=== PATIENT | male | born 1980 | race Caucasian/White ===

== ENCOUNTER 2017-03-29 03:43 | Emergency (ER) | payer SELFPAY ==
[~2017-03-29] VITALS: Ht 175.3 cm; Wt 95.3 kg
[2017-03-29 04:28] VITALS: BP 164/111
[2017-03-29] MEDS ORDERED: ceFAZolin IM 1 GM VIAL IM ONE ×2 (05:00→06:00)
[2017-03-29] MEDS ORDERED: LIDOCAINE 1% / SOD BICARB 8.4% 20 ML VIAL. IJ ONE (05:44)
[2017-03-29] MEDS ORDERED: CEPH-264 PO (06:33)
[2017-03-29] MEDS ORDERED: IBUP-1007 PO (06:33)
--- NOTE | 2017-03-29 06:33 | PHYS DOC ---
Past Medical History Past Medical History: Hypertension Past Surgical History: Other Additional Past Surgical Histo: T&M TUBES Alcohol Use: Rarely Drug Use: Marijuana Adult General Chief Complaint Chief Complaint: WOUND CHECK HPI HPI Patient is a 36 year old [f__sex] who presents with [] Review of Systems Review of Systems Constitutional: Denies fever or chills [] Eyes: Denies change in visual acuity, redness, or eye pain [] HENT: Denies nasal congestion or sore throat [] Respiratory: Denies cough or shortness of breath [] Cardiovascular: No additional information not addressed in HPI [] GI: Denies abdominal pain, nausea, vomiting, bloody stools or diarrhea [] : Denies dysuria or hematuria [] Musculoskeletal: Denies back pain or joint pain [] Integument: Denies rash or skin lesions [] Neurologic: Denies headache, focal weakness or sensory changes [] Endocrine: Denies polyuria or polydipsia [] Current Medications Current Medications Current Medications Medications (Trade) Dose Ordered Sig/Terrell Start Time Stop Time Status Last Admin Dose Admin Cefazolin Sodium (Ancef Im) 1 gm 1X ONCE 03/29/17 06:00 03/29/17 06:01 DC 03/29/17 05:50 1 GM Lidocaine/Sodium Bicarbonate (Buffered Lidocaine 1%) 20 ml STK-MED ONCE 03/29/17 05:44 03/29/17 05:45 DC Allergies Allergies Allergies Coded Allergies Type Severity Reaction Last Updated Verified No Known Drug Allergies 12/17/15 No Physical Exam Physical Exam Constitutional: Well developed, well nourished, no acute distress, non-toxic appearance. [] HENT: Normocephalic, atraumatic, bilateral external ears normal, oropharynx moist, no oral exudates, nose normal. [] Eyes: PERRLA, EOMI, conjunctiva normal, no discharge. [] Neck: Normal range of motion, no tenderness, supple, no stridor. [] Cardiovascular:Heart rate regular rhythm, no murmur [] Lungs & Thorax: Bilateral breath sounds clear to auscultation [] Abdomen: Bowel sounds normal, soft, no tenderness, no masses, no pulsatile masses. [] Skin: Warm, dry, no erythema, no rash. [] Back: No tenderness, no CVA tenderness. [] Extremities: No tenderness, no cyanosis, no clubbing, ROM intact, no edema. [] Neurologic: Alert and oriented X 3, normal motor function, normal sensory function, no focal deficits noted. [] Psychologic: Affect normal, judgement normal, mood normal. [] Current Patient Data Vital Signs Vital Signs Date Time Temp Pulse Resp B/P (MAP) Pulse Ox O2 Delivery O2 Flow Rate FiO2 03/29/17 04:28 98.1 98 18 97 Room Air 98.1 EKG EKG [] Radiology/Procedures Radiology/Procedures [] Course & Med Decision Making Course & Med Decision Making Pertinent Labs and Imaging studies reviewed. (See chart for details) [] Dragon Disclaimer Dragon Disclaimer This electronic medical record was generated, in whole or in part, using a voice recognition dictation system. Departure Departure Impression: Primary Impression: Muscle laceration Additional Impression: Wristdrop Disposition: 01 HOME, SELF-CARE Condition: STABLE Referrals: NO PCP (PCP) Patient Instructions: Cast or Splint Care, Laceration Care, Adult Additional Instructions: You have a laceration of the muscle in her forearm that's causing you to have lack of motion of your left wrist. I have spoken to at and they will contact you to arrange for surgery. If he do not hear from 's nurse by tomorrow, please call them at [phone] and let them know that you were seen in the ER and that Dr. Galarza was consulted for your care. Keep your splint on. Take the antibiotics as prescribed Scripts Cephalexin (KEFLEX) 500 Mg Capsule 500 MG PO QID for 10 Days, CAP Prov: REMIGIO LOGAN MD 03/29/17 Ibuprofen (IBUPROFEN) 600 Mg Tablet 600 MG PO PRN Q6HRS Y for PAIN, #20 TAB Prov: REMIGIO LOGAN MD 03/29/17 Splinting Splinting : Location: left arm Hand-Made Type: orthoglass Splint: volar Pre-Proc Neuro Vasc Exam: normal Post-Proc Neuro Vasc Exam: normal Problem Qualifiers Additional Impression: Wristdrop Laterality: left Qualified Codes: M21.332 - Wrist drop, left wrist REMIGIO LOGAN MD Mar 29, 2017 06:33 ESTER SOARES APRN Mar 29, 2017 07:18
--- NOTE | 2017-03-29 07:22 | RAD ---
EXAM: Left forearm 2 views. HISTORY: Laceration. COMPARISON: None. FINDINGS: There is a soft tissue defect along the radial aspect of the distal forearm. There is no radiopaque foreign body. No acute fractures are identified. There appears to be a chronic fracture of the fifth metacarpal. The joint spaces and alignment of the wrist and elbow appear maintained. IMPRESSION: 1. Soft tissue laceration laterally. No fracture or radiopaque foreign body.
== END 2017-03-29 07:20 | disposition home or self-care (01) ==
LOC: ER 03:43
DX: S66.822A Laceration of other specified muscles, fascia and tendons at wrist and hand level, left hand, initial encounter (principal); M21.332 Wrist drop, left wrist; I10 Essential (primary) hypertension; F12.10 Cannabis abuse, uncomplicated; X58.XXXA Exposure to other specified factors, initial encounter; Y93.89 Activity, other specified; Y99.8 Other external cause status; Y92.89 Other specified places as the place of occurrence of the external cause
CPT/HCPCS: 29125; 73090; 96372; 99284; J0690

== ENCOUNTER 2017-07-05 16:42 | Emergency (ER) | payer SELFPAY ==
[~2017-07-05] VITALS: Ht 175.3 cm; Wt 93.0 kg
[~2017-07-05 16:42] MED LIST: CEPH-264 PO; IBUP-1007 PO
--- NOTE | 2017-07-05 18:21 | PHYS DOC ---
Past Medical History Past Medical History: Hypertension Past Surgical History: Other Additional Past Surgical Histo: T&M TUBES, Adnoids removed. Alcohol Use: Rarely Drug Use: Marijuana Adult General Chief Complaint Chief Complaint: LOWER EXTREMITY SWELLING HPI HPI Patient is a 36 year old male who presents with one to 2 week history of progressive lower extremity edema right greater than left now with some discomfort in the legs; no chest pain or shortness of breath onset was gradual, moderate severity. He reports erythema but no fever. Reports hypertension is untreated and denies any history of blood clots to the legs or lungs or congestive heart failure. Review of Systems Review of Systems Constitutional: Denies fever or chills [] Eyes: Denies change in visual acuity, redness, or eye pain [] HENT: Denies nasal congestion or sore throat [] Respiratory: Denies cough or shortness of breath [] Cardiovascular: No additional information not addressed in HPI [] GI: Denies abdominal pain, nausea, vomiting, bloody stools or diarrhea [] : Denies dysuria or hematuria [] Musculoskeletal: Denies back pain or joint pain [] Integument: Denies rash or skin lesions [] Neurologic: Denies headache, focal weakness or sensory changes [] Endocrine: Denies polyuria or polydipsia [] Allergies Allergies Allergies Coded Allergies Type Severity Reaction Last Updated Verified No Known Drug Allergies 12/17/15 No Physical Exam Physical Exam Constitutional: Well developed, well nourished, no acute distress, non-toxic appearance. [] HENT: Normocephalic, atraumatic, bilateral external ears normal, oropharynx moist, no oral exudates, nose normal. [] Eyes: PERRLA, EOMI, conjunctiva normal, no discharge. [] Neck: Normal range of motion, no tenderness, supple, no stridor. [] Cardiovascular:Heart rate regular rhythm, no murmur [] Lungs & Thorax: Bilateral breath sounds clear to auscultation [] Abdomen: Bowel sounds normal, soft, no tenderness, no masses, no pulsatile masses. [] Skin: Warm, dry, no erythema, no rash. [] Back: No tenderness, no CVA tenderness. [] Extremities:, no cyanosis, no clubbing, ROM intact, edema right greater than left with erythema right greater than left and tenderness to palpation below the knee Neurologic: Alert and oriented X 3, normal motor function, normal sensory function, no focal deficits noted. [] Psychologic: Affect normal, judgement normal, mood normal. [] Current Patient Data Vital Signs Vital Signs Date Time Temp Pulse Resp B/P (MAP) Pulse Ox O2 Delivery O2 Flow Rate FiO2 07/05/17 19:30 100 172/108 (129) 99 07/05/17 17:05 98.2 17 Room Air 98.2 Lab Values Laboratory Tests Test 07/05/17 18:15 07/05/17 18:23 White Blood Count 11.9 x10^3/uL (4.0-11.0) H Red Blood Count 4.69 x10^6/uL (4.30-5.70) Hemoglobin 14.0 g/dL (13.0-17.5) Hematocrit 40.5 % (39.0-53.0) Mean Corpuscular Volume 87 fL (79-100) Mean Corpuscular Hemoglobin 30 pg (25-35) Mean Corpuscular Hemoglobin Concent 35 g/dL (31-37) Red Cell Distribution Width 13.3 % (11.5-14.5) Platelet Count 331 x10^3/uL (140-400) Neutrophils (%) (Auto) 75 % (31-73) H Lymphocytes (%) (Auto) 15 % (24-48) L Monocytes (%) (Auto) 8 % (0-9) Eosinophils (%) (Auto) 2 % (0-3) Basophils (%) (Auto) 1 % (0-3) Neutrophils # (Auto) 8.8 x10^3uL (1.8-7.7) H Lymphocytes # (Auto) 1.7 x10^3/uL (1.0-4.8) Monocytes # (Auto) 0.9 x10^3/uL (0.0-1.1) Eosinophils # (Auto) 0.3 x10^3/uL (0.0-0.7) Basophils # (Auto) 0.1 x10^3/uL (0.0-0.2) Sodium Level 139 mmol/L (136-145) Potassium Level 3.4 mmol/L (3.5-5.1) L Chloride Level 104 mmol/L (98-107) Carbon Dioxide Level 28 mmol/L (21-32) Anion Gap 7 (6-14) Blood Urea Nitrogen 17 mg/dL (8-26) Creatinine 1.1 mg/dL (0.7-1.3) Estimated GFR (Cockcroft-Gault) 75.3 BUN/Creatinine Ratio 15 (6-20) Glucose Level 131 mg/dL (70-99) H Calcium Level 8.5 mg/dL (8.5-10.1) Total Bilirubin 0.5 mg/dL (0.2-1.0) Aspartate Amino Transferase (AST) 22 U/L (15-37) Alanine Aminotransferase (ALT) 38 U/L (16-63) Alkaline Phosphatase 133 U/L (46-116) H MQ-Eoe-I-Type Natriuretic Peptide 56 pg/mL (0-124) Total Protein 6.6 g/dL (6.4-8.2) Albumin 3.1 g/dL (3.4-5.0) L Albumin/Globulin Ratio 0.9 (1.0-1.7) L POC Troponin I 0.00 ng/ml (<0.08) Laboratory Tests 07/05/17 18:15 Laboratory Tests 07/05/17 18:15 EKG EKG EKG sinus rhythm rate of 97 no STEMI QTC 446 signs of strain my interpretation EKG[] Radiology/Procedures Radiology/Procedures Chest x-ray[] normal no evidence of heart failure my interpretation Ultrasound bilateral lower extremities: No DVTs per radiology Course & Med Decision Making Course & Med Decision Making Pertinent Labs and Imaging studies reviewed. (See chart for details) Workup appears to be consistent with that with cellulitis and we will sent home with a prescription for clindamycin, advised to elevate the legs for the swelling, and advised follow-up PCP for eval of blood pressure meds.[] Dragon Disclaimer Dragon Disclaimer This electronic medical record was generated, in whole or in part, using a voice recognition dictation system. Departure Departure Impression: Primary Impression: Cellulitis of both lower extremities Disposition: 01 HOME, SELF-CARE Condition: STABLE Referrals: NO PCP (PCP) Patient Instructions: Cellulitis, [id number], Hypertension During , Meii-je-Ojiz Scripts Clindamycin Hcl (CLINDAMYCIN HCL) 150 Mg Capsule 2 CAP PO QID for 7 Days, #56 CAP Prov: DICK ISABEL MD 07/05/17 DICK ISABEL MD Jul 05, 2017 18:21
[2017-07-05 18:28] LABS: BASO # 0.1 x10^3/uL (0.0-0.2); BASO % 1 % (0-3); EOS % 2 % (0-3); HEMATOCRIT 40.5 % (39.0-53.0); LYMPH # 1.7 x10^3/uL (1.0-4.8); LYMPH % 15 % (24-48); MEAN CORPUSCULAR HEMOGLOBIN 30 pg (25-35); MEAN CORPUSCULAR HGB CONC 35 g/dL (31-37); MEAN CORPUSCULAR VOLUME 87 fL (79-100); MONO % 8 % (0-9); NEUT % 75 % (31-73); PLATELET COUNT 331 x10^3/uL (140-400); RED BLOOD COUNT 4.69 x10^6/uL (4.30-5.70); RED CELL DISTRIBUTION WIDTH 13.3 % (11.5-14.5); WHITE BLOOD COUNT 11.9 x10^3/uL (4.0-11.0)
[2017-07-05 18:42] LABS: CALCIUM 8.5 mg/dL (8.5-10.1); CREATININE 1.1 mg/dL (0.7-1.3); GFR 75.3; POTASSIUM 3.4 mmol/L (3.5-5.1)
[2017-07-05 18:49] LABS: ALBUMIN 3.1 g/dL (3.4-5.0); ALBUMIN/GLOBULIN RATIO 0.9 (1.0-1.7); TOTAL BILIRUBIN 0.5 mg/dL (0.2-1.0); TOTAL PROTEIN 6.6 g/dL (6.4-8.2)
--- NOTE | 2017-07-05 18:54 | RAD ---
Bilateral lower extremity venous doppler ultrasound History: Bilateral lower extremity swelling for 3 days, redness Comparison: None Findings: Multiple grayscale, color, and duplex spectral analysis sonographic images were acquired of the bilateral lower extremity veins to evaluate for the presence of DVT. 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 There is normal phasicity. Normal compression, color-flow, and augmentation is demonstrated from the bilateral common femoral to the popliteal veins. There is normal color flow of the proximal greater saphenous and profunda femoris veins. There is normal color flow of segments of the calf veins. There is edema of the soft tissues. Incidental note is made of lymph nodes of the groin regions. Impression: 1. There is no evidence of deep venous thrombosis from the bilateral common femoral to popliteal veins. Electronically signed by: Louie Nevarez MD (07/05/2017 6:50 PM) [facility]
[2017-07-05 19:30] VITALS: BP 172/108
[2017-07-05] MEDS ORDERED: CLIN150C14 PO (20:09)
--- NOTE | 2017-07-06 06:44 | EKG ---
[facility] [address] [place] [address] Test Date: 2017-07-05 Test Time: 18:55:33 Pat Name: WILLIS CORTEZ Department: Room: Gender: M [employer] Operator: : 1980 Requested By: DICK ISABEL Order Number: [id number] Reading MD: Measurements Intervals [place] Rate: 97 P: 36 CA: 168 QRS: 33 QRSD: 100 T: 15 QT: 348 QTc: 446 Interpretive Statements SINUS RHYTHM NORMAL ECG RI6.01 Unconfirmed report No previous ECG available for comparison
--- NOTE | 2017-07-06 07:54 | RAD ---
Portable chest, 07/05/2017: History: Hypertension, lower extremity swelling and redness The heart size and pulmonary vascularity are normal. No pulmonary infiltrates are seen. There is no evidence of pleural fluid. IMPRESSION: No acute cardiopulmonary abnormality is detected.
== END 2017-07-05 20:13 | disposition home or self-care (01) ==
LOC: ER 16:42
DX: L03.115 Cellulitis of right lower limb (principal); L03.116 Cellulitis of left lower limb; I10 Essential (primary) hypertension
CPT/HCPCS: 36415; 71010; 80053; 83880; 84484; 85025; 93005; 93970; 99285-25

== ENCOUNTER 2019-06-28 12:21 | Emergency (ER) | payer SELFPAY ==
[~2019-06-28] VITALS: Ht 175.3 cm; Wt 100.7 kg
[~2019-06-28 12:21] MED LIST changes: +CLIN150C14 PO
[2019-06-28 13:25] LABS: BILIRUBIN,URINE NEGATIVE (NEG); CLARITY,URINE CLEAR; COLOR,URINE YELLOW; NITRITE,URINE NEGATIVE (NEG); PROTEIN,URINE NEGATIVE (NEG-TRACE)
[2019-06-28] MEDS ORDERED: IV NORMAL SALINE 1000ML BAG 1,000 ML IV SCH (13:27)
[2019-06-28] MEDS ORDERED: KETOROLAC 30 MG/ML VIAL. IV ONE (13:30)
--- NOTE | 2019-06-28 13:36 | PHYS DOC ---
Past Medical History Past Medical History: Hypertension (states takes no medication currently, but is supposed to) Past Surgical History: Other Additional Past Surgical Histo: T&M TUBES, Adnoids removed. Alcohol Use: Rarely Drug Use: Marijuana Adult General Chief Complaint Chief Complaint: TESTICULAR PAIN OR INJURY HPI HPI Pt is a 38 y/o WM who presents to the ED for evaluation. States had the re latively sudden onset of R testicular pain, as well as R flank and RLQ pain, 2 days ago. Pain has been steady. Movement seems to worsen the patient's pain. He denies any dysuria or hematuria. He has not had any nausea, vomiting, or diarrhea. He denies any definite injuries, although he states he did strain his groin slightly about a week prior to the onset of the pain, but did not have any significant discomfort since that time. Review of Systems Review of Systems Constitutional: Denies fever or chills [] Eyes: Denies change in visual acuity, redness, or eye pain [] HENT: Denies nasal congestion or sore throat [] Respiratory: Denies cough or shortness of breath [] Cardiovascular: The patient denies any shortness of breath, chest pain, palpitations, or orthopnea [] GI: Denies nausea, vomiting, bloody stools or diarrhea [] : Denies dysuria or hematuria [] Musculoskeletal: Denies back pain or joint pain [] Integument: Denies rash or skin lesions [] Neurologic: Denies headache, focal weakness or sensory changes [] Endocrine: Denies polyuria or polydipsia [] All other systems were reviewed and found to be within normal limits, except as documented in this note. Current Medications Current Medications Current Medications Medications (Trade) Dose Ordered Sig/Terrell Start Time Stop Time Status Last Admin Dose Admin Ketorolac Tromethamine (Toradol 30mg Vial) 30 mg 1X ONCE 06/28/19 13:30 06/28/19 13:35 DC 06/28/19 14:36 30 MG Sodium Chloride 1,000 ml @ 1,000 mls/hr Q1H 06/28/19 13:27 06/28/19 14:26 DC 06/28/19 14:36 1,000 MLS/HR Allergies Allergies Allergies Coded Allergies Type Severity Reaction Last Updated Verified No Known Drug Allergies 12/17/15 No Physical Exam Physical Exam PHYSICAL EXAM: CONSTITUTIONAL: Well developed, well nourished HEAD: normocephalic, atraumatic EENT: PERRL, EOMI. Conjunctivae normal color, sclerae non-icteric; moist mucous membranes. NECK: Supple, non-tender; no meningismus. LUNGS: Lungs CTA, breathing even and unlabored. Normal air movement. HEART: Regular rate and rhythm, no murmur CHEST: No deformity; non-tender ABDOMEN: The abdomen is soft, there is mild diffuse right-sided abdominal tenderness to palpation, somewhat lateral to McBurney's point, and somewhat towards the right flank, the remainder the abdomen is soft and non-tender, no masses or bruits. EXTREM: Normal ROM; no deformity, no calf tenderness. Normal pulses palpable in all extremities. There is no pedal edema. SKIN: No rash; no diaphoresis NEURO: Alert; normal speech and cognition; CN's grossly intact; strength grossly intact without focal deficit. BACK: There is mild right-sided CVA TTP. GENITOURINARY: There is mild enlargement of the right testicle relative to the left, with tenderness to palpation. There are no palpable inguinal hernias. There is no penile discharge, the remainder the genitalia is unremarkable. The skin of the scrotum is unremarkable. Current Patient Data Vital Signs Vital Signs Date Time Temp Pulse Resp B/P (MAP) Pulse Ox O2 Delivery O2 Flow Rate FiO2 06/28/19 14:36 92 16 224/121 (155) 99 Room Air 06/28/19 13:05 98.8 98.8 Lab Values Laboratory Tests Test 06/28/19 13:05 06/28/19 14:23 Urine Collection Type Unknown Urine Color Yellow Urine Clarity Clear Urine pH 6.0 Urine Specific [place] 1.025 Urine Protein Negative mg/dL (NEG-TRACE) Urine Glucose (UA) Negative mg/dL (NEG) Urine Ketones (Stick) Negative mg/dL (NEG) Urine Blood Negative (NEG) Urine Nitrite Negative (NEG) Urine Bilirubin Negative (NEG) Urine Urobilinogen Dipstick 1.0 mg/dL (0.2 mg/dL) Urine Leukocyte Esterase Negative (NEG) Urine RBC 0 /HPF (0-2) Urine WBC 0 /HPF (0-4) Urine Bacteria 0 /HPF (0-FEW) Urine Mucus Mod /LPF White Blood Count 13.5 x10^3/uL (4.0-11.0) H Red Blood Count 4.78 x10^6/uL (4.30-5.70) Hemoglobin 14.2 g/dL (13.0-17.5) Hematocrit 41.3 % (39.0-53.0) Mean Corpuscular Volume 86 fL (79-100) Mean Corpuscular Hemoglobin 30 pg (25-35) Mean Corpuscular Hemoglobin Concent 34 g/dL (31-37) Red Cell Distribution Width 13.4 % (11.5-14.5) Platelet Count 389 x10^3/uL (140-400) Neutrophils (%) (Auto) 72 % (31-73) Lymphocytes (%) (Auto) 19 % (24-48) L Monocytes (%) (Auto) 7 % (0-9) Eosinophils (%) (Auto) 1 % (0-3) Basophils (%) (Auto) 1 % (0-3) Neutrophils # (Auto) 9.7 x10^3/uL (1.8-7.7) H Lymphocytes # (Auto) 2.5 x10^3/uL (1.0-4.8) Monocytes # (Auto) 0.9 x10^3/uL (0.0-1.1) Eosinophils # (Auto) 0.1 x10^3/uL (0.0-0.7) Basophils # (Auto) 0.1 x10^3/uL (0.0-0.2) Sodium Level 139 mmol/L (136-145) Potassium Level 3.7 mmol/L (3.5-5.1) Chloride Level 103 mmol/L (98-107) Carbon Dioxide Level 28 mmol/L (21-32) Anion Gap 8 (6-14) Blood Urea Nitrogen 15 mg/dL (8-26) Creatinine 0.9 mg/dL (0.7-1.3) Estimated GFR (Cockcroft-Gault) 93.9 BUN/Creatinine Ratio 17 (6-20) Glucose Level 97 mg/dL (70-99) Calcium Level 9.0 mg/dL (8.5-10.1) Total Bilirubin 0.6 mg/dL (0.2-1.0) Aspartate Amino Transferase (AST) 23 U/L (15-37) Alanine Aminotransferase (ALT) 30 U/L (16-63) Alkaline Phosphatase 136 U/L (46-116) H Total Protein 7.0 g/dL (6.4-8.2) Albumin 3.2 g/dL (3.4-5.0) L Albumin/Globulin Ratio 0.8 (1.0-1.7) L Lipase 74 U/L (73-393) Laboratory Tests 06/28/19 14:23 Laboratory Tests 06/28/19 14:23 EKG EKG [] Radiology/Procedures Radiology/Procedures [PROCEDURE: CT ABDOMEN PELVIS WO CONTRAST CT STUDY OF THE ABDOMEN AND PELVIS WITHOUT CONTRAST CLINICAL INDICATIONS: Right groin pain. Right flank pain. Right lower quadrant pain. TECHNIQUE: Noncontrast helical CT scanning of the abdomen and pelvis was performed. Without contrast, the sensitivity to detect organ pathology and GI tract pathology is decreased. PQRS compliance Statement One or more of the following individualized dose reduction techniques were utilized for this study: 1. Automated exposure control 2. Adjustment of the mA and/or kV according to patient size 3. Use of iterative reconstruction technique COMPARISON: None available. FINDINGS: The liver and spleen and pancreas are homogeneous in appearance on this noncontrast study. The gallbladder is normal and no extra hepatic biliary ductal dilatation is seen. No adrenal mass is evident. No hydronephrosis or hydroureter or ureteral stone or renal stone is seen. No renal mass is seen on either side on this noncontrast study. No focal aneurysmal dilatation of the abdominal aorta is seen. No enlarged abdominal lymphadenopathy is evident. Bilateral inguinal lymph nodes are seen. The largest lymph node is seen on the left side. It measures 3.2 cm in vertical dimension. No inguinal hernia or anterior abdominal wall hernia is seen. The urinary bladder is not distended. The appendix and terminal ileum are unremarkable. No obstructive bowel pattern is evident. Mild fecal retention is seen. The stomach is not distended. No free air or free fluid or mesenteric edema is seen. Minimal grade 1 anterolisthesis of L5-S1 is seen. There is spondylolysis of the right side of L5. No spondylolysis is seen on the left side of L5. No compression fracture of the lumbar spine is seen. No lytic process is evident. No lung base consolidation is evident. IMPRESSION: No acute abnormality of the abdomen or pelvis. Grade 1 anterolisthesis of L5-S1. 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 Bilateral inguinal lymph nodes. Clinical follow-up with any palpable lymph nodes is recommended. :] PROCEDURE: TESTICULAR/SCROTUM TESTICULAR/SCROTUM History: Right testicular pain. Comparison: None. Technique: Multiple grayscale, color flow Doppler and Doppler spectral analysis images of the scrotum are obtained. Findings: Right testicle measures 4.2 x 3.0 x 2.0 cm. Right testicle demonstrates normal parenchymal echogenicity. The right epididymis is unremarkable. Left testicle measures 4.0 x 2.6 x 2.3 cm. Left testicle demonstrates normal parenchymal echogenicity. The left epididymis is unremarkable. Small bilateral hydroceles. No varicoceles. Scrotal hyperemia or swelling are not seen. Doppler imaging demonstrates normal flow to both testicles, without evidence of torsion. IMPRESSION: 1. Small bilateral hydroceles, right greater than left. 2. Otherwise, unremarkable testicular ultrasound.. Course & Med Decision Making Course & Med Decision Making Pertinent Labs and Imaging studies reviewed. (See chart for details) [] The patient's condition remained stable. I discussed test results with the patient, the uncertain etiology of his symptoms, need for close urology follow- up, and return precautions in detail. I will cover the patient presumptively for possibility of orchitis. I discussed the use of NSAIDs for pain. The patient states he has a history of hypertension, and has been on medication in the past, but does not have a physician and has not been taking any medication for a long time. He was never taken off of medication. He is noted to be hypertensive in the emergency department, but is asymptomatic from his hypertension. I did discuss importance of establishing care with a PCP for further outpatient blood pressure management and monitoring, and the patient will be started on a course of antihypertensive medication initially. Return precautions were discussed in detail. Dragon Disclaimer Dragon Disclaimer This electronic medical record was generated, in whole or in part, using a voice recognition dictation system. Departure Departure Impression: Primary Impression: Testicular pain Additional Impression: Hypertension Disposition: HOME, SELF-CARE Condition: STABLE Referrals: HARDEEP COSME MD Patient Instructions: Groin Strain, Hypertension, Scrotal Swelling, Testicular Problems and Self-Exam Additional Instructions: Ibuprofen 400-600 mg every 6 hours may help improve your symptoms. Your blood pressure was noted to be significantly elevated today. Untreated an improperly manage blood pressure could result in long-term cardiac stroke risks, and it is critically important that you follow up with a primary care provider for further outpatient evaluation and monitoring. Use the list of primary care provider clinics provided to help establish further outpatient care. Scripts Lisinopril/Hydrochlorothiazide (LISINOPRIL-HCTZ 20-25 MG TAB) 1 Each Tablet 1 TAB PO DAILY, #90 TAB 0 Refills Prov: MEGHA BELTRAN MD 06/28/19 Doxycycline Hyclate (DOXYCYCLINE HYCLATE) 100 Mg Tablet 1 TAB PO BID, #14 TAB Prov: MEGHA BELTRAN MD 06/28/19 Problem Qualifiers MEGHA BELTRAN MD Jun 28, 2019 13:36
[2019-06-28 13:48] LABS: BACTERIA,URINE 0 /HPF (0-FEW); RBC,URINE 0 /HPF (0-2); WBC,URINE 0 /HPF (0-4)
--- NOTE | 2019-06-28 14:18 | RAD ---
TESTICULAR/SCROTUM History: Right testicular pain. Comparison: None. Technique: Multiple grayscale, color flow Doppler and Doppler spectral analysis images of the scrotum are obtained. Findings: Right testicle measures 4.2 x 3.0 x 2.0 cm. Right testicle demonstrates normal parenchymal echogenicity. The right epididymis is unremarkable. Left testicle measures 4.0 x 2.6 x 2.3 cm. Left testicle demonstrates normal parenchymal echogenicity. The left epididymis is unremarkable. Small bilateral hydroceles. No varicoceles. Scrotal hyperemia or swelling are not seen. Doppler imaging demonstrates normal flow to both testicles, without evidence of torsion. IMPRESSION: 1. Small bilateral hydroceles, right greater than left. 2. Otherwise, unremarkable testicular ultrasound.. Electronically signed by: Rc Arreguin DO (06/28/2019 2:15 PM) [facility]
[2019-06-28 14:33] LABS: BASO # 0.1 x10^3/uL (0.0-0.2); BASO % 1 % (0-3); EOS # 0.1 x10^3/uL (0.0-0.7); EOS % 1 % (0-3); HEMATOCRIT 41.3 % (39.0-53.0); HEMOGLOBIN 14.2 g/dL (13.0-17.5); LYMPH # 2.5 x10^3/uL (1.0-4.8); LYMPH % 19 % (24-48); MEAN CORPUSCULAR HEMOGLOBIN 30 pg (25-35); MEAN CORPUSCULAR HGB CONC 34 g/dL (31-37); MEAN CORPUSCULAR VOLUME 86 fL (79-100); MONO # 0.9 x10^3/uL (0.0-1.1); MONO % 7 % (0-9); NEUT # 9.7 x10^3/uL (1.8-7.7); NEUT % 72 % (31-73); PLATELET COUNT 389 x10^3/uL (140-400); RED BLOOD COUNT 4.78 x10^6/uL (4.30-5.70); RED CELL DISTRIBUTION WIDTH 13.4 % (11.5-14.5); WHITE BLOOD COUNT 13.5 x10^3/uL (4.0-11.0)
[2019-06-28 14:49] LABS: CREATININE 0.9 mg/dL (0.7-1.3); GFR 93.9; POTASSIUM 3.7 mmol/L (3.5-5.1)
--- NOTE | 2019-06-28 14:52 | RAD ---
CT STUDY OF THE ABDOMEN AND PELVIS WITHOUT CONTRAST CLINICAL INDICATIONS: Right groin pain. Right flank pain. Right lower quadrant pain. TECHNIQUE: Noncontrast helical CT scanning of the abdomen and pelvis was performed. Without contrast, the sensitivity to detect organ pathology and GI tract pathology is decreased. PQRS compliance Statement One or more of the following individualized dose reduction techniques were utilized for this study: 1. Automated exposure control 2. Adjustment of the mA and/or kV according to patient size 3. Use of iterative reconstruction technique COMPARISON: None available. FINDINGS: The liver and spleen and pancreas are homogeneous in appearance on this noncontrast study. The gallbladder is normal and no extra hepatic biliary ductal dilatation is seen. No adrenal mass is evident. No hydronephrosis or hydroureter or ureteral stone or renal stone is seen. No renal mass is seen on either side on this noncontrast study. No focal aneurysmal dilatation of the abdominal aorta is seen. No enlarged abdominal lymphadenopathy is evident. Bilateral inguinal lymph nodes are seen. The largest lymph node is seen on the left side. It measures 3.2 cm in vertical dimension. No inguinal hernia or anterior abdominal wall hernia is seen. The urinary bladder is not distended. The appendix and terminal ileum are unremarkable. No obstructive bowel pattern is evident. Mild fecal retention is seen. The stomach is not distended. No free air or free fluid or mesenteric edema is seen. Minimal grade 1 anterolisthesis of L5-S1 is seen. There is spondylolysis of the right side of L5. No spondylolysis is seen on the left side of L5. No compression fracture of the lumbar spine is seen. No lytic process is evident. No lung base consolidation is evident. IMPRESSION: No acute abnormality of the abdomen or pelvis. Grade 1 anterolisthesis of L5-S1. 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 Bilateral inguinal lymph nodes. Clinical follow-up with any palpable lymph nodes is recommended. : Electronically signed by: Juan Miguel John MD (06/28/2019 2:49 PM) [place] [id number]
[2019-06-28 14:55] LABS: ALBUMIN 3.2 g/dL (3.4-5.0); ALBUMIN/GLOBULIN RATIO 0.8 (1.0-1.7); TOTAL BILIRUBIN 0.6 mg/dL (0.2-1.0)
[2019-06-28] MEDS ORDERED: DOXY100T PO (15:08)
[2019-06-28] MEDS ORDERED: LISI1TAB20 PO (15:13)
[2019-06-28] MEDS ORDERED: cloNIDine HCL 0.1 MG TABLET PO ONE (15:30)
[2019-06-28 15:42] VITALS: BP 202/135
== END 2019-06-28 15:50 | disposition home or self-care (01) ==
LOC: ER 12:21
DX: N50.811 Right testicular pain (principal); I10 Essential (primary) hypertension; R10.31 Right lower quadrant pain; N43.3 Hydrocele, unspecified; M47.817 Spondylosis without myelopathy or radiculopathy, lumbosacral region
CPT/HCPCS: 36415; 74176; 76870; 80053; 81001; 83690; 85025; 96374; 99285; J1885; J7030

== ENCOUNTER 2019-12-09 22:24 | Inpatient (IN) | payer SELFPAY ==
[~2019-12-09] VITALS: Ht 175.3 cm; Wt 101.2 kg
[~2019-12-09 22:24] MED LIST changes: +AMLO10TA8 PO; +ATOR20TA58 PO; +CARV12.511 PO; +DOXY100T PO; +LISI1TAB20 PO; +LOSA1TAB12 PO
--- NOTE | 2019-12-09 22:44 | PHYS DOC ---
Past Medical History Past Medical History: Hypertension Past Surgical History: Other Additional Past Surgical Histo: T&M TUBES, Adnoids removed. Smoking Status: Current Every Day Smoker Alcohol Use: Rarely Drug Use: Marijuana Adult General Chief Complaint Chief Complaint: SYNCOPE HPI HPI Patient is a 39 year old male with history of hypertension and recent hospitalization with hypertensive urgency who presents via EMS with complaint of syncope. Patient was discharged few offers ago after couple days hospitalization with elevation of blood pressure and states he felt dizzy and lightheadedness while walking and then had a syncope with loss of consciousness without seizure activity. Patient denies chest pain, shortness of breath, focal neuro deficit, nausea and vomiting, history of syncope. Patient complaining of generalized weakness. Patient was systolic blood pressure of 112 at arrival of EMS. Review of Systems Review of Systems Constitutional: Denies fever or chills [] Eyes: Denies change in visual acuity, redness, or eye pain [] HENT: Denies nasal congestion or sore throat [] Respiratory: Denies cough or shortness of breath [] Cardiovascular: No additional information not addressed in HPI [] GI: Denies abdominal pain, nausea, vomiting, bloody stools or diarrhea [] : Denies dysuria or hematuria [] Musculoskeletal: Denies back pain or joint pain [] Integument: Denies rash or skin lesions [] Neurologic: Denies headache, focal weakness or sensory changes, reports dizziness and syncope [] Endocrine: Denies polyuria or polydipsia [] All other systems were reviewed and found to be within normal limits, except as documented in this note. Current Medications Current Medications Current Medications Medications (Trade) Dose Ordered Sig/Terrell Start Time Stop Time Status Last Admin Dose Admin Sodium Chloride 1,000 ml @ 125 mls/hr Q8H 12/10/19 00:30 12/11/19 00:29 Allergies Allergies Allergies Coded Allergies Type Severity Reaction Last Updated Verified No Known Drug Allergies 12/17/15 No Physical Exam Physical Exam Constitutional: Well developed, well nourished, mild distress, non-toxic appearance. [] HENT: Normocephalic, atraumatic. Eyes: PERRLA, EOMI, conjunctiva normal, no discharge. [] Neck: Normal range of motion, no tenderness, supple, no stridor. [] Cardiovascular: Tachycardia, no murmur [] Lungs & Thorax: Bilateral breath sounds clear to auscultation [] Abdomen: Bowel sounds normal, soft, no tenderness, no masses, no pulsatile masses. [] Skin: Warm, dry, no erythema, no rash. [] Back: No tenderness, no CVA tenderness. [] Extremities: No tenderness, no cyanosis, no clubbing, ROM intact, no edema. [] Neurologic: Alert and oriented X 3, no focal deficits noted. [] Psychologic: Affect normal, judgement normal, mood normal. [] Current Patient Data Vital Signs Vital Signs Date Time Temp Pulse Resp B/P (MAP) Pulse Ox O2 Delivery O2 Flow Rate FiO2 12/09/19 22:25 98.2 104 18 148/80 (102) 95 Room Air 98.2 Lab Values Laboratory Tests Test 12/09/19 20:35 White Blood Count 15.9 x10^3/uL (4.0-11.0) H Red Blood Count 6.17 x10^6/uL (4.30-5.70) H Hemoglobin 18.0 g/dL (13.0-17.5) H Hematocrit 51.9 % (39.0-53.0) Mean Corpuscular Volume 84 fL (79-100) Mean Corpuscular Hemoglobin 29 pg (25-35) Mean Corpuscular Hemoglobin Concent 35 g/dL (31-37) Red Cell Distribution Width 13.5 % (11.5-14.5) Platelet Count 428 x10^3/uL (140-400) H Neutrophils (%) (Auto) 74 % (31-73) H Lymphocytes (%) (Auto) 15 % (24-48) L Monocytes (%) (Auto) 10 % (0-9) H Eosinophils (%) (Auto) 0 % (0-3) Basophils (%) (Auto) 1 % (0-3) Neutrophils # (Auto) 11.7 x10^3/uL (1.8-7.7) H Lymphocytes # (Auto) 2.4 x10^3/uL (1.0-4.8) Monocytes # (Auto) 1.7 x10^3/uL (0.0-1.1) H Eosinophils # (Auto) 0.0 x10^3/uL (0.0-0.7) Basophils # (Auto) 0.1 x10^3/uL (0.0-0.2) Sodium Level 134 mmol/L (136-145) L Potassium Level 4.0 mmol/L (3.5-5.1) Chloride Level 95 mmol/L (98-107) L Carbon Dioxide Level 29 mmol/L (21-32) Anion Gap 10 (6-14) Blood Urea Nitrogen 36 mg/dL (8-26) H Creatinine 2.2 mg/dL (0.7-1.3) H Estimated GFR (Cockcroft-Gault) 33.3 BUN/Creatinine Ratio 16 (6-20) Glucose Level 102 mg/dL (70-99) H Calcium Level 10.9 mg/dL (8.5-10.1) H Magnesium Level 2.5 mg/dL (1.8-2.4) H Total Bilirubin 0.6 mg/dL (0.2-1.0) Aspartate Amino Transferase (AST) 21 U/L (15-37) Alanine Aminotransferase (ALT) 62 U/L (16-63) Alkaline Phosphatase 187 U/L (46-116) H Troponin I Quantitative < 0.017 ng/mL (0.000-0.055) JB-Kse-T-Type Natriuretic Peptide 340 pg/mL (0-124) H Total Protein 8.5 g/dL (6.4-8.2) H Albumin 3.4 g/dL (3.4-5.0) Albumin/Globulin Ratio 0.7 (1.0-1.7) L Laboratory Tests 12/09/19 20:35 Laboratory Tests 12/09/19 20:35 EKG EKG EKG interpreted by me. EKG at 2249 showed normal sinus rhythm at rate of 93, normal [place] and QT intervals, T-wave abnormality in lateral leads, no acute ST and T-wave elevation. Radiology/Procedures Radiology/Procedures [facility] [address] [place], [place] [id number] IMAGING REPORT Signed PATIENT: WILLIS CORTEZ ACCOUNT: [id number] : 1980 LOCATION: ER AGE: 39 SEX: M EXAM STATUS: REG ER ORD. PHYSICIAN: OMAR BLANK MD REASON: syncope PROCEDURE: PORTABLE CHEST 1V EXAM: CHEST ONE VIEW. HISTORY: Syncope. COMPARISON: 12/07/2019. FINDINGS: A frontal view of the chest is obtained. There are no confluent infiltrates. There is no pneumothorax or pleural effusion. The heart is not enlarged. IMPRESSION: 1. No confluent infiltrates. Electronically signed by: Jana Munoz MD (12/10/2019 12:15 AM) [id number] DICTATED and SIGNED BY: ELA MUNOZ MD DATE: 12/10/19 0015 Course & Med Decision Making Course & Med Decision Making Pertinent Labs and Imaging studies reviewed. (See chart for details) Evaluation of patient in ER showed 39-year-old male patient with discharge from hospital today and complaining of a syncopal episode and generalized weakness. Patient had mild tachycardia without focal neuro deficit. Patient had elevation of BUN/creatinine normal BUN/creatinine in his recent admission. She had elevation of calcium and magnesium that was most likely because of concentration of the blood. Patient treated with IV fluid. Plan to admit patient with diagno sis of dehydration and acute renal insufficiency. Patient requiring admission for further evaluation and treatment. Discussed with Dr. Downey who is in agreement with admission. Discussed findings and plan with patient and family, who acknowledge understanding and agreement. Dragon Disclaimer Dragon Disclaimer This electronic medical record was generated, in whole or in part, using a voice recognition dictation system. Departure Departure Impression: Primary Impression: IVETT (acute kidney injury) Additional Impressions: Syncope Dehydration Disposition: ADMITTED INPATIENT (at 00 13) Admitting Physician: HIMS (Dr. Downey accepted admission) Condition: IMPROVED Referrals: NO PCP (PCP) Problem Qualifiers Additional Impressions: Syncope Syncope type: unspecified Qualified Codes: R55 - Syncope and collapse OMAR BLANK MD Dec 09, 2019 22:44
[2019-12-09 22:50] LABS: BASO # 0.1 x10^3/uL (0.0-0.2); BASO % 1 % (0-3); EOS % 0 % (0-3); HEMATOCRIT 51.9 % (39.0-53.0); LYMPH # 2.4 x10^3/uL (1.0-4.8); LYMPH % 15 % (24-48); MEAN CORPUSCULAR HEMOGLOBIN 29 pg (25-35); MEAN CORPUSCULAR HGB CONC 35 g/dL (31-37); MEAN CORPUSCULAR VOLUME 84 fL (79-100); MONO # 1.7 x10^3/uL (0.0-1.1); MONO % 10 % (0-9); NEUT # 11.7 x10^3/uL (1.8-7.7); NEUT % 74 % (31-73); PLATELET COUNT 428 x10^3/uL (140-400); RED BLOOD COUNT 6.17 x10^6/uL (4.30-5.70); RED CELL DISTRIBUTION WIDTH 13.5 % (11.5-14.5); WHITE BLOOD COUNT 15.9 x10^3/uL (4.0-11.0)
[2019-12-09 23:00] LABS: CALCIUM 10.9 mg/dL (8.5-10.1); CREATININE 2.2 mg/dL (0.7-1.3); GFR 33.3
[2019-12-09 23:07] LABS: ALBUMIN 3.4 g/dL (3.4-5.0); ALBUMIN/GLOBULIN RATIO 0.7 (1.0-1.7); MAGNESIUM 2.5 mg/dL (1.8-2.4); TOTAL BILIRUBIN 0.6 mg/dL (0.2-1.0); TOTAL PROTEIN 8.5 g/dL (6.4-8.2)
--- NOTE | 2019-12-09 23:24 | EKG ---
[facility] [address] [place] [address] Test Date: 2019-12-09 Test Time: 22:49:31 Pat Name: WILLIS CORTEZ Department: Room: Gender: M Crew Attendant: : 1980 Requested By: OMAR BLANK Order Number: [id number] Reading MD: Measurements Intervals [place] Rate: 93 P: 38 AL: 166 QRS: 33 QRSD: 100 T: 94 QT: 356 QTc: 445 Interpretive Statements SINUS RHYTHM T ABNORMALITY IN HIGH LATERAL LEADS ABNORMAL ECG RI6.01 No previous ECG available for comparison
[2019-12-10] VITALS (9 sets, daily range): BP systolic 130–174; BP diastolic 87–106
[2019-12-10] MEDS ORDERED: IV NORMAL SALINE 1000ML BAG 1,000 ML IV ONE (00:15)
--- NOTE | 2019-12-10 00:18 | RAD ---
EXAM: CHEST ONE VIEW. HISTORY: Syncope. COMPARISON: 12/07/2019. FINDINGS: A frontal view of the chest is obtained. There are no confluent infiltrates. There is no pneumothorax or pleural effusion. The heart is not enlarged. IMPRESSION: 1. No confluent infiltrates. Electronically signed by: Jana Munoz MD (12/10/2019 12:15 AM) [id number]
[2019-12-10] MEDS: IV NORMAL SALINE 1000ML BAG 1,000 ML IV SCH ×3 (03:46→16:30)
--- NOTE | 2019-12-10 10:28 | PDOC1 ---
History and Physical Date of Admission Date of Admission DATE: 12/10/19 TIME: 10:20 Identification/Chief Complaint Chief Complaint seen in er with syncope , 39 year old male with history of hypertension and recent hospitalization with hypertensive urgency who presented via EMS with complaint of syncope. was discharged few hours ago after couple days hospitalization with elevation of blood pressure and states he felt dizzy and lightheadedness while walking ///then had a syncope with loss of consciousness without seizure activity Past Medical History Past Medical History Hypertensive urgency Hyperglycemia Medication nonadherence smoker fhx obesity Cardiovascular: HTN Past Surgical History Past Surgical History: Tonsillectomy Family History Family History: Hypertension Social History Smoke: <1 pack per day ALCOHOL: none Drugs: Marijuana Current Problem List Problem List Problems Medical Problems: (1) Dehydration Status: Acute Current Medications Current Medications Current Medications Sodium Chloride 1,000 ml @ 1,000 mls/hr 1X ONCE IV Last administered on 12/10/19at 00:20; Start 12/10/19 at 00:15; Stop 12/10/19 at 01:14; Status DC Sodium Chloride 1,000 ml @ 125 mls/hr Q8H IV Last administered on 12/10/19at 03:46; Start 12/10/19 at 00:30; Stop 12/11/19 at 00:29 Active Scripts Active Hyzaar 100-25 Tablet (Losartan/Hydrochlorothiazide) 1 Each Tablet 1 Tab PO DAILY 90 Days Amlodipine Besylate 10 Mg Tablet 10 Mg PO DAILY 90 Days Carvedilol (Carvedilol) 12.5 Mg Tablet 12.5 Mg PO BIDWMEALS 90 Days Atorvastatin Calcium 20 Mg Tablet 20 Mg PO QHS 90 Days Allergies Allergies: Coded Allergies: No Known Drug Allergies (Unverified , 12/17/15) ROS Review of System Review of Systems Review of Systems Constitutional: Denies fever or chills [] Eyes: Denies change in visual acuity, redness, or eye pain [] HENT: Denies nasal congestion or sore throat [] Respiratory: Denies cough or shortness of breath [] Cardiovascular: No additional information not addressed in HPI [] GI: Denies abdominal pain, nausea, vomiting, bloody stools or diarrhea [] : Denies dysuria or hematuria [] Musculoskeletal: Denies back pain or joint pain [] Integument: Denies rash or skin lesions [] Neurologic: Denies headache, focal weakness or sensory changes, reports dizzine ss and syncope [] Endocrine: Denies polyuria or polydipsia [] 14 pt systems were reviewed and found to be within normal limits, except as documented . Hematological and Lymphatic: No: Bleeding Problems, Blood Clots, Blood Transfusions, Brusing, Night Sweats, Pallor, Swollen Lymph Nodes, Other Cardiovascular: No Chest Pain, No Palpitations, No Orthopnea, No Paroxysmal Noc. Dyspnea, No Edema, No Lt Headedness, No Other Skin: No Dry Skin, No Eczema, No Hair Changes, No Lumps, No Mole Changes, No Mottling, No Nail Changes, No Pruritus, No Rash, No Skin Lesion Changes, No Other, No Acne Physical Exam Physical Exam Physical Exam Physical Exam Constitutional: Well developed, well nourished, no distress, non-toxic appe arance. [] HENT: Normocephalic, atraumatic. Eyes: PERRLA, EOMI, conjunctiva normal, no discharge. [] Neck: Normal range of motion, no tenderness, supple, no stridor. [] Cardiovascular: Tachycardia, no murmur [] Lungs & Thorax: Bilateral breath sounds clear to auscultation [] Abdomen: Bowel sounds normal, soft, no tenderness, no masses, no pulsatile masses. [] Skin: Warm, dry, no erythema, no rash. [] Back: No tenderness, no CVA tenderness. [] Extremities: No tenderness, no cyanosis, no clubbing, ROM intact, no edema. [] Neurologic: Alert and oriented X 3, no focal deficits noted. [] Psychologic: Affect normal, judgment normal, mood normal. [] General: Alert, Oriented X3, Cooperative, No acute distress HEENT: Atraumatic, EOMI, Mucous membr. moist/pink Lungs: Clear to auscultation Heart: RRR Breasts: Not examined Abdomen: Normal bowel sounds, Soft, No tenderness Rectal Exam: not examined PELVIC: Examination not indicated Extremities: No clubbing, No cyanosis, No edema Skin: No significant lesion Neuro: Normal speech, Cranial nerves 3-12 NL Psych/Mental Status: Mental status NL, Mood NL Vitals Vitals Vital Signs Date Time Temp Pulse Resp B/P (MAP) Pulse Ox O2 Delivery O2 Flow Rate FiO2 12/10/19 07:00 97.8 88 16 161/95 (117) 96 Room Air 97.8 Labs Labs Laboratory Tests Test 12/09/19 20:35 White Blood Count 15.9 x10^3/uL (4.0-11.0) Red Blood Count 6.17 x10^6/uL (4.30-5.70) Hemoglobin 18.0 g/dL (13.0-17.5) Hematocrit 51.9 % (39.0-53.0) Mean Corpuscular Volume 84 fL (79-100) Mean Corpuscular Hemoglobin 29 pg (25-35) Mean Corpuscular Hemoglobin Concent 35 g/dL (31-37) Red Cell Distribution Width 13.5 % (11.5-14.5) Platelet Count 428 x10^3/uL (140-400) Neutrophils (%) (Auto) 74 % (31-73) Lymphocytes (%) (Auto) 15 % (24-48) Monocytes (%) (Auto) 10 % (0-9) Eosinophils (%) (Auto) 0 % (0-3) Basophils (%) (Auto) 1 % (0-3) Neutrophils # (Auto) 11.7 x10^3/uL (1.8-7.7) Lymphocytes # (Auto) 2.4 x10^3/uL (1.0-4.8) Monocytes # (Auto) 1.7 x10^3/uL (0.0-1.1) Eosinophils # (Auto) 0.0 x10^3/uL (0.0-0.7) Basophils # (Auto) 0.1 x10^3/uL (0.0-0.2) Sodium Level 134 mmol/L (136-145) Potassium Level 4.0 mmol/L (3.5-5.1) Chloride Level 95 mmol/L (98-107) Carbon Dioxide Level 29 mmol/L (21-32) Anion Gap 10 (6-14) Blood Urea Nitrogen 36 mg/dL (8-26) Creatinine 2.2 mg/dL (0.7-1.3) Estimated GFR (Cockcroft-Gault) 33.3 BUN/Creatinine Ratio 16 (6-20) Glucose Level 102 mg/dL (70-99) Calcium Level 10.9 mg/dL (8.5-10.1) Magnesium Level 2.5 mg/dL (1.8-2.4) Total Bilirubin 0.6 mg/dL (0.2-1.0) Aspartate Amino Transf (AST/SGOT) 21 U/L (15-37) Alanine Aminotransferase (ALT/SGPT) 62 U/L (16-63) Alkaline Phosphatase 187 U/L (46-116) Troponin I Quantitative < 0.017 ng/mL (0.000-0.055) EA-Agr-M-Type Natriuretic Peptide 340 pg/mL (0-124) Total Protein 8.5 g/dL (6.4-8.2) Albumin 3.4 g/dL (3.4-5.0) Albumin/Globulin Ratio 0.7 (1.0-1.7) Laboratory Tests Test 12/09/19 20:35 White Blood Count 15.9 x10^3/uL (4.0-11.0) Red Blood Count 6.17 x10^6/uL (4.30-5.70) Hemoglobin 18.0 g/dL (13.0-17.5) Hematocrit 51.9 % (39.0-53.0) Mean Corpuscular Volume 84 fL (79-100) Mean Corpuscular Hemoglobin 29 pg (25-35) Mean Corpuscular Hemoglobin Concent 35 g/dL (31-37) Red Cell Distribution Width 13.5 % (11.5-14.5) Platelet Count 428 x10^3/uL (140-400) Neutrophils (%) (Auto) 74 % (31-73) Lymphocytes (%) (Auto) 15 % (24-48) Monocytes (%) (Auto) 10 % (0-9) Eosinophils (%) (Auto) 0 % (0-3) Basophils (%) (Auto) 1 % (0-3) Neutrophils # (Auto) 11.7 x10^3/uL (1.8-7.7) Lymphocytes # (Auto) 2.4 x10^3/uL (1.0-4.8) Monocytes # (Auto) 1.7 x10^3/uL (0.0-1.1) Eosinophils # (Auto) 0.0 x10^3/uL (0.0-0.7) Basophils # (Auto) 0.1 x10^3/uL (0.0-0.2) Sodium Level 134 mmol/L (136-145) Potassium Level 4.0 mmol/L (3.5-5.1) Chloride Level 95 mmol/L (98-107) Carbon Dioxide Level 29 mmol/L (21-32) Anion Gap 10 (6-14) Blood Urea Nitrogen 36 mg/dL (8-26) Creatinine 2.2 mg/dL (0.7-1.3) Estimated GFR (Cockcroft-Gault) 33.3 BUN/Creatinine Ratio 16 (6-20) Glucose Level 102 mg/dL (70-99) Calcium Level 10.9 mg/dL (8.5-10.1) Magnesium Level 2.5 mg/dL (1.8-2.4) Total Bilirubin 0.6 mg/dL (0.2-1.0) Aspartate Amino Transf (AST/SGOT) 21 U/L (15-37) Alanine Aminotransferase (ALT/SGPT) 62 U/L (16-63) Alkaline Phosphatase 187 U/L (46-116) Troponin I Quantitative < 0.017 ng/mL (0.000-0.055) BC-Ama-E-Type Natriuretic Peptide 340 pg/mL (0-124) Total Protein 8.5 g/dL (6.4-8.2) Albumin 3.4 g/dL (3.4-5.0) Albumin/Globulin Ratio 0.7 (1.0-1.7) Images Images Limits sonography of the pelvis Clinical indications: Inguinal lymphadenopathy. COMPARISON: CT study dated June 28, 2019. FINDINGS: High-resolution sonography of the groin was performed on both sides. On the right side, there is an 11 mm lymph node which demonstrates normal lymph node sonographic architecture. On left side, there is a 30 mm lymph node demonstrating normal lymph node sonographic architecture. These are unchanged in size from the prior CT study. IMPRESSION: Stable bilateral inguinal lymph nodes. Electronically signed by: Christian John MD (12/10/2019 3:11 PM) [facility] DICTATED and SIGNED BY: CHRISTIAN JOHN MD DATE: 12/10/19 1511 EXAM: Oneill scale and color Doppler renal artery sonogram. HISTORY: Hypertension. TECHNIQUE: Oneill scale and color Doppler sonographic imaging of the kidneys and renal arteries with spectral waveform analysis was performed. COMPARISON: None. FINDINGS: The kidneys are normal in size. No solid or cystic renal lesion is seen. There is no hydronephrosis. The urinary bladder is unremarkable. There is an upper limits of normal peak systolic velocity within the mid right renal artery measuring 179 cm/s. There is a mildly elevated peak systolic velocity within the distal left vertebral artery measuring 187 cm/s. There are normal renal artery to aorta velocity ratios. The renal veins are patent. IMPRESSION: 1. Mildly elevated peak systolic velocity within the distal left renal artery, suggesting greater than 60 percent stenosis. There is an upper limits of normal peak systolic velocity within the mid right renal artery suggesting near 60 percent stenosis. 2. Unremarkable grayscale evaluation of the kidneys. Electronically signed by: Lacy Steele MD (12/09/2019 12:39 PM) [id number] DICTATED and SIGNED BY: ALCY STEELE MD DATE: 12/09/[address] STUDY OF THE ABDOMEN AND PELVIS WITHOUT CONTRAST CLINICAL INDICATIONS: Right groin pain. Right flank pain. Right lower quadrant pain. TECHNIQUE: Noncontrast helical CT scanning of the abdomen and pelvis was performed. Without contrast, the sensitivity to detect organ pathology and GI tract pathology is decreased. PQRS compliance Statement One or more of the following individualized dose reduction techniques were utilized for this study: 1. Automated exposure control 2. Adjustment of the mA and/or kV according to patient size 3. Use of iterative reconstruction technique COMPARISON: None available. FINDINGS: The liver and spleen and pancreas are homogeneous in appearance on this noncontrast study. The gallbladder is normal and no extra hepatic biliary ductal dilatation is seen. No adrenal mass is evident. No hydronephrosis or hydroureter or ureteral stone or renal stone is seen. No renal mass is seen on either side on this noncontrast study. No focal aneurysmal dilatation of the abdominal aorta is seen. No enlarged abdominal lymphadenopathy is evident. Bilateral inguinal lymph nodes are seen. The largest lymph node is seen on the left side. It measures 3.2 cm in vertical dimension. No inguinal hernia or anterior abdominal wall hernia is seen. The urinary bladder is not distended. The appendix and terminal ileum are unremarkable. No obstructive bowel pattern is evident. Mild fecal retention is seen. The stomach is not distended. No free air or free fluid or mesenteric edema is seen. Minimal grade 1 anterolisthesis of L5-S1 is seen. There is spondylolysis of the right side of L5. No spondylolysis is seen on the left side of L5. No compression fracture of the lumbar spine is seen. No lytic process is evident. No lung base consolidation is evident. IMPRESSION: No acute abnormality of the abdomen or pelvis. Grade 1 anterolisthesis of L5-S1. 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 Bilateral inguinal lymph nodes. Clinical follow-up with any palpable lymph nodes is recommended. : Electronically signed by: Christian John MD (06/28/2019 2:49 PM) [facility] EXAM: CHEST ONE VIEW. HISTORY: Syncope. COMPARISON: 12/07/2019. FINDINGS: A frontal view of the chest is obtained. There are no confluent infiltrates. There is no pneumothorax or pleural effusion. The heart is not enlarged. IMPRESSION: 1. No confluent infiltrates. Electronically signed by: Jana Munoz MD (12/10/2019 12:15 AM) [id number] DICTATED and SIGNED BY: ELA MUNOZ MD DATE: 12/10/19 0015 VTE Prophylaxis Ordered VTE Prophylaxis Devices: Yes VTE Pharmacological Prophylaxi: Yes Assessment/Plan Assessment/Plan Impression: IVETT (acute kidney injury) likely due to ARB AND hypovolemia with hemoconcentration morbid obesity Syncope Dehydration TOBACCO ABUSE DISORDER recent Hypertensive urgency - seen by cardiology, placed on CCB, BB, ARB/HCTZ with improvement, bp still suboptimal control Elevated peak systolic velocity within the distal left renal artery, suggest ing greater than 60 percent stenosis. There is an upper limits of normal peak systolic velocity within the mid right renal artery suggesting near 60 percent stenosis. Headache - CT HEAD Minimal patchy hypoattenuation in the bifrontal white matter. Nonspecific, could indicate small vessel ischemic disease, demyelination or vasculitis. Could further evaluate with outpatient MRI brain, as indicated. Hypertensive encephalopathy. Improving. Hyperglycemia - non-diabetic Medication compliance difficulties - DOMINGUEZ cough, transitioned to ARB/HCTZ Moderate protein calorie malnutrition - Low albumin THC ABUSE - was counseled by my partner to reduce use Smoker - counseled, counseled on weight loss, diet, exercise 2018 INGUINAL lymph node is seen on the left side. It measures 3.2 cm in vertical dimension. Stable bilateral inguinal lymph nodes. 12/10 US ADMITTED iv fluid support follow renal fx bp control orthostatics bp/ pulse dvt prophylaxis stop THC USE us inguinal regions inc coreg to 25 mg po bid NEPHROLOGY CONSULT cardiology consult d/c ARB 74 min pt exam, chart review, > 50% of time spent with exam, chart review, pt care coordination COURTNEY KAT MD Dec 10, 2019 10:28
[2019-12-10] MEDS ORDERED: CARVEDILOL 12.5 MG TABLET. PO SCH (11:00)
[2019-12-10] MEDS: amLODIPine BESYLATE 10 MG TABLET PO SCH (11:45)
--- NOTE | 2019-12-10 13:18 | PDOC ---
PROGRESS NOTES Subjective Subjective Patient seen and examined Objective Objective Vital Signs Date Time Temp Pulse Resp B/P (MAP) Pulse Ox O2 Delivery O2 Flow Rate FiO2 12/10/19 11:45 90 165/106 12/10/19 11:00 97.5 16 98 Room Air 97.5 Intake and Output 12/10/19 07:00 Intake Total 300 ml Output Total 100 ml Balance 200 ml Intake Oral 300 ml Emesis 100 ml Physical Exam Abdomen: Normal bowel sounds Heart: Regular rate General: No acute distress Lungs: Clear to auscultation Assessment Assessment Problems Medical Problems: (1) Dehydration Status: Acute Hypertensive urgency. The patient was discharged yesterday but developed episodes of lightheadedness and a brief episode of syncope while seated. He denies any chest pain or shortness of breath. Blood pressure is moderately elevated today and he has been restarted on Norvasc and Coreg. The patient's ARB has been held. We'll continue to monitor blood pressure and lab. History of tobacco abuse. Discussed with the patient. HLD. LDL of 156, HDL of 29. On lipitor. Episode of syncope. Uncertain etiology. Continue to monitor rhythm. Creatinine elevated 2.2. Potassium 4.0 magnesium 2.5. Patient is being treated with fluids. ARB is held. We'll continue to monitor lab. Discussed with the patient. Comment Review of Relevant I have reviewed the following items keily (where applicable) has been applied. Labs Laboratory Tests Test 12/09/19 20:35 White Blood Count 15.9 x10^3/uL (4.0-11.0) Red Blood Count 6.17 x10^6/uL (4.30-5.70) Hemoglobin 18.0 g/dL (13.0-17.5) Hematocrit 51.9 % (39.0-53.0) Mean Corpuscular Volume 84 fL (79-100) Mean Corpuscular Hemoglobin 29 pg (25-35) Mean Corpuscular Hemoglobin Concent 35 g/dL (31-37) Red Cell Distribution Width 13.5 % (11.5-14.5) Platelet Count 428 x10^3/uL (140-400) Neutrophils (%) (Auto) 74 % (31-73) Lymphocytes (%) (Auto) 15 % (24-48) Monocytes (%) (Auto) 10 % (0-9) Eosinophils (%) (Auto) 0 % (0-3) Basophils (%) (Auto) 1 % (0-3) Neutrophils # (Auto) 11.7 x10^3/uL (1.8-7.7) Lymphocytes # (Auto) 2.4 x10^3/uL (1.0-4.8) Monocytes # (Auto) 1.7 x10^3/uL (0.0-1.1) Eosinophils # (Auto) 0.0 x10^3/uL (0.0-0.7) Basophils # (Auto) 0.1 x10^3/uL (0.0-0.2) Sodium Level 134 mmol/L (136-145) Potassium Level 4.0 mmol/L (3.5-5.1) Chloride Level 95 mmol/L (98-107) Carbon Dioxide Level 29 mmol/L (21-32) Anion Gap 10 (6-14) Blood Urea Nitrogen 36 mg/dL (8-26) Creatinine 2.2 mg/dL (0.7-1.3) Estimated GFR (Cockcroft-Gault) 33.3 BUN/Creatinine Ratio 16 (6-20) Glucose Level 102 mg/dL (70-99) Calcium Level 10.9 mg/dL (8.5-10.1) Magnesium Level 2.5 mg/dL (1.8-2.4) Total Bilirubin 0.6 mg/dL (0.2-1.0) Aspartate Amino Transf (AST/SGOT) 21 U/L (15-37) Alanine Aminotransferase (ALT/SGPT) 62 U/L (16-63) Alkaline Phosphatase 187 U/L (46-116) Troponin I Quantitative < 0.017 ng/mL (0.000-0.055) YB-Llf-Q-Type Natriuretic Peptide 340 pg/mL (0-124) Total Protein 8.5 g/dL (6.4-8.2) Albumin 3.4 g/dL (3.4-5.0) Albumin/Globulin Ratio 0.7 (1.0-1.7) Laboratory Tests Test 12/09/19 20:35 White Blood Count 15.9 x10^3/uL (4.0-11.0) Red Blood Count 6.17 x10^6/uL (4.30-5.70) Hemoglobin 18.0 g/dL (13.0-17.5) Hematocrit 51.9 % (39.0-53.0) Mean Corpuscular Volume 84 fL (79-100) Mean Corpuscular Hemoglobin 29 pg (25-35) Mean Corpuscular Hemoglobin Concent 35 g/dL (31-37) Red Cell Distribution Width 13.5 % (11.5-14.5) Platelet Count 428 x10^3/uL (140-400) Neutrophils (%) (Auto) 74 % (31-73) Lymphocytes (%) (Auto) 15 % (24-48) Monocytes (%) (Auto) 10 % (0-9) Eosinophils (%) (Auto) 0 % (0-3) Basophils (%) (Auto) 1 % (0-3) Neutrophils # (Auto) 11.7 x10^3/uL (1.8-7.7) Lymphocytes # (Auto) 2.4 x10^3/uL (1.0-4.8) Monocytes # (Auto) 1.7 x10^3/uL (0.0-1.1) Eosinophils # (Auto) 0.0 x10^3/uL (0.0-0.7) Basophils # (Auto) 0.1 x10^3/uL (0.0-0.2) Sodium Level 134 mmol/L (136-145) Potassium Level 4.0 mmol/L (3.5-5.1) Chloride Level 95 mmol/L (98-107) Carbon Dioxide Level 29 mmol/L (21-32) Anion Gap 10 (6-14) Blood Urea Nitrogen 36 mg/dL (8-26) Creatinine 2.2 mg/dL (0.7-1.3) Estimated GFR (Cockcroft-Gault) 33.3 BUN/Creatinine Ratio 16 (6-20) Glucose Level 102 mg/dL (70-99) Calcium Level 10.9 mg/dL (8.5-10.1) Magnesium Level 2.5 mg/dL (1.8-2.4) Total Bilirubin 0.6 mg/dL (0.2-1.0) Aspartate Amino Transf (AST/SGOT) 21 U/L (15-37) Alanine Aminotransferase (ALT/SGPT) 62 U/L (16-63) Alkaline Phosphatase 187 U/L (46-116) Troponin I Quantitative < 0.017 ng/mL (0.000-0.055) VA-Txo-Q-Type Natriuretic Peptide 340 pg/mL (0-124) Total Protein 8.5 g/dL (6.4-8.2) Albumin 3.4 g/dL (3.4-5.0) Albumin/Globulin Ratio 0.7 (1.0-1.7) Medications Current Medications Sodium Chloride 1,000 ml @ 1,000 mls/hr 1X ONCE IV Last administered on 12/10/19at 00:20; Start 12/10/19 at 00:15; Stop 12/10/19 at 01:14; Status DC Sodium Chloride 1,000 ml @ 125 mls/hr Q8H IV Last administered on 12/10/19at 11:46; Start 12/10/19 at 00:30; Stop 12/11/19 at 00:29 Amlodipine Besylate (Norvasc) 10 mg DAILY PO Last administered on 12/10/19at 11:45; Start 12/10/19 at 11:00 Atorvastatin Calcium (Lipitor) 20 mg QHS PO ; Start 12/10/19 at 21:00 Carvedilol (Coreg) 12.5 mg BIDWMEALS PO Last administered on 12/10/19at 11:45; Start 12/10/19 at 11:00; Stop 12/10/19 at 13:11; Status DC Carvedilol (Coreg) 25 mg BIDWMEALS PO ; Start 12/10/19 at 17:00; Status UNV Active Scripts Active Hyzaar 100-25 Tablet (Losartan/Hydrochlorothiazide) 1 Each Tablet 1 Tab PO DAILY 90 Days Amlodipine Besylate 10 Mg Tablet 10 Mg PO DAILY 90 Days Carvedilol (Carvedilol) 12.5 Mg Tablet 12.5 Mg PO BIDWMEALS 90 Days Atorvastatin Calcium 20 Mg Tablet 20 Mg PO QHS 90 Days Vitals/I & O Vital Sign - Last 24 Hours 12/09/19 12/09/19 12/09/19 12/09/19 22:25 22:50 23:15 23:45 Temp 98.2 98.2 Pulse 104 104 108 106 Resp 18 B/P (MAP) 148/80 (102) 132/76 (94) 147/89 (108) 143/74 (97) Pulse Ox 95 98 100 100 O2 Delivery Room Air Room Air Room Air Room Air 12/10/19 12/10/19 12/10/19 12/10/19 00:07 00:48 03:12 07:00 Temp 98.6 98.5 97.8 98.6 98.5 97.8 Pulse 106 101 97 88 Resp 16 16 16 B/P (MAP) 136/82 (100) 130/87 (101) 161/96 (117) 161/95 (117) Pulse Ox 99 96 96 96 O2 Delivery Room Air Room Air Room Air Room Air 12/10/19 12/10/19 12/10/19 12/10/19 08:00 11:00 11:05 11:10 Temp 97.5 97.5 Pulse 89 95 95 Resp 16 B/P (MAP) 174/95 (121) 174/103 (126) 165/106 (125) Pulse Ox 98 O2 Delivery Room Air Room Air 12/10/19 12/10/19 11:45 11:45 Pulse 90 90 B/P (MAP) 165/101 165/106 Intake and Output 12/09/19 12/09/19 12/10/19 15:00 23:00 07:00 Intake Total 300 ml Output Total 100 ml Balance 200 ml MALOU BRAXTON MD Dec 10, 2019 13:17
--- NOTE | 2019-12-10 15:14 | RAD ---
Limits sonography of the pelvis Clinical indications: Inguinal lymphadenopathy. COMPARISON: CT study dated June 28, 2019. FINDINGS: High-resolution sonography of the groin was performed on both sides. On the right side, there is an 11 mm lymph node which demonstrates normal lymph node sonographic architecture. On left side, there is a 30 mm lymph node demonstrating normal lymph node sonographic architecture. These are unchanged in size from the prior CT study. IMPRESSION: Stable bilateral inguinal lymph nodes. Electronically signed by: Juan Miguel John MD (12/10/2019 3:11 PM) [facility]
[2019-12-10] MEDS: CARVEDILOL 12.5 MG TABLET. PO SCH (17:33)
[2019-12-10] MEDS ORDERED: ALBUTEROL SULFATE 2.5 MG/3 ML NEBU. NEB PRN (21:30)
[2019-12-10] MEDS ORDERED: ONDANSETRON PF 4 MG/2 ML VIAL. IV PRN (21:30)
[2019-12-10] MEDS ORDERED: 0.9 % SODIUM CHLORIDE 10 ML DISP.SYRIN. IV PRN (21:30)
[2019-12-10] MEDS ORDERED: guaiFENesin ORAL 200 MG/10 ML LIQUID. PO PRN (21:30)
[2019-12-10] MEDS ORDERED: cloNIDine HCL 0.1 MG TABLET PO PRN (21:30)
[2019-12-10] MEDS ORDERED: DOCUSATE SODIUM 100 MG CAPSULE. PO PRN (21:30)
[2019-12-10] MEDS ORDERED: LORazepam 0.5 MG TABLET PO PRN (21:30)
[2019-12-10] MEDS ORDERED: MAG HYDROX/ALUMINUM HYD/SIMETH 30 ML ORAL.SUSP PO PRN (21:30)
[2019-12-10] MEDS ORDERED: ACETAMINOPHEN 325 MG TABLET. PO PRN (21:30)
[2019-12-10] MEDS: ATORVASTATIN CALCIUM 20 MG TABLET PO SCH (21:32)
[2019-12-10] MEDS: ENOXAPARIN 40 MG/0.4 ML SYRINGE. SQ SCH (22:13)
[2019-12-11 03:00] VITALS: BP 178/102
[2019-12-11 07:00] VITALS: BP 193/116
--- NOTE | 2019-12-11 08:59 | PDOC ---
PROGRESS NOTES History of Present Illness History of Present Illness VTE Prophylaxis Ordered VTE Prophylaxis Devices: Yes VTE Pharmacological Prophylaxi: Yes Assessment/Plan Assessment/Plan Impression: IVETT (acute kidney injury) likely due to ARB AND hypovolemia with hemoconcentration morbid obesity UNCONTROLLED HYPERTENSION elevated peak systolic velocity within the distal left renal artery, suggesting greater than 60 percent stenosis. There is an upper limits of normal peak systolic velocity within the mid right renal artery suggesting near 60 percent stenosis. Syncope Dehydration TOBACCO ABUSE DISORDER recent Hypertensive urgency - seen by cardiology, placed on CCB, BB, ARB/HCTZ with improvement, bp still suboptimal control Elevated peak systolic velocity within the distal left renal artery, suggesting greater than 60 percent stenosis. There is an upper limits of normal peak systolic velocity within the mid right renal artery suggesting near 60 percent stenosis. Headache - CT HEAD Minimal patchy hypoattenuation in the bifrontal white matter. Nonspecific, could indicate small vessel ischemic disease, demyelination or vasculitis. Could further evaluate with outpatient MRI brain, as indicated. Hypertensive encephalopathy. Improving. Hyperglycemia - non-diabetic Medication compliance difficulties - DOMINGUEZ cough, transitioned to ARB/HCTZ Moderate protein calorie malnutrition - Low albumin THC ABUSE - was counseled by my partner to reduce use Smoker - counseled, counseled on weight loss, diet, exercise 2019 INGUINAL lymph node is seen on the left side. It measures 3.2 cm in vertical dimension. Stable bilateral inguinal lymph nodes. 12/10 US ADMITTED iv fluid support follow renal fx bp control orthostatics bp/ pulse dvt prophylaxis stop THC USE us inguinal regions inc coreg to 25 mg po bid NEPHROLOGY CONSULT cardiology consult d/c ARB 36 min pt exam, chart review, > 50% of time spent with exam, chart review, pt care coordination Vitals Vitals Vital Signs Date Time Temp Pulse Resp B/P (MAP) Pulse Ox O2 Delivery O2 Flow Rate FiO2 12/11/19 03:03 182/122 12/11/19 03:00 97.8 91 95 Room Air 97.8 12/10/19 23:59 16 Physical Exam General: Alert, Oriented X3, Cooperative, No acute distress Heart: Regular rate, Normal S1 Lungs: Clear Abdomen: Normal bowel sounds Extremities: No clubbing, No cyanosis, No edema Skin: No significant lesion Labs LABS EXAM: Oneill scale and color Doppler renal artery sonogram. HISTORY: Hypertension. TECHNIQUE: Oneill scale and color Doppler sonographic imaging of the kidneys and renal arteries with spectral waveform analysis was performed. COMPARISON: None. FINDINGS: The kidneys are normal in size. No solid or cystic renal lesion is seen. There is no hydronephrosis. The urinary bladder is unremarkable. There is an upper limits of normal peak systolic velocity within the mid right renal artery measuring 179 cm/s. There is a mildly elevated peak systolic velocity within the distal left vertebral artery measuring 187 cm/s. There are normal renal artery to aorta velocity ratios. The renal veins are patent. IMPRESSION: 1. Mildly elevated peak systolic velocity within the distal left renal artery, suggesting greater than 60 percent stenosis. There is an upper limits of normal peak systolic velocity within the mid right renal artery suggesting near 60 percent stenosis. 2. Unremarkable grayscale evaluation of the kidneys. Electronically signed by: Lacy Rae MD (12/09/2019 12:39 PM) [id number] DICTATED and SIGNED BY: LACY RAE MD DATE: 12/09/19 1239 Assessment and Plan Assessmemt and Plan Problems Medical Problems: (1) Dehydration Status: Acute Comment Review of Relevant I have reviewed the following items keily (where applicable) has been applied. Labs Laboratory Tests Test 12/09/19 20:35 White Blood Count 15.9 x10^3/uL (4.0-11.0) Red Blood Count 6.17 x10^6/uL (4.30-5.70) Hemoglobin 18.0 g/dL (13.0-17.5) Hematocrit 51.9 % (39.0-53.0) Mean Corpuscular Volume 84 fL (79-100) Mean Corpuscular Hemoglobin 29 pg (25-35) Mean Corpuscular Hemoglobin Concent 35 g/dL (31-37) Red Cell Distribution Width 13.5 % (11.5-14.5) Platelet Count 428 x10^3/uL (140-400) Neutrophils (%) (Auto) 74 % (31-73) Lymphocytes (%) (Auto) 15 % (24-48) Monocytes (%) (Auto) 10 % (0-9) Eosinophils (%) (Auto) 0 % (0-3) Basophils (%) (Auto) 1 % (0-3) Neutrophils # (Auto) 11.7 x10^3/uL (1.8-7.7) Lymphocytes # (Auto) 2.4 x10^3/uL (1.0-4.8) Monocytes # (Auto) 1.7 x10^3/uL (0.0-1.1) Eosinophils # (Auto) 0.0 x10^3/uL (0.0-0.7) Basophils # (Auto) 0.1 x10^3/uL (0.0-0.2) Sodium Level 134 mmol/L (136-145) Potassium Level 4.0 mmol/L (3.5-5.1) Chloride Level 95 mmol/L (98-107) Carbon Dioxide Level 29 mmol/L (21-32) Anion Gap 10 (6-14) Blood Urea Nitrogen 36 mg/dL (8-26) Creatinine 2.2 mg/dL (0.7-1.3) Estimated GFR (Cockcroft-Gault) 33.3 BUN/Creatinine Ratio 16 (6-20) Glucose Level 102 mg/dL (70-99) Calcium Level 10.9 mg/dL (8.5-10.1) Magnesium Level 2.5 mg/dL (1.8-2.4) Total Bilirubin 0.6 mg/dL (0.2-1.0) Aspartate Amino Transf (AST/SGOT) 21 U/L (15-37) Alanine Aminotransferase (ALT/SGPT) 62 U/L (16-63) Alkaline Phosphatase 187 U/L (46-116) Troponin I Quantitative < 0.017 ng/mL (0.000-0.055) FT-[id number]-[id number]-Type Natriuretic Peptide 340 pg/mL (0-124) Total Protein 8.5 g/dL (6.4-8.2) Albumin 3.4 g/dL (3.4-5.0) Albumin/Globulin Ratio 0.7 (1.0-1.7) Medications Current Medications Sodium Chloride 1,000 ml @ 1,000 mls/hr 1X ONCE IV Last administered on 12/10/19at 00:20; Start 12/10/19 at 00:15; Stop 12/10/19 at 01:14; Status DC Sodium Chloride 1,000 ml @ 125 mls/hr Q8H IV Last administered on 12/10/19at 16:30; Start 12/10/19 at 00:30; Stop 12/11/19 at 00:29; Status DC Amlodipine Besylate (Norvasc) 10 mg DAILY PO Last administered on 12/10/19at 11:45; Start 12/10/19 at 11:00 Atorvastatin Calcium (Lipitor) 20 mg QHS PO Last administered on 12/10/19at 21:32; Start 12/10/19 at 21:00 Carvedilol (Coreg) 12.5 mg BIDWMEALS PO Last administered on 12/10/19at 11:45; Start 12/10/19 at 11:00; Stop 12/10/19 at 13:11; Status DC Carvedilol (Coreg) 25 mg BIDWMEALS PO Last administered on 12/10/19at 17:33; Start 12/10/19 at 17:00 Sodium Chloride (Normal Saline Flush) 3 ml QSHIFT PRN IV AFTER MEDS AND BLOOD DRAWS; Start 12/10/19 at 21:30 Ondansetron HCl (Zofran) 4 mg PRN Q4HRS PRN IV NAUSEA/VOMITING; Start 12/10/19 at 21:30 Acetaminophen (Tylenol) 650 mg PRN Q4HRS PRN PO TEMP OVER 100.4F OR MILD PAIN; Start 12/10/19 at 21:30 Al Hydroxide/Mg Hydroxide (Mylanta Plus Xs) 30 ml PRN DAILY PRN PO HEARTBURN / GAS; Start 12/10/19 at 21:30 Clonidine HCl (Catapres) 0.1 mg PRN Q6HRS PRN PO SBP>160 OR DBP>90 Last administered on 12/11/19at 03:03; Start 12/10/19 at 21:30 Docusate Sodium (Colace) 100 mg PRN BID PRN PO CONSTIPATION; Start 12/10/19 at 21:30 Albuterol Sulfate (Ventolin Neb Soln) 2.5 mg PRN Q4HRS PRN NEB SHORTNESS OF BREATH; Start 12/10/19 at 21:30 Guaifenesin (Robitussin) 200 mg PRN Q4HRS PRN PO COUGH; Start 12/10/19 at 21:30 Lorazepam (Ativan) 0.5 mg PRN Q4HRS PRN PO ANXIETY / AGITATION; Start 12/10/19 at 21:30 Enoxaparin Sodium (Lovenox 40mg Syringe) 40 mg Q24H SQ Last administered on 12/10/19at 22:13; Start 12/10/19 at 22:00 Active Scripts Active Hyzaar 100-25 Tablet (Losartan/Hydrochlorothiazide) 1 Each Tablet 1 Tab PO DAILY 90 Days Amlodipine Besylate 10 Mg Tablet 10 Mg PO DAILY 90 Days Carvedilol (Carvedilol) 12.5 Mg Tablet 12.5 Mg PO BIDWMEALS 90 Days Atorvastatin Calcium 20 Mg Tablet 20 Mg PO QHS 90 Days Vitals/I & O Vital Sign - Last 24 Hours 12/10/19 12/10/19 12/10/19 12/10/19 11:00 11:05 11:10 11:45 Temp 97.5 97.5 Pulse 89 95 95 90 Resp 16 B/P (MAP) 174/95 (121) 174/103 (126) 165/106 (125) 165/101 Pulse Ox 98 O2 Delivery Room Air 12/10/19 12/10/19 12/10/19 12/10/19 11:45 14:15 17:33 19:45 Pulse 90 83 83 B/P (MAP) 165/106 166/98 (120) 166/98 O2 Delivery Room Air 12/10/19 12/10/19 12/11/19 12/11/19 19:59 23:59 03:00 03:03 Temp 97.8 98.3 97.8 97.8 98.3 97.8 Pulse 87 87 91 Resp 18 16 B/P (MAP) 158/101 (120) 159/95 (116) 178/102 (127) 182/122 Pulse Ox 99 98 95 O2 Delivery Room Air Room Air Room Air Intake and Output 12/10/19 12/10/19 12/11/19 15:00 23:00 07:00 Intake Total 350 ml Output Total 850 ml 300 ml 925 ml Balance -850 ml -300 ml -575 ml COURTNEY KAT MD Dec 11, 2019 08:59
[2019-12-11] MEDS: amLODIPine BESYLATE 10 MG TABLET PO SCH (09:45)
[2019-12-11] MEDS: CARVEDILOL 12.5 MG TABLET. PO SCH ×2 (09:46→16:58)
[2019-12-11 10:00] LABS: BASO # 0.1 x10^3/uL (0.0-0.2); BASO % 1 % (0-3); EOS # 0.1 x10^3/uL (0.0-0.7); EOS % 1 % (0-3); HEMATOCRIT 42.5 % (39.0-53.0); HEMOGLOBIN 14.4 g/dL (13.0-17.5); LYMPH # 2.5 x10^3/uL (1.0-4.8); LYMPH % 24 % (24-48); MEAN CORPUSCULAR HEMOGLOBIN 28 pg (25-35); MEAN CORPUSCULAR HGB CONC 34 g/dL (31-37); MEAN CORPUSCULAR VOLUME 84 fL (79-100); MONO % 9 % (0-9); NEUT # 6.8 x10^3/uL (1.8-7.7); NEUT % 65 % (31-73); PLATELET COUNT 408 x10^3/uL (140-400); RED BLOOD COUNT 5.06 x10^6/uL (4.30-5.70); RED CELL DISTRIBUTION WIDTH 13.2 % (11.5-14.5); WHITE BLOOD COUNT 10.4 x10^3/uL (4.0-11.0)
[2019-12-11 10:08] LABS: CALCIUM 8.9 mg/dL (8.5-10.1); GFR 82.8; POTASSIUM 3.6 mmol/L (3.5-5.1)
[2019-12-11 11:00] VITALS: BP 170/101
[2019-12-11 11:08] LABS: BILIRUBIN,URINE NEGATIVE (NEG); CLARITY,URINE CLEAR; COLOR,URINE YELLOW; NITRITE,URINE NEGATIVE (NEG); PH,URINE 6.5; PROTEIN,URINE NEGATIVE (NEG-TRACE)
--- NOTE | 2019-12-11 11:18 | NUR ---
SS following for discharge planning. SS reviewed pt chart. Pt is self pay pt. HCFS following for self pay status. Pt is from home and is currently on room air. SS will continue to follow for discharge planning.
[2019-12-11 11:38] LABS: SQUAMOUS EPITHELIAL CELL,UR OCC /LPF
[2019-12-11 11:39] LABS: BACTERIA,URINE 0 /HPF (0-FEW); RBC,URINE OCC /HPF (0-2); WBC,URINE 0 /HPF (0-4)
--- NOTE | 2019-12-11 12:02 | PDOC2 ---
CONSULT Date of Consult Date of Consult DATE: 12/11/19 TIME: 11:41 Reason for Consult Reason for Consult: IVETT Source Source: Chart review, Patient History of Present Illness Reason for Visit: Patient is a 39 year old CM with history of hypertension and recent hospitalization with hypertensive urgency who presents via EMS with complaint of syncope. Patient was discharged recently after couple days hospitalization with elevation of blood pressure and states he felt dizzy and lightheadedness while walking and then had a syncope with loss of consciousness without seizure activity. Pt reports he was Dx with high BP approx 2-3 years back and was prescribed Lisinopril , he stopped taking it after a few days as he felt short of breath . He did not see a Provider after that until his hospitalization last week He was prescribed Losartan at [facility] but hasnt filled the prescription as he came to the hospita;. He denies any SE with any meds he was given during Hosp last week He starts getting SMITH when his BP are high Patient denies chest pain, shortness of breath, focal neuro deficit, nausea and vomiting, history of syncope. His GM had High BP. No Hx of Renal problems in the family Pt denies any use of Rec drugs (shx + for Marijuana per Primary's note, UDS positive as well) or OTC supplements, Occ takes Aleve . Denies urinary complaints or LE edema Past Medical History Cardiovascular: HTN Past Surgical History Past Surgical History: Tonsillectomy Family History Family History: Hypertension Social History <1 pack per day ALCOHOL: none Drugs: Marijuana Lives: with Family Current Problem List Problem List Problems Medical Problems: (1) Dehydration Status: Acute Current Medications Current Medications Current Medications Sodium Chloride 1,000 ml @ 1,000 mls/hr 1X ONCE IV Last administered on 12/10/19at 00:20; Start 12/10/19 at 00:15; Stop 12/10/19 at 01:14; Status DC Sodium Chloride 1,000 ml @ 125 mls/hr Q8H IV Last administered on 12/10/19at 16:30; Start 12/10/19 at 00:30; Stop 12/11/19 at 00:29; Status DC Amlodipine Besylate (Norvasc) 10 mg DAILY PO Last administered on 12/11/19at 09:45; Start 12/10/19 at 11:00 Atorvastatin Calcium (Lipitor) 20 mg QHS PO Last administered on 12/10/19at 21:32; Start 12/10/19 at 21:00 Carvedilol (Coreg) 12.5 mg BIDWMEALS PO Last administered on 12/10/19at 11:45; Start 12/10/19 at 11:00; Stop 12/10/19 at 13:11; Status DC Carvedilol (Coreg) 25 mg BIDWMEALS PO Last administered on 12/11/19at 09:46; Start 12/10/19 at 17:00 Sodium Chloride (Normal Saline Flush) 3 ml QSHIFT PRN IV AFTER MEDS AND BLOOD DRAWS; Start 12/10/19 at 21:30 Ondansetron HCl (Zofran) 4 mg PRN Q4HRS PRN IV NAUSEA/VOMITING; Start 12/10/19 at 21:30 Acetaminophen (Tylenol) 650 mg PRN Q4HRS PRN PO TEMP OVER 100.4F OR MILD PAIN; Start 12/10/19 at 21:30 Al Hydroxide/Mg Hydroxide (Mylanta Plus Xs) 30 ml PRN DAILY PRN PO HEARTBURN / GAS; Start 12/10/19 at 21:30 Clonidine HCl (Catapres) 0.1 mg PRN Q6HRS PRN PO SBP>160 OR DBP>90 Last administered on 12/11/19at 03:03; Start 12/10/19 at 21:30 Docusate Sodium (Colace) 100 mg PRN BID PRN PO CONSTIPATION; Start 12/10/19 at 21:30 Albuterol Sulfate (Ventolin Neb Soln) 2.5 mg PRN Q4HRS PRN NEB SHORTNESS OF BREATH; Start 12/10/19 at 21:30 Guaifenesin (Robitussin) 200 mg PRN Q4HRS PRN PO COUGH; Start 12/10/19 at 21:30 Lorazepam (Ativan) 0.5 mg PRN Q4HRS PRN PO ANXIETY / AGITATION; Start 12/10/19 at 21:30 Enoxaparin Sodium (Lovenox 40mg Syringe) 40 mg Q24H SQ Last administered on 12/10/19at 22:13; Start 12/10/19 at 22:00 Active Scripts Active Hyzaar 100-25 Tablet (Losartan/Hydrochlorothiazide) 1 Each Tablet 1 Tab PO DAILY 90 Days Amlodipine Besylate 10 Mg Tablet 10 Mg PO DAILY 90 Days Carvedilol (Carvedilol) 12.5 Mg Tablet 12.5 Mg PO BIDWMEALS 90 Days Atorvastatin Calcium 20 Mg Tablet 20 Mg PO QHS 90 Days Allergies Allergies: Coded Allergies: No Known Drug Allergies (Unverified , 12/17/15) ROS Review of System Per HPI Physical Exam Physical Exam General: No acute distress HEENT: Mucous membr. moist/pink Neck Supple Lungs: Clear to auscultation Heart: RRR Abdomen: Normal bowel sounds, Soft, No tenderness Extremities: No clubbing, No cyanosis, No edema Skin: No significant lesion Neuro: Normal speech, Cranial nerves 3-12 NL Psych/Mental Status: Mental status NL, Mood NL No alexis Vital Signs Vital Signs Date Time Temp Pulse Resp B/P (MAP) Pulse Ox O2 Delivery O2 Flow Rate FiO2 12/11/19 09:46 89 193/116 12/11/19 07:00 98.2 20 98 Room Air 98.2 Assessment & Plan IVETT- Vasomotor Resolved , UA unremarkable, Kidneys Unremarkable on US Supportive care, Strict I/O, avoid nephrotoxins, Monitor HTN- Renal duplex Mildly elevated peak systolic velocity within the distal left renal artery, suggesting greater than 60 percent stenosis. There is an upper limits of normal peak systolic velocity within the mid right renal artery suggesting near 60 percent stenosis. Recommend CTA to confirm as well to eval Adrenals unless Cardiology planning intervention Hydrate with IV NS 1ml/kg 12 hrs prior and post Contrast procedure . Defer further management to Cardiology Labs Labs Laboratory Tests Test 12/09/19 20:35 12/11/19 09:45 12/11/19 10:40 White Blood Count 15.9 x10^3/uL (4.0-11.0) 10.4 x10^3/uL (4.0-11.0) Red Blood Count 6.17 x10^6/uL (4.30-5.70) 5.06 x10^6/uL (4.30-5.70) Hemoglobin 18.0 g/dL (13.0-17.5) 14.4 g/dL (13.0-17.5) Hematocrit 51.9 % (39.0-53.0) 42.5 % (39.0-53.0) Mean Corpuscular Volume 84 fL (79-100) 84 fL (79-100) Mean Corpuscular Hemoglobin 29 pg (25-35) 28 pg (25-35) Mean Corpuscular Hemoglobin Concent 35 g/dL (31-37) 34 g/dL (31-37) Red Cell Distribution Width 13.5 % (11.5-14.5) 13.2 % (11.5-14.5) Platelet Count 428 x10^3/uL (140-400) 408 x10^3/uL (140-400) Neutrophils (%) (Auto) 74 % (31-73) 65 % (31-73) Lymphocytes (%) (Auto) 15 % (24-48) 24 % (24-48) Monocytes (%) (Auto) 10 % (0-9) 9 % (0-9) Eosinophils (%) (Auto) 0 % (0-3) 1 % (0-3) Basophils (%) (Auto) 1 % (0-3) 1 % (0-3) Neutrophils # (Auto) 11.7 x10^3/uL (1.8-7.7) 6.8 x10^3/uL (1.8-7.7) Lymphocytes # (Auto) 2.4 x10^3/uL (1.0-4.8) 2.5 x10^3/uL (1.0-4.8) Monocytes # (Auto) 1.7 x10^3/uL (0.0-1.1) 1.0 x10^3/uL (0.0-1.1) Eosinophils # (Auto) 0.0 x10^3/uL (0.0-0.7) 0.1 x10^3/uL (0.0-0.7) Basophils # (Auto) 0.1 x10^3/uL (0.0-0.2) 0.1 x10^3/uL (0.0-0.2) Sodium Level 134 mmol/L (136-145) 136 mmol/L (136-145) Potassium Level 4.0 mmol/L (3.5-5.1) 3.6 mmol/L (3.5-5.1) Chloride Level 95 mmol/L (98-107) 100 mmol/L (98-107) Carbon Dioxide Level 29 mmol/L (21-32) 30 mmol/L (21-32) Anion Gap 10 (6-14) 6 (6-14) Blood Urea Nitrogen 36 mg/dL (8-26) 22 mg/dL (8-26) Creatinine 2.2 mg/dL (0.7-1.3) 1.0 mg/dL (0.7-1.3) Estimated GFR (Cockcroft-Gault) 33.3 82.8 BUN/Creatinine Ratio 16 (6-20) Glucose Level 102 mg/dL (70-99) 124 mg/dL (70-99) Calcium Level 10.9 mg/dL (8.5-10.1) 8.9 mg/dL (8.5-10.1) Magnesium Level 2.5 mg/dL (1.8-2.4) Total Bilirubin 0.6 mg/dL (0.2-1.0) Aspartate Amino Transf (AST/SGOT) 21 U/L (15-37) Alanine Aminotransferase (ALT/SGPT) 62 U/L (16-63) Alkaline Phosphatase 187 U/L (46-116) Troponin I Quantitative < 0.017 ng/mL (0.000-0.055) GK-Kiq-B-Type Natriuretic Peptide 340 pg/mL (0-124) Total Protein 8.5 g/dL (6.4-8.2) Albumin 3.4 g/dL (3.4-5.0) Albumin/Globulin Ratio 0.7 (1.0-1.7) Urine Collection Type Unknown Urine Color Yellow Urine Clarity Clear Urine pH 6.5 Urine Specific [place] 1.015 Urine Protein Negative mg/dL (NEG-TRACE) Urine Glucose (UA) Negative mg/dL (NEG) Urine Ketones (Stick) Negative mg/dL (NEG) Urine Blood Negative (NEG) Urine Nitrite Negative (NEG) Urine Bilirubin Negative (NEG) Urine Urobilinogen Dipstick 1.0 mg/dL (0.2 mg/dL) Urine Leukocyte Esterase Negative (NEG) Urine RBC Occ /HPF (0-2) Urine WBC 0 /HPF (0-4) Urine Squamous Epithelial Cells Occ /LPF Urine Bacteria 0 /HPF (0-FEW) Laboratory Tests Test 12/11/19 09:45 12/11/19 10:40 White Blood Count 10.4 x10^3/uL (4.0-11.0) Red Blood Count 5.06 x10^6/uL (4.30-5.70) Hemoglobin 14.4 g/dL (13.0-17.5) Hematocrit 42.5 % (39.0-53.0) Mean Corpuscular Volume 84 fL (79-100) Mean Corpuscular Hemoglobin 28 pg (25-35) Mean Corpuscular Hemoglobin Concent 34 g/dL (31-37) Red Cell Distribution Width 13.2 % (11.5-14.5) Platelet Count 408 x10^3/uL (140-400) Neutrophils (%) (Auto) 65 % (31-73) Lymphocytes (%) (Auto) 24 % (24-48) Monocytes (%) (Auto) 9 % (0-9) Eosinophils (%) (Auto) 1 % (0-3) Basophils (%) (Auto) 1 % (0-3) Neutrophils # (Auto) 6.8 x10^3/uL (1.8-7.7) Lymphocytes # (Auto) 2.5 x10^3/uL (1.0-4.8) Monocytes # (Auto) 1.0 x10^3/uL (0.0-1.1) Eosinophils # (Auto) 0.1 x10^3/uL (0.0-0.7) Basophils # (Auto) 0.1 x10^3/uL (0.0-0.2) Sodium Level 136 mmol/L (136-145) Potassium Level 3.6 mmol/L (3.5-5.1) Chloride Level 100 mmol/L (98-107) Carbon Dioxide Level 30 mmol/L (21-32) Anion Gap 6 (6-14) Blood Urea Nitrogen 22 mg/dL (8-26) Creatinine 1.0 mg/dL (0.7-1.3) Estimated GFR (Cockcroft-Gault) 82.8 Glucose Level 124 mg/dL (70-99) Calcium Level 8.9 mg/dL (8.5-10.1) Urine Collection Type Unknown Urine Color Yellow Urine Clarity Clear Urine pH 6.5 Urine Specific [place] 1.015 Urine Protein Negative mg/dL (NEG-TRACE) Urine Glucose (UA) Negative mg/dL (NEG) Urine Ketones (Stick) Negative mg/dL (NEG) Urine Blood Negative (NEG) Urine Nitrite Negative (NEG) Urine Bilirubin Negative (NEG) Urine Urobilinogen Dipstick 1.0 mg/dL (0.2 mg/dL) Urine Leukocyte Esterase Negative (NEG) Urine RBC Occ /HPF (0-2) Urine WBC 0 /HPF (0-4) Urine Squamous Epithelial Cells Occ /LPF Urine Bacteria 0 /HPF (0-FEW) Review All relevant outside records, renal labs, imaging studies, telemetry/EKG's were reviewed. Images Images Renal doppler 12/09 1. Mildly elevated peak systolic velocity within the distal left renal artery, suggesting greater than 60 percent stenosis. There is an upper limits of normal peak systolic velocity within the mid right renal artery suggesting near 60 percent stenosis. 2. Unremarkable grayscale evaluation of the kidneys. KRISTIN LUCAS MD Dec 11, 2019 12:02
[2019-12-11 15:00] VITALS: BP 190/104
--- NOTE | 2019-12-11 16:13 | PDOC ---
CARDIO Progress Notes Date and Time Date of Service 12/11/19 Time of Evaluation 1600 Subjective Subjective: No Chest Pain, No shortness of breath, No Palpitations Vitals Vitals Vital Signs Date Time Temp Pulse Resp B/P (MAP) Pulse Ox O2 Delivery O2 Flow Rate FiO2 12/11/19 11:00 97.6 81 20 170/101 (124) 96 Room Air 97.6 Weight Weight [ ] Input and Output Intake and Output Intake and Output 12/11/19 07:00 Intake Total 350 ml Output Total 2075 ml Balance -1725 ml Intake Oral 350 ml Output Urine Total 2075 ml Laboratory Labs Laboratory Tests Test 12/11/19 09:45 12/11/19 10:40 White Blood Count 10.4 x10^3/uL (4.0-11.0) Red Blood Count 5.06 x10^6/uL (4.30-5.70) Hemoglobin 14.4 g/dL (13.0-17.5) Hematocrit 42.5 % (39.0-53.0) Mean Corpuscular Volume 84 fL (79-100) Mean Corpuscular Hemoglobin 28 pg (25-35) Mean Corpuscular Hemoglobin Concent 34 g/dL (31-37) Red Cell Distribution Width 13.2 % (11.5-14.5) Platelet Count 408 x10^3/uL (140-400) Neutrophils (%) (Auto) 65 % (31-73) Lymphocytes (%) (Auto) 24 % (24-48) Monocytes (%) (Auto) 9 % (0-9) Eosinophils (%) (Auto) 1 % (0-3) Basophils (%) (Auto) 1 % (0-3) Neutrophils # (Auto) 6.8 x10^3/uL (1.8-7.7) Lymphocytes # (Auto) 2.5 x10^3/uL (1.0-4.8) Monocytes # (Auto) 1.0 x10^3/uL (0.0-1.1) Eosinophils # (Auto) 0.1 x10^3/uL (0.0-0.7) Basophils # (Auto) 0.1 x10^3/uL (0.0-0.2) Sodium Level 136 mmol/L (136-145) Potassium Level 3.6 mmol/L (3.5-5.1) Chloride Level 100 mmol/L (98-107) Carbon Dioxide Level 30 mmol/L (21-32) Anion Gap 6 (6-14) Blood Urea Nitrogen 22 mg/dL (8-26) Creatinine 1.0 mg/dL (0.7-1.3) Estimated GFR (Cockcroft-Gault) 82.8 Glucose Level 124 mg/dL (70-99) Calcium Level 8.9 mg/dL (8.5-10.1) Urine Collection Type Unknown Urine Color Yellow Urine Clarity Clear Urine pH 6.5 Urine Specific [place] 1.015 Urine Protein Negative mg/dL (NEG-TRACE) Urine Glucose (UA) Negative mg/dL (NEG) Urine Ketones (Stick) Negative mg/dL (NEG) Urine Blood Negative (NEG) Urine Nitrite Negative (NEG) Urine Bilirubin Negative (NEG) Urine Urobilinogen Dipstick 1.0 mg/dL (0.2 mg/dL) Urine Leukocyte Esterase Negative (NEG) Urine RBC Occ /HPF (0-2) Urine WBC 0 /HPF (0-4) Urine Squamous Epithelial Cells Occ /LPF Urine Bacteria 0 /HPF (0-FEW) Physical Exam HEENT: Neck Supple W Full Motion Chest: Symmetric LUNGS: Clear to Auscultation Heart: RRR Abdomen: Soft N/T Extremities: No Edema Neurology: alert, oriented, follow commands Assessment Assessment 1. Hypertensive urgency; Remains elevated 2. Syncope; Uncertain etiology, brief episode while sitting about 4 hours after discharge from the hospital. No acute events on tele thus far. Echo pending 3. IVETT; improved wtih IVFs. ARB/HCTZ held 4. Hyperlipidemia; statin 5. Tobaccoism and marijuana use; discussed/encouraged cessation 6. Abnormal renal duplex; Mildly elevated peak systolic velocity within the distal left renal artery, suggesting greater than 60 percent stenosis. Recommendations Add hydralazine Continue Coreg and [facility] Will plan for further evaluation of TOÑIT[place] with CTA NPO p MN Will hydrate pre and post. Supportive care RAFFI GRAY APRN Dec 11, 2019 16:13
[2019-12-11] MEDS: hydrALAZINE 20 MG/ML VIAL. IVP PRN ×2 (16:40→21:49)
[2019-12-11] MEDS: IV NORMAL SALINE 1000ML BAG 1,000 ML IV SCH (18:08)
[2019-12-11 19:15] VITALS: BP 184/98
[2019-12-11] MEDS: ENOXAPARIN 40 MG/0.4 ML SYRINGE. SQ SCH (20:29)
[2019-12-11] MEDS: ATORVASTATIN CALCIUM 20 MG TABLET PO SCH (20:29)
[2019-12-11 23:55] VITALS: BP 162/90
[2019-12-12 03:25] VITALS: BP 152/85
[2019-12-12] MEDS: IV NORMAL SALINE 1000ML BAG 1,000 ML IV SCH ×2 (03:47→14:25)
[2019-12-12 05:03] LABS: BASO # 0.1 x10^3/uL (0.0-0.2); BASO % 1 % (0-3); EOS # 0.1 x10^3/uL (0.0-0.7); EOS % 1 % (0-3); HEMATOCRIT 42.2 % (39.0-53.0); HEMOGLOBIN 14.2 g/dL (13.0-17.5); LYMPH % 25 % (24-48); MEAN CORPUSCULAR HEMOGLOBIN 28 pg (25-35); MEAN CORPUSCULAR HGB CONC 34 g/dL (31-37); MEAN CORPUSCULAR VOLUME 84 fL (79-100); MONO # 1.4 x10^3/uL (0.0-1.1); MONO % 12 % (0-9); NEUT # 7.4 x10^3/uL (1.8-7.7); NEUT % 62 % (31-73); PLATELET COUNT 441 x10^3/uL (140-400); RED BLOOD COUNT 5.02 x10^6/uL (4.30-5.70); RED CELL DISTRIBUTION WIDTH 13.3 % (11.5-14.5); WHITE BLOOD COUNT 11.9 x10^3/uL (4.0-11.0)
[2019-12-12 05:17] LABS: CALCIUM 9.2 mg/dL (8.5-10.1); CREATININE 0.9 mg/dL (0.7-1.3); GFR 93.5; POTASSIUM 3.9 mmol/L (3.5-5.1)
[2019-12-12 07:00] VITALS: BP 187/114
[2019-12-12] MEDS ORDERED: IOHEXOL 350 MG/ML 100 ML VIAL. IV ONE (07:30)
[2019-12-12] MEDS ORDERED: CONTRAST GIVEN. MC PRN (07:30)
[2019-12-12] MEDS: amLODIPine BESYLATE 10 MG TABLET PO SCH (08:36)
[2019-12-12] MEDS: CARVEDILOL 12.5 MG TABLET. PO SCH ×2 (08:37→16:15)
--- NOTE | 2019-12-12 08:38 | CARD ---
MR#: [id number] Date of Study: 12/11/2019 Ordering Physician: COURTNEY KAT, Referring Physician: COURTNEY KAT, Tech: Betsy Ravi APPROVED REPORT EXAM: Two-dimensional and M-mode echocardiogram with Doppler and color Doppler. Other Information Quality : AverageHR: 81bpm INDICATION Syncope RISK FACTORS Hypertension Smoking 2D DIMENSIONS RVDd3.9 (2.9-3.5cm)Left Atrium(2D)3.8 (1.6-4.0cm) IVSd1.2 (0.7-1.1cm)Aortic Root(2D)3.5 (2.0-3.7cm) LVDd5.3 (3.9-5.9cm)LVOT Diameter2.1 (1.8-2.4cm) PWd1.2 (0.7-1.1cm)LVDs4.2 (2.5-4.0cm) FS (%) 21.0 %SV57.0 ml LVEF(%)42.4 (>50%) Aortic Valve AoV Peak Jorgito.114.8cm/sAoV VTI20.6cm AO Peak GR.5.3mmHgLVOT VTI 15.61cm AO Mean GR.4mmHg Mitral Valve MV E Ljeutsvl53.8cm/sMV DECEL IRQJ625of MV A Kevhrmtg99.9cm/sE/A Ratio1.2 TDI Lateral E' P. V9.59cm/sMedial E' P. V6.69cm/s E/Lateral E'10.1E/Medial E'14.5 Tricuspid Valve TR P. Zvckotbe405vs/sRAP HCEORITG6dcKi TR Peak Gr.30ykJgFVHZ31wlKb Pulmonary Vein S1 Tgyawnxw67.4cm/sS2 Idialabm07.89cm/s D2 Jbgbtlyk41.9cm/s LEFT VENTRICLE The left ventricle is normal size. There is mild concentric left ventricular hypertrophy. The left ve ntricular systolic function is low normal. EF 50% There is normal LV segmental wall motion. Transmitr al Doppler flow pattern is Grade II-pseudonormal filling dynamics. RIGHT VENTRICLE The right ventricle is normal size. There is normal right ventricular wall thickness. The right ventr icular systolic function is normal. ATRIA The left atrium size is normal. The right atrium size is normal. The interatrial septum is intact wit h no evidence for an atrial septal defect or patent foramen ovale as noted on 2-D or Doppler imaging. AORTIC VALVE The aortic valve is normal in structure and function. Doppler and Color Flow revealed no significant aortic regurgitation. There is no significant aortic valvular stenosis. MITRAL VALVE The mitral valve is normal in structure and function. There is no evidence of mitral valve prolapse. There is no mitral valve stenosis. Doppler and Color-flow revealed trace mitral regurgitation. TRICUSPID VALVE The tricuspid valve is normal in structure and function. Doppler and Color Flow revealed trace tricus pid regurgitation with an estimated PAP of 36 mmHg. There is no tricuspid valve stenosis. PULMONIC VALVE The pulmonic valve is not well visualized. Doppler and Color Flow revealed no pulmonic valvular regur gitation. There is no pulmonic valvular stenosis. GREAT VESSELS The aortic root is normal in size. The ascending aorta is normal in size. The IVC is normal in size a nd collapses >50% with inspiration. PERICARDIAL EFFUSION There is no evidence of significant pericardial effusion. Critical Notification Critical Value: No <Conclusion> The left ventricular systolic function is low normal. EF 50% There is normal LV segmental wall motion. Doppler and Color Flow revealed trace tricuspid regurgitation with an estimated PAP of 36 mmHg. Signed by : Roberto Vasquez, Electronically Approved : 12/12/2019 08:37:33
--- NOTE | 2019-12-12 08:49 | RAD ---
CT ANGIOGRAPHY ABDOMEN History: Renal artery stenosis. Technique: CT angiogram abdomen with contrast. Coronal and sagittal maximum intensity projection reconstructions were performed. 3-D reconstructions were performed. Exposure: One or more of the following individualized dose reduction techniques were utilized for this examination: 1. Automated exposure control 2. Adjustment of the mA and/or kV according to patient size 3. Use of iterative reconstruction technique. Comparison: June 28, 2019 CT. Ultrasound October 08, 2020 Findings: Lower chest: No consolidation or pleural effusion. Abdomen and pelvis: Small superior hepatic hypodense lesions measure 5 mm, unchanged. The spleen, adrenal glands, pancreas and gallbladder are unremarkable. Imaged bowel is unremarkable. Normal appearance of the kidneys. No hydronephrosis. Angiogram: The left gastric artery arises directly from the aorta. Celiac artery origin arises on the left aspect of the aorta. No stenosis. Patent superior mesenteric artery and inferior mesenteric artery. No CT evidence of stenosis within the bilateral renal arteries. No significant atheromatous plaque. No arterial wall thickening. No irregularity of the arterial vasculature to suggest fibromuscular dysplasia. Bones: No pathologic osseous lesions. Impression: 1. No CT evidence of renal artery stenosis. 2. Unchanged small superior hepatic hypodensities, statistically benign cysts or hemangiomas although too small to further characterize. Electronically signed by: Rc Arreguin DO (12/12/2019 8:46 AM) [id number]
[2019-12-12 11:00] VITALS: BP 143/88
--- NOTE | 2019-12-12 11:06 | PDOC ---
PROGRESS NOTES History of Present Illness History of Present Illness VTE Prophylaxis Ordered VTE Prophylaxis Devices: Yes VTE Pharmacological Prophylaxi: Yes Assessment/Plan Assessment/Plan Impression: IVETT (acute kidney injury) likely due to ARB AND hypovolemia with hemoconcentration morbid obesity UNCONTROLLED HYPERTENSION elevated peak systolic velocity within the distal left renal artery, suggesting greater than 60 percent stenosis. There is an upper limits of normal peak systolic velocity within the mid right renal artery suggesting near 60 percent stenosis. Syncope Dehydration TOBACCO ABUSE DISORDER recent Hypertensive urgency - seen by cardiology, placed on CCB, BB, ARB/HCTZ with improvement, bp still suboptimal control Elevated peak systolic velocity within the distal left renal artery, suggesting greater than 60 percent stenosis. There is an upper limits of normal peak systolic velocity within the mid right renal artery suggesting near [address] evidence of renal artery stenosis. 12/12 Headache - CT HEAD Minimal patchy hypoattenuation in the bifrontal white matter. Nonspecific, could indicate small vessel ischemic disease, demyelination or vasculitis. Could further evaluate with outpatient MRI brain, as indicated. Hypertensive encephalopathy. Improving. Hyperglycemia - non-diabetic Medication compliance difficulties - DOMINGUEZ cough, transitioned to ARB/HCTZ Moderate protein calorie malnutrition - Low albumin THC ABUSE - was counseled by my partner to reduce use Smoker - counseled, counseled on weight loss, diet, exercise 2018 INGUINAL lymph node is seen on the left side. It measures 3.2 cm in vertical dimension. Stable bilateral inguinal lymph nodes. 12/10 US ADMITTED iv fluid support follow renal fx bp control orthostatics bp/ pulse dvt prophylaxis stop THC USE us inguinal regions inc coreg to 25 mg po bid NEPHROLOGY CONSULT cardiology consult d/c ARB BP SUPPORT INC IV HYDRALAZINE 20MG Q 4 HRS INC PO HYDRALAZINE TO 50 MG TID 26 min pt exam, chart review, > 50% of time spent with exam, chart review, pt care coordination Vitals Vitals Vital Signs Date Time Temp Pulse Resp B/P (MAP) Pulse Ox O2 Delivery O2 Flow Rate FiO2 12/12/19 10:39 Room Air 12/12/19 08:37 96 187/114 12/12/19 07:00 97.8 22 97 97.8 Physical Exam General: Alert, Oriented X3, Cooperative, No acute distress Heart: Regular rate, Normal S1 Lungs: Clear Abdomen: Normal bowel sounds, Soft Extremities: No clubbing, No cyanosis, No edema Skin: No significant lesion Labs LABS CT ANGIOGRAPHY ABDOMEN History: Renal artery stenosis. Technique: CT angiogram abdomen with contrast. Coronal and sagittal maximum intensity projection reconstructions were performed. 3-D reconstructions were performed. Exposure: One or more of the following individualized dose reduction techniques were utilized for this examination: 1. Automated exposure control 2. Adjustment of the mA and/or kV according to patient size 3. Use of iterative reconstruction technique. Comparison: June 28, 2019 CT. Ultrasound October 08, 2020 Findings: Lower chest: No consolidation or pleural effusion. Abdomen and pelvis: Small superior hepatic hypodense lesions measure 5 mm, unchanged. The spleen, adrenal glands, pancreas and gallbladder are unremarkable. Imaged bowel is unremarkable. Normal appearance of the kidneys. No hydronephrosis. Angiogram: The left gastric artery arises directly from the aorta. Celiac artery origin arises on the left aspect of the aorta. No stenosis. Patent superior mesenteric artery and inferior mesenteric artery. No CT evidence of stenosis within the bilateral renal arteries. No significant atheromatous plaque. No arterial wall thickening. No irregularity of the arterial vasculature to suggest fibromuscular dysplasia. Bones: No pathologic osseous lesions. Impression: 1. No CT evidence of renal artery stenosis. 2. Unchanged small superior hepatic hypodensities, statistically benign cysts or hemangiomas although too small to further characterize. Electronically signed by: Rc Blanton DO (12/12/2019 8:46 AM) [id number] DICTATED and SIGNED BY: RC BLANTON DO Laboratory Tests Test 12/12/19 04:40 White Blood Count 11.9 x10^3/uL (4.0-11.0) Red Blood Count 5.02 x10^6/uL (4.30-5.70) Hemoglobin 14.2 g/dL (13.0-17.5) Hematocrit 42.2 % (39.0-53.0) Mean Corpuscular Volume 84 fL (79-100) Mean Corpuscular Hemoglobin 28 pg (25-35) Mean Corpuscular Hemoglobin Concent 34 g/dL (31-37) Red Cell Distribution Width 13.3 % (11.5-14.5) Platelet Count 441 x10^3/uL (140-400) Neutrophils (%) (Auto) 62 % (31-73) Lymphocytes (%) (Auto) 25 % (24-48) Monocytes (%) (Auto) 12 % (0-9) Eosinophils (%) (Auto) 1 % (0-3) Basophils (%) (Auto) 1 % (0-3) Neutrophils # (Auto) 7.4 x10^3/uL (1.8-7.7) Lymphocytes # (Auto) 3.0 x10^3/uL (1.0-4.8) Monocytes # (Auto) 1.4 x10^3/uL (0.0-1.1) Eosinophils # (Auto) 0.1 x10^3/uL (0.0-0.7) Basophils # (Auto) 0.1 x10^3/uL (0.0-0.2) Sodium Level 137 mmol/L (136-145) Potassium Level 3.9 mmol/L (3.5-5.1) Chloride Level 103 mmol/L (98-107) Carbon Dioxide Level 25 mmol/L (21-32) Anion Gap 9 (6-14) Blood Urea Nitrogen 17 mg/dL (8-26) Creatinine 0.9 mg/dL (0.7-1.3) Estimated GFR (Cockcroft-Gault) 93.5 Glucose Level 95 mg/dL (70-99) Calcium Level 9.2 mg/dL (8.5-10.1) Assessment and Plan Assessmemt and Plan Problems Medical Problems: (1) Dehydration Status: Acute Comment Review of Relevant I have reviewed the following items keily (where applicable) has been applied. Labs Laboratory Tests Test 12/11/19 09:45 12/11/19 10:40 12/12/19 04:40 White Blood Count 10.4 x10^3/uL (4.0-11.0) 11.9 x10^3/uL (4.0-11.0) Red Blood Count 5.06 x10^6/uL (4.30-5.70) 5.02 x10^6/uL (4.30-5.70) Hemoglobin 14.4 g/dL (13.0-17.5) 14.2 g/dL (13.0-17.5) Hematocrit 42.5 % (39.0-53.0) 42.2 % (39.0-53.0) Mean Corpuscular Volume 84 fL (79-100) 84 fL (79-100) Mean Corpuscular Hemoglobin 28 pg (25-35) 28 pg (25-35) Mean Corpuscular Hemoglobin Concent 34 g/dL (31-37) 34 g/dL (31-37) Red Cell Distribution Width 13.2 % (11.5-14.5) 13.3 % (11.5-14.5) Platelet Count 408 x10^3/uL (140-400) 441 x10^3/uL (140-400) Neutrophils (%) (Auto) 65 % (31-73) 62 % (31-73) Lymphocytes (%) (Auto) 24 % (24-48) 25 % (24-48) Monocytes (%) (Auto) 9 % (0-9) 12 % (0-9) Eosinophils (%) (Auto) 1 % (0-3) 1 % (0-3) Basophils (%) (Auto) 1 % (0-3) 1 % (0-3) Neutrophils # (Auto) 6.8 x10^3/uL (1.8-7.7) 7.4 x10^3/uL (1.8-7.7) Lymphocytes # (Auto) 2.5 x10^3/uL (1.0-4.8) 3.0 x10^3/uL (1.0-4.8) Monocytes # (Auto) 1.0 x10^3/uL (0.0-1.1) 1.4 x10^3/uL (0.0-1.1) Eosinophils # (Auto) 0.1 x10^3/uL (0.0-0.7) 0.1 x10^3/uL (0.0-0.7) Basophils # (Auto) 0.1 x10^3/uL (0.0-0.2) 0.1 x10^3/uL (0.0-0.2) Sodium Level 136 mmol/L (136-145) 137 mmol/L (136-145) Potassium Level 3.6 mmol/L (3.5-5.1) 3.9 mmol/L (3.5-5.1) Chloride Level 100 mmol/L (98-107) 103 mmol/L (98-107) Carbon Dioxide Level 30 mmol/L (21-32) 25 mmol/L (21-32) Anion Gap 6 (6-14) 9 (6-14) Blood Urea Nitrogen 22 mg/dL (8-26) 17 mg/dL (8-26) Creatinine 1.0 mg/dL (0.7-1.3) 0.9 mg/dL (0.7-1.3) Estimated GFR (Cockcroft-Gault) 82.8 93.5 Glucose Level 124 mg/dL (70-99) 95 mg/dL (70-99) Calcium Level 8.9 mg/dL (8.5-10.1) 9.2 mg/dL (8.5-10.1) Urine Collection Type Unknown Urine Color Yellow Urine Clarity Clear Urine pH 6.5 Urine Specific [place] 1.015 Urine Protein Negative mg/dL (NEG-TRACE) Urine Glucose (UA) Negative mg/dL (NEG) Urine Ketones (Stick) Negative mg/dL (NEG) Urine Blood Negative (NEG) Urine Nitrite Negative (NEG) Urine Bilirubin Negative (NEG) Urine Urobilinogen Dipstick 1.0 mg/dL (0.2 mg/dL) Urine Leukocyte Esterase Negative (NEG) Urine RBC Occ /HPF (0-2) Urine WBC 0 /HPF (0-4) Urine Squamous Epithelial Cells Occ /LPF Urine Bacteria 0 /HPF (0-FEW) Laboratory Tests Test 12/12/19 04:40 White Blood Count 11.9 x10^3/uL (4.0-11.0) Red Blood Count 5.02 x10^6/uL (4.30-5.70) Hemoglobin 14.2 g/dL (13.0-17.5) Hematocrit 42.2 % (39.0-53.0) Mean Corpuscular Volume 84 fL (79-100) Mean Corpuscular Hemoglobin 28 pg (25-35) Mean Corpuscular Hemoglobin Concent 34 g/dL (31-37) Red Cell Distribution Width 13.3 % (11.5-14.5) Platelet Count 441 x10^3/uL (140-400) Neutrophils (%) (Auto) 62 % (31-73) Lymphocytes (%) (Auto) 25 % (24-48) Monocytes (%) (Auto) 12 % (0-9) Eosinophils (%) (Auto) 1 % (0-3) Basophils (%) (Auto) 1 % (0-3) Neutrophils # (Auto) 7.4 x10^3/uL (1.8-7.7) Lymphocytes # (Auto) 3.0 x10^3/uL (1.0-4.8) Monocytes # (Auto) 1.4 x10^3/uL (0.0-1.1) Eosinophils # (Auto) 0.1 x10^3/uL (0.0-0.7) Basophils # (Auto) 0.1 x10^3/uL (0.0-0.2) Sodium Level 137 mmol/L (136-145) Potassium Level 3.9 mmol/L (3.5-5.1) Chloride Level 103 mmol/L (98-107) Carbon Dioxide Level 25 mmol/L (21-32) Anion Gap 9 (6-14) Blood Urea Nitrogen 17 mg/dL (8-26) Creatinine 0.9 mg/dL (0.7-1.3) Estimated GFR (Cockcroft-Gault) 93.5 Glucose Level 95 mg/dL (70-99) Calcium Level 9.2 mg/dL (8.5-10.1) Medications Current Medications Sodium Chloride 1,000 ml @ 1,000 mls/hr 1X ONCE IV Last administered on 12/10/19at 00:20; Start 12/10/19 at 00:15; Stop 12/10/19 at 01:14; Status DC Sodium Chloride 1,000 ml @ 125 mls/hr Q8H IV Last administered on 12/10/19at 16:30; Start 12/10/19 at 00:30; Stop 12/11/19 at 00:29; Status DC Amlodipine Besylate (Norvasc) 10 mg DAILY PO Last administered on 12/12/19at 08:36; Start 12/10/19 at 11:00 Atorvastatin Calcium (Lipitor) 20 mg QHS PO Last administered on 12/11/19at 20:29; Start 12/10/19 at 21:00 Carvedilol (Coreg) 12.5 mg BIDWMEALS PO Last administered on 12/10/19at 11:45; Start 12/10/19 at 11:00; Stop 12/10/19 at 13:11; Status DC Carvedilol (Coreg) 25 mg BIDWMEALS PO Last administered on 12/12/19at 08:37; Start 12/10/19 at 17:00 Sodium Chloride (Normal Saline Flush) 3 ml QSHIFT PRN IV AFTER MEDS AND BLOOD DRAWS; Start 12/10/19 at 21:30 Ondansetron HCl (Zofran) 4 mg PRN Q4HRS PRN IV NAUSEA/VOMITING; Start 12/10/19 at 21:30 Acetaminophen (Tylenol) 650 mg PRN Q4HRS PRN PO TEMP OVER 100.4F OR MILD PAIN; Start 12/10/19 at 21:30 Al Hydroxide/Mg Hydroxide (Mylanta Plus Xs) 30 ml PRN DAILY PRN PO HEARTBURN / GAS; Start 12/10/19 at 21:30 Clonidine HCl (Catapres) 0.1 mg PRN Q6HRS PRN PO SBP>160 OR DBP>90 Last administered on 12/11/19at 03:03; Start 12/10/19 at 21:30; Stop 12/11/19 at 16:1 9; Status DC Docusate Sodium (Colace) 100 mg PRN BID PRN PO CONSTIPATION Last administered on 12/12/19at 08:36; Start 12/10/19 at 21:30 Albuterol Sulfate (Ventolin Neb Soln) 2.5 mg PRN Q4HRS PRN NEB SHORTNESS OF BREATH; Start 12/10/19 at 21:30 Guaifenesin (Robitussin) 200 mg PRN Q4HRS PRN PO COUGH; Start 12/10/19 at 21:30 Lorazepam (Ativan) 0.5 mg PRN Q4HRS PRN PO ANXIETY / AGITATION; Start 12/10/19 at 21:30 Enoxaparin Sodium (Lovenox 40mg Syringe) 40 mg Q24H SQ Last administered on 12/11/19at 20:29; Start 12/10/19 at 22:00 Hydralazine HCl (Apresoline Inj) 10 mg PRN Q6HRS PRN IVP ELEVATED BP, SEE COMMENTS Last administered on 12/11/19at 21:49; Start 12/11/19 at 16:15 Hydralazine HCl (Apresoline) 50 mg BID PO Last administered on 12/12/19at 08:35; Start 12/11/19 at 17:00 Hydralazine HCl (Apresoline) 50 mg 1X ONCE PO Last administered on 12/11/19at 20:30; Start 12/11/19 at 21:00; Stop 12/11/19 at 21:01; Status DC Sodium Chloride 1,000 ml @ 100 mls/hr Q10H IV Last administered on 12/12/19at 03:47; Start 12/11/19 at 17:30 Iohexol (Omnipaque 350 Mg/ml) 90 ml 1X ONCE IV Last administered on 12/12/19at 07:30; Start 12/12/19 at 07:30; Stop 12/12/19 at 07:31; Status DC Info (CONTRAST GIVEN -- Rx MONITORING) 1 each PRN DAILY PRN MC SEE COMMENTS; Start 12/12/19 at 07:30; Stop 12/14/19 at 07:29 Active Scripts Active Hyzaar 100-25 Tablet (Losartan/Hydrochlorothiazide) 1 Each Tablet 1 Tab PO DAILY 90 Days Amlodipine Besylate 10 Mg Tablet 10 Mg PO DAILY 90 Days Carvedilol (Carvedilol) 12.5 Mg Tablet 12.5 Mg PO BIDWMEALS 90 Days Atorvastatin Calcium 20 Mg Tablet 20 Mg PO QHS 90 Days Vitals/I & O Vital Sign - Last 24 Hours 12/11/19 12/11/19 12/11/19 12/11/19 15:00 16:40 16:58 19:15 Temp 98.0 98.1 98.0 98.1 Pulse 84 84 87 85 Resp 20 20 B/P (MAP) 190/104 (132) 190/104 181/93 184/98 (126) Pulse Ox 98 95 O2 Delivery Room Air Room Air 12/11/19 12/11/19 12/11/19 12/11/19 20:15 20:30 21:49 23:55 Temp 97.8 97.8 Pulse 85 89 Resp 18 B/P (MAP) 184/98 186/89 162/90 (114) Pulse Ox 97 O2 Delivery Room Air Room Air 12/12/19 12/12/19 12/12/19 12/12/19 03:25 07:00 08:35 08:36 Temp 97.7 97.8 97.7 97.8 Pulse 95 95 92 89 Resp 18 22 B/P (MAP) 152/85 (107) 187/114 (138) 187/114 187/114 Pulse Ox 97 97 O2 Delivery Room Air Room Air 12/12/19 12/12/19 08:37 10:39 Pulse 96 B/P (MAP) 187/114 O2 Delivery Room Air Intake and Output 12/11/19 12/11/19 12/12/19 15:00 23:00 07:00 Intake Total 490 ml 250 ml 400 ml Output Total 1100 ml 1200 ml Balance 490 ml -850 ml -800 ml COURTNEY KAT MD Dec 12, 2019 11:06
[2019-12-12] MEDS ORDERED: hydrALAZINE 20 MG/ML VIAL. IVP PRN (11:15)
--- NOTE | 2019-12-12 12:49 | PDOC ---
Renal-Progress Notes Subjective Notes Notes NO NEW COMPLAINTS History of Present Illness Hx of present illness IMPROVED Vitals Vitals Vital Signs Date Time Temp Pulse Resp B/P (MAP) Pulse Ox O2 Delivery O2 Flow Rate FiO2 12/12/19 11:00 97.8 88 20 143/88 (106) 97 Room Air 97.8 Weight Weight [ ] I.O. Intake and Output Intake and Output 12/12/19 07:00 Intake Total 1140 ml Output Total 2300 ml Balance -1160 ml Intake Oral 1140 ml Output Urine Total 2300 ml Labs Labs Laboratory Tests Test 12/12/19 04:40 White Blood Count 11.9 x10^3/uL (4.0-11.0) Red Blood Count 5.02 x10^6/uL (4.30-5.70) Hemoglobin 14.2 g/dL (13.0-17.5) Hematocrit 42.2 % (39.0-53.0) Mean Corpuscular Volume 84 fL (79-100) Mean Corpuscular Hemoglobin 28 pg (25-35) Mean Corpuscular Hemoglobin Concent 34 g/dL (31-37) Red Cell Distribution Width 13.3 % (11.5-14.5) Platelet Count 441 x10^3/uL (140-400) Neutrophils (%) (Auto) 62 % (31-73) Lymphocytes (%) (Auto) 25 % (24-48) Monocytes (%) (Auto) 12 % (0-9) Eosinophils (%) (Auto) 1 % (0-3) Basophils (%) (Auto) 1 % (0-3) Neutrophils # (Auto) 7.4 x10^3/uL (1.8-7.7) Lymphocytes # (Auto) 3.0 x10^3/uL (1.0-4.8) Monocytes # (Auto) 1.4 x10^3/uL (0.0-1.1) Eosinophils # (Auto) 0.1 x10^3/uL (0.0-0.7) Basophils # (Auto) 0.1 x10^3/uL (0.0-0.2) Sodium Level 137 mmol/L (136-145) Potassium Level 3.9 mmol/L (3.5-5.1) Chloride Level 103 mmol/L (98-107) Carbon Dioxide Level 25 mmol/L (21-32) Anion Gap 9 (6-14) Blood Urea Nitrogen 17 mg/dL (8-26) Creatinine 0.9 mg/dL (0.7-1.3) Estimated GFR (Cockcroft-Gault) 93.5 Glucose Level 95 mg/dL (70-99) Calcium Level 9.2 mg/dL (8.5-10.1) Review of Systems Constitutional: yes: weakness, alert Ears/Nose/Throat: Yes: no symptom reported Eyes: Yes: no symptom reported Pulmonary: Yes no symptom reported Gastrointestional: Yes: no symptom reported Genitourinary: Yes: no symptom reported Musculoskeletal: Yes: no symptom reported Skin: Yes no symptom reported Psychiatric/Neurological: Yes: no symptom reported Endocrine: Yes: no symptom reported Physical Exam General Appearance: no apparent distress Skin: warm Heart: S1S2 Abdomen: soft, bowel sounds present Genitourinary: bladder flat Neurology: alert, oriented, follow commands Assessment Assessment 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
--- NOTE | 2019-12-12 13:55 | PDOC ---
CARDIO Progress Notes Date and Time Date of Service 12/12/19 Time of Evaluation 1350 Subjective Subjective: No Chest Pain, No shortness of breath, No Palpitations Vitals Vitals Vital Signs Date Time Temp Pulse Resp B/P (MAP) Pulse Ox O2 Delivery O2 Flow Rate FiO2 12/12/19 11:00 97.8 88 20 143/88 (106) 97 Room Air 97.8 Weight Weight [ ] Input and Output Intake and Output Intake and Output 12/12/19 07:00 Intake Total 1140 ml Output Total 2300 ml Balance -1160 ml Intake Oral 1140 ml Output Urine Total 2300 ml Laboratory Labs Laboratory Tests Test 12/12/19 04:40 White Blood Count 11.9 x10^3/uL (4.0-11.0) Red Blood Count 5.02 x10^6/uL (4.30-5.70) Hemoglobin 14.2 g/dL (13.0-17.5) Hematocrit 42.2 % (39.0-53.0) Mean Corpuscular Volume 84 fL (79-100) Mean Corpuscular Hemoglobin 28 pg (25-35) Mean Corpuscular Hemoglobin Concent 34 g/dL (31-37) Red Cell Distribution Width 13.3 % (11.5-14.5) Platelet Count 441 x10^3/uL (140-400) Neutrophils (%) (Auto) 62 % (31-73) Lymphocytes (%) (Auto) 25 % (24-48) Monocytes (%) (Auto) 12 % (0-9) Eosinophils (%) (Auto) 1 % (0-3) Basophils (%) (Auto) 1 % (0-3) Neutrophils # (Auto) 7.4 x10^3/uL (1.8-7.7) Lymphocytes # (Auto) 3.0 x10^3/uL (1.0-4.8) Monocytes # (Auto) 1.4 x10^3/uL (0.0-1.1) Eosinophils # (Auto) 0.1 x10^3/uL (0.0-0.7) Basophils # (Auto) 0.1 x10^3/uL (0.0-0.2) Sodium Level 137 mmol/L (136-145) Potassium Level 3.9 mmol/L (3.5-5.1) Chloride Level 103 mmol/L (98-107) Carbon Dioxide Level 25 mmol/L (21-32) Anion Gap 9 (6-14) Blood Urea Nitrogen 17 mg/dL (8-26) Creatinine 0.9 mg/dL (0.7-1.3) Estimated GFR (Cockcroft-Gault) 93.5 Glucose Level 95 mg/dL (70-99) Calcium Level 9.2 mg/dL (8.5-10.1) Review of Systems Constitutional: yes: weakness, alert Ears/Nose/Throat: Yes: no symptom reported Eyes: Yes: no symptom reported Pulmonary: Yes no symptom reported Gastrointestional: Yes: no symptom reported Genitourinary: Yes: no symptom reported Musculoskeletal: Yes: no symptom reported Skin: Yes no symptom reported Psychiatric/Neurological: Yes: no symptom reported Endocrine: Yes: no symptom reported Physical Exam HEENT: Neck Supple W Full Motion Chest: Symmetric LUNGS: Clear to Auscultation Heart: RRR Abdomen: Soft N/T Extremities: No Edema Neurology: alert, oriented, follow commands Assessment Assessment 1. Hypertensive urgency; BP elevated this am, but better controlled this afternoon. 2. Syncope; Uncertain etiology, brief episode while sitting about 4 hours after discharge from the hospital. No acute events on tele noted. Echo with preserved LV systolic function. No significant valvular anomalies. 3. IVETT; improved wtih IVFs. ARB/HCTZ held 4. Hyperlipidemia; statin 5. Tobaccoism and marijuana use; discussed/encouraged cessation 6. Abnormal renal duplex; Mildly elevated peak systolic velocity within the distal left renal artery, suggesting greater than 60 percent stenosis. CTA without evidence of TOÑITO Recommendations Agree with increasing hydralazine to TID Continue Rosita Norvasc Supportive care May discharge from a CV standpoint Outpatient BP monitoring; to call if SBP consistently > 160 F/u with Dr. Chatman in 4-6 weeks. RAFFI GRAY APRN Dec 12, 2019 13:55
[2019-12-12 15:00] VITALS: BP 182/101
--- NOTE | 2019-12-12 15:13 | NUR ---
Student Co-Sign: I have read the documentation by SN Marisa and concur unless otherwise documented. Mitchel Ruelas RN [facility]
--- NOTE | 2019-12-12 16:52 | PDOC3 ---
Discharge Summary Date of Admission: Dec 10, 2019 Date of Discharge: Dec 12, 2019 Follow-Up: 3-5 days Admitting Diagnosis comment: DISCHARGE DX Assessment/Plan Impression: IVETT (acute kidney injury) likely due to ARB AND hypovolemia with hemoconcentration morbid obesity UNCONTROLLED HYPERTENSION elevated peak systolic velocity within the distal left renal artery, suggesting greater than 60 percent stenosis. There is an upper limits of normal peak systolic velocity within the mid right renal artery suggesting near 60 percent stenosis. Syncope Dehydration TOBACCO ABUSE DISORDER recent Hypertensive urgency - seen by cardiology, placed on CCB, BB, ARB/HCTZ with improvement, bp still suboptimal control Elevated peak systolic velocity within the distal left renal artery, suggesting greater than 60 percent stenosis. There is an upper limits of normal peak systolic velocity within the mid right renal artery suggesting near [address] evidence of renal artery stenosis. 12/12 Headache - CT HEAD Minimal patchy hypoattenuation in the bifrontal white matter. Nonspecific, could indicate small vessel ischemic disease, demyelination or vasculitis. Could further evaluate with outpatient MRI brain, as indicated. Hypertensive encephalopathy. Improving. Hyperglycemia - non-diabetic Medication compliance difficulties - DOMINGUEZ cough, transitioned to ARB/HCTZ Moderate protein calorie malnutrition - Low albumin THC ABUSE - was counseled by my partner to reduce use Smoker - counseled, counseled on weight loss, diet, exercise 2018 INGUINAL lymph node is seen on the left side. It measures 3.2 cm in vertical dimension. Stable bilateral inguinal lymph nodes. 12/10 US ADMITTED iv fluid support follow renal fx bp control orthostatics bp/ pulse dvt prophylaxis stop THC USE us inguinal regions inc coreg to 25 mg po bid NEPHROLOGY CONSULT cardiology consult d/c ARB BP SUPPORT INC IV HYDRALAZINE 20MG Q 4 HRS INC PO HYDRALAZINE TO 50 MG TID NO THC 33 min pt exam D/C PLANNING , chart review, > 50% of time spent with exam, chart review, pt care coordination Vitals Vitals Vital Signs Date Time Temp Pulse Resp B/P (MAP) Pulse Ox O2 Delivery O2 Flow Rate FiO2 12/12/19 10:39 Room Air 12/12/19 08:37 96 187/114 12/12/19 07:00 97.8 22 97 97.8 Physical Exam General: Alert, Oriented X3, Cooperative, No acute distress Heart: Regular rate, Normal S1 Lungs: Clear Abdomen: Normal bowel sounds, Soft Extremities: No clubbing, No cyanosis, No edema Skin: No significant lesion Labs LABS CT ANGIOGRAPHY ABDOMEN History: Renal artery stenosis. Technique: CT angiogram abdomen with contrast. Coronal and sagittal maximum intensity projection reconstructions were performed. 3-D reconstructions were performed. Exposure: One or more of the following individualized dose reduction techniques were utilized for this examination: 1. Automated exposure control 2. Adjustment of the mA and/or kV according to patient size 3. Use of iterative reconstruction technique. Comparison: June 28, 2019 CT. Ultrasound October 08, 2020 Findings: Lower chest: No consolidation or pleural effusion. Abdomen and pelvis: Small superior hepatic hypodense lesions measure 5 mm, unchanged. The spleen, adrenal glands, pancreas and gallbladder are unremarkable. Imaged bowel is unremarkable. Normal appearance of the kidneys. No hydronephrosis. Angiogram: The left gastric artery arises directly from the aorta. Celiac artery origin arises on the left aspect of the aorta. No stenosis. Patent superior mesenteric artery and inferior mesenteric artery. No CT evidence of stenosis within the bilateral renal arteries. No significant atheromatous plaque. No arterial wall thickening. No irregularity of the arterial vasculature to suggest fibromuscular dysplasia. Bones: No pathologic osseous lesions. Impression: 1. No CT evidence of renal artery stenosis. 2. Unchanged small superior hepatic hypodensities, statistically benign cysts or hemangiomas although too small to further characterize. FINAL DIAGNOSIS Problems Medical Problems: (1) Dehydration Status: Acute Brief Hospital Course Mr. Ariaz is a 39 old [sex] who presented with [ IVETT, HTN] CONDITION AT DISCHARGE: Improved Discharge Medications Current Medications Sodium Chloride 1,000 ml @ 1,000 mls/hr 1X ONCE IV Last administered on 12/10/19at 00:20; Start 12/10/19 at 00:15; Stop 12/10/19 at 01:14; Status DC Sodium Chloride 1,000 ml @ 125 mls/hr Q8H IV Last administered on 12/10/19at 16:30; Start 12/10/19 at 00:30; Stop 12/11/19 at 00:29; Status DC Amlodipine Besylate (Norvasc) 10 mg DAILY PO Last administered on 12/12/19at 08:36; Start 12/10/19 at 11:00 Atorvastatin Calcium (Lipitor) 20 mg QHS PO Last administered on 12/11/19 20:29; Start 12/10/19 at 21:00 Carvedilol (Coreg) 12.5 mg BIDWMEALS PO Last administered on 12/10/19at 11:45; Start 12/10/19 at 11:00; Stop 12/10/19 at 13:11; Status DC Carvedilol (Coreg) 25 mg BIDWMEALS PO Last administered on 12/12/19at 16:15; Start 12/10/19 at 17:00 Sodium Chloride (Normal Saline Flush) 3 ml QSHIFT PRN IV AFTER MEDS AND BLOOD DRAWS; Start 12/10/19 at 21:30 Ondansetron HCl (Zofran) 4 mg PRN Q4HRS PRN IV NAUSEA/VOMITING; Start 12/10/19 at 21:30 Acetaminophen (Tylenol) 650 mg PRN Q4HRS PRN PO TEMP OVER 100.4F OR MILD PAIN; Start 12/10/19 at 21:30 Al Hydroxide/Mg Hydroxide (Mylanta Plus Xs) 30 ml PRN DAILY PRN PO HEARTBURN / GAS; Start 12/10/19 at 21:30 Clonidine HCl (Catapres) 0.1 mg PRN Q6HRS PRN PO SBP>160 OR DBP>90 Last administered on 12/11/19at 03:03; Start 12/10/19 at 21:30; Stop 12/11/19 at 16:19; Status DC Docusate Sodium (Colace) 100 mg PRN BID PRN PO CONSTIPATION Last administered on 12/12/19at 08:36; Start 12/10/19 at 21:30 Albuterol Sulfate (Ventolin Neb Soln) 2.5 mg PRN Q4HRS PRN NEB SHORTNESS OF BREATH; Start 12/10/19 at 21:30 Guaifenesin (Robitussin) 200 mg PRN Q4HRS PRN PO COUGH; Start 12/10/19 at 21:30 Lorazepam (Ativan) 0.5 mg PRN Q4HRS PRN PO ANXIETY / AGITATION; Start 12/10/19 at 21:30 Enoxaparin Sodium (Lovenox 40mg Syringe) 40 mg Q24H SQ Last administered on 12/11/19at 20:29; Start 12/10/19 at 22:00 Hydralazine HCl (Apresoline Inj) 10 mg PRN Q6HRS PRN IVP ELEVATED BP, SEE COMMENTS Last administered on 12/11/19at 21:49; Start 12/11/19 at 16:15; Stop 12/12/19 at 11:08; Status DC Hydralazine HCl (Apresoline) 50 mg BID PO Last administered on 12/12/19at 08:35; Start 12/11/19 at 17:00; Stop 12/12/19 at 15:14; Status DC Hydralazine HCl (Apresoline) 50 mg 1X ONCE PO Last administered on 12/11/19at 20:30; Start 12/11/19 at 21:00; Stop 12/11/19 at 21:01; Status DC Sodium Chloride 1,000 ml @ 100 mls/hr Q10H IV Last administered on 12/12/19at 14:25; Start 12/11/19 at 17:30 Iohexol (Omnipaque 350 Mg/ml) 90 ml 1X ONCE IV Last administered on 12/12/19at 07:30; Start 12/12/19 at 07:30; Stop 12/12/19 at 07:31; Status DC Info (CONTRAST GIVEN -- Rx MONITORING) 1 each PRN DAILY PRN MC SEE COMMENTS; Start 12/12/19 at 07:30; Stop 12/14/19 at 07:29 Hydralazine HCl (Apresoline Inj) 20 mg PRN Q4HRS PRN IVP ELEVATED BP, SEE COMMENTS; Start 12/12/19 at 11:15 Hydralazine HCl (Apresoline) 50 mg [id number] PO Last administered on 12/12/19at 16:14; Start 12/12/19 at 15:30 Active Scripts Active Hyzaar 100-25 Tablet (Losartan/Hydrochlorothiazide) 1 Each Tablet 1 Tab PO DAILY 90 Days Amlodipine Besylate 10 Mg Tablet 10 Mg PO DAILY 90 Days Carvedilol (Carvedilol) 12.5 Mg Tablet 12.5 Mg PO BIDWMEALS 90 Days Atorvastatin Calcium 20 Mg Tablet 20 Mg PO QHS 90 Days Vital Signs Vital Signs Date Time Temp Pulse Resp B/P (MAP) Pulse Ox O2 Delivery O2 Flow Rate FiO2 12/12/19 16:15 86 170/102 12/12/19 15:00 97.8 20 99 Room Air 97.8 Labs Laboratory Tests Test 12/11/19 09:45 12/11/19 10:40 12/12/19 04:40 White Blood Count 10.4 x10^3/uL (4.0-11.0) 11.9 x10^3/uL (4.0-11.0) Red Blood Count 5.06 x10^6/uL (4.30-5.70) 5.02 x10^6/uL (4.30-5.70) Hemoglobin 14.4 g/dL (13.0-17.5) 14.2 g/dL (13.0-17.5) Hematocrit 42.5 % (39.0-53.0) 42.2 % (39.0-53.0) Mean Corpuscular Volume 84 fL (79-100) 84 fL (79-100) Mean Corpuscular Hemoglobin 28 pg (25-35) 28 pg (25-35) Mean Corpuscular Hemoglobin Concent 34 g/dL (31-37) 34 g/dL (31-37) Red Cell Distribution Width 13.2 % (11.5-14.5) 13.3 % (11.5-14.5) Platelet Count 408 x10^3/uL (140-400) 441 x10^3/uL (140-400) Neutrophils (%) (Auto) 65 % (31-73) 62 % (31-73) Lymphocytes (%) (Auto) 24 % (24-48) 25 % (24-48) Monocytes (%) (Auto) 9 % (0-9) 12 % (0-9) Eosinophils (%) (Auto) 1 % (0-3) 1 % (0-3) Basophils (%) (Auto) 1 % (0-3) 1 % (0-3) Neutrophils # (Auto) 6.8 x10^3/uL (1.8-7.7) 7.4 x10^3/uL (1.8-7.7) Lymphocytes # (Auto) 2.5 x10^3/uL (1.0-4.8) 3.0 x10^3/uL (1.0-4.8) Monocytes # (Auto) 1.0 x10^3/uL (0.0-1.1) 1.4 x10^3/uL (0.0-1.1) Eosinophils # (Auto) 0.1 x10^3/uL (0.0-0.7) 0.1 x10^3/uL (0.0-0.7) Basophils # (Auto) 0.1 x10^3/uL (0.0-0.2) 0.1 x10^3/uL (0.0-0.2) Sodium Level 136 mmol/L (136-145) 137 mmol/L (136-145) Potassium Level 3.6 mmol/L (3.5-5.1) 3.9 mmol/L (3.5-5.1) Chloride Level 100 mmol/L (98-107) 103 mmol/L (98-107) Carbon Dioxide Level 30 mmol/L (21-32) 25 mmol/L (21-32) Anion Gap 6 (6-14) 9 (6-14) Blood Urea Nitrogen 22 mg/dL (8-26) 17 mg/dL (8-26) Creatinine 1.0 mg/dL (0.7-1.3) 0.9 mg/dL (0.7-1.3) Estimated GFR (Cockcroft-Gault) 82.8 93.5 Glucose Level 124 mg/dL (70-99) 95 mg/dL (70-99) Calcium Level 8.9 mg/dL (8.5-10.1) 9.2 mg/dL (8.5-10.1) Urine Collection Type Unknown Urine Color Yellow Urine Clarity Clear Urine pH 6.5 Urine Specific [place] 1.015 Urine Protein Negative mg/dL (NEG-TRACE) Urine Glucose (UA) Negative mg/dL (NEG) Urine Ketones (Stick) Negative mg/dL (NEG) Urine Blood Negative (NEG) Urine Nitrite Negative (NEG) Urine Bilirubin Negative (NEG) Urine Urobilinogen Dipstick 1.0 mg/dL (0.2 mg/dL) Urine Leukocyte Esterase Negative (NEG) Urine RBC Occ /HPF (0-2) Urine WBC 0 /HPF (0-4) Urine Squamous Epithelial Cells Occ /LPF Urine Bacteria 0 /HPF (0-FEW) Laboratory Tests Test 12/12/19 04:40 White Blood Count 11.9 x10^3/uL (4.0-11.0) Red Blood Count 5.02 x10^6/uL (4.30-5.70) Hemoglobin 14.2 g/dL (13.0-17.5) Hematocrit 42.2 % (39.0-53.0) Mean Corpuscular Volume 84 fL (79-100) Mean Corpuscular Hemoglobin 28 pg (25-35) Mean Corpuscular Hemoglobin Concent 34 g/dL (31-37) Red Cell Distribution Width 13.3 % (11.5-14.5) Platelet Count 441 x10^3/uL (140-400) Neutrophils (%) (Auto) 62 % (31-73) Lymphocytes (%) (Auto) 25 % (24-48) Monocytes (%) (Auto) 12 % (0-9) Eosinophils (%) (Auto) 1 % (0-3) Basophils (%) (Auto) 1 % (0-3) Neutrophils # (Auto) 7.4 x10^3/uL (1.8-7.7) Lymphocytes # (Auto) 3.0 x10^3/uL (1.0-4.8) Monocytes # (Auto) 1.4 x10^3/uL (0.0-1.1) Eosinophils # (Auto) 0.1 x10^3/uL (0.0-0.7) Basophils # (Auto) 0.1 x10^3/uL (0.0-0.2) Sodium Level 137 mmol/L (136-145) Potassium Level 3.9 mmol/L (3.5-5.1) Chloride Level 103 mmol/L (98-107) Carbon Dioxide Level 25 mmol/L (21-32) Anion Gap 9 (6-14) Blood Urea Nitrogen 17 mg/dL (8-26) Creatinine 0.9 mg/dL (0.7-1.3) Estimated GFR (Cockcroft-Gault) 93.5 Glucose Level 95 mg/dL (70-99) Calcium Level 9.2 mg/dL (8.5-10.1) Allergies Allergies Coded Allergies Type Severity Reaction Last Updated Verified No Known Drug Allergies 12/17/15 No Disposition/Orders: D/C to Home COURTNEY KAT MD Dec 12, 2019 16:52
[2019-12-12] MEDS ORDERED: CARV12.511 PO (16:54)
[2019-12-12] MEDS ORDERED: HYDR-2869 PO (16:54)
--- NOTE | 2019-12-12 16:55 | DISCH ---
DISCHARGE INSTRUCTIONS Condition on Discharge Condition on Discharge: Stable Activity After Discharge Activity Instructions for Disc: Activity as tolerated Lifting Instructions after Dis: No heavy lifting, No pulling or pushing Driving Instructions after Dis: Do not drive today Diet after Discharge Diet after Discharge: Cardiac, No Added Salt Diet Texture: Regular Liquid Texture: Thin Liquid Wound Incision Care Wound/Incision Care: No wound care needed Checks after Discharge Checks after discharge: Check blood press - daily, Check your Temp as needed Contacting the DR. after DC Call your doctor for: If your condition worsens Treatment/Equipment after DC Adaptive Equipment Issued: None Warfarin Follow-Up Warfarin Follow UP: SEE PCP IN 3-4 DAYS COURTNEY KAT MD Dec 12, 2019 16:55
[2019-12-12] MEDS ORDERED: hydrALAZINE 20 MG/ML VIAL. IVP ONE (17:00)
[2019-12-12 17:05] VITALS: BP 145/85
[2019-12-12] MEDS ORDERED: ISOSORBIDE MONONITRATE ER 30 MG TAB.ER.24H PO SCH (17:15)
--- NOTE | 2019-12-12 18:12 | NUR ---
Discharge Note: WILLIS CORTEZ Discharge instructions and discharge home medications reviewed with Patient and a copy given. All questions have been answered and understanding verbalized. The following instructions and handouts were given: VIRAL HTN, DEHYDRATION, SYNCOPE Discontinued lines and drains: Peripheral IV intact. Patient discharged to Home or Self Care with Family Member via Wheelchair
== END 2019-12-12 18:14 | disposition home or self-care (01) | DRG 683 ==
LOC: ER 22:24 → 2 NORTH 12-10 00:33 → OBSVTOIN 12-10 20:05
PROVIDERS: ADMIT Internal Medicine; ATTEND Internal Medicine
DX: N17.9 Acute kidney failure, unspecified (principal); E44.0 Moderate protein-calorie malnutrition; I67.4 Hypertensive encephalopathy; E66.01 Morbid (severe) obesity due to excess calories; E78.5 Hyperlipidemia, unspecified; E86.0 Dehydration; E86.1 Hypovolemia; F12.10 Cannabis abuse, uncomplicated; F17.210 Nicotine dependence, cigarettes, uncomplicated; R73.9 Hyperglycemia, unspecified; I10 Essential (primary) hypertension; I16.0 Hypertensive urgency; Z82.49 Family history of ischemic heart disease and other diseases of the circulatory system; Z91.14 Patient's other noncompliance with medication regimen; Z68.32 Body mass index [BMI] 32.0-32.9, adult
CPT/HCPCS: 36415; 71045; 74175; 76882; 80048; 80053; 81001; 83735; 83880; 84484; 85025; 93005; 93306; G0378; G0379; J0360; J1650; J7030; Q9967

== ENCOUNTER 2021-06-10 13:51 | Inpatient (IN) | payer SELFPAY ==
[~2021-06-10] VITALS: Ht 175.3 cm; Wt 116.3 kg
[~2021-06-10 13:51] MED LIST changes: +AMLO-187 PO; -AMLO10TA8 PO; -CLIN150C14 PO; +CLIN150C16 PO; +HYDR-2869 PO
--- NOTE | 2021-06-10 14:43 | PHYS DOC ---
Past Medical History Past Medical History: Asthma, CHF, Hypertension Past Surgical History: Other Additional Past Surgical Histo: T&M TUBES, Adnoids removed. Smoking Status: Current Every Day Smoker Alcohol Use: Rarely Drug Use: Marijuana General Adult EDM: Chief Complaint: MULTIPLE COMPLAINTS HPI: HPI: 40-year-old male with a history of medical noncompliance, hypertension presents to the emergency department complaining of chronic shortness of breath worsening over the past several days. He also complains of leg swelling that has been pr ogressive for last several months. Last time he was in the hospital he was offered admission but he elected to leave AGAINST MEDICAL ADVICE. He was then given blood pressure medicine which she decided to not fill. He comes in today tachycardic and hypertensive. He denies chest pain at this time states he is short of breath. His mother, who also provides his history states that he has been hallucinating at home. He has been talking to inanimate objects and acting somewhat inappropriately in the house. He denies any drug use alcohol use. Review of Systems: Review of Systems: Constitutional: Denies fever or chills. Eyes: Denies change in vision, pain. HENT: Denies congestion or sore throat. Respiratory: Admits to shortness of breath, denies cough. Cardiovascular: Denies chest pain or edema. GI: Denies abdominal pain, nausea. : Denies change in urination, dysuria. Musculoskeletal: Denies extremity pain, or trauma. Skin: Denies rash, skin change. Neurologic: Denies headache, focal weakness. Psychiatric: Denies depression or anxiety. All other systems reviewed as negative except for what was mentioned in the HPI. Heart Score: C/O Chest Pain: No Current Medications: Current Medications Medications (Trade) Dose Ordered Sig/Terrell Start Time Stop Time Status Last Admin Dose Admin Furosemide (Lasix) 40 mg 1X ONCE 06/10/21 14:45 06/10/21 14:46 UNV Labetalol HCl (Normodyne Iv Push) 20 mg 1X ONCE 06/10/21 14:45 06/10/21 14:46 UNV Allergies: Allergies: Allergies Coded Allergies Type Severity Reaction Last Updated Verified No Known Drug Allergies 12/17/15 No Physical Exam: PE: Constitutional: No acute distress, non-toxic appearance. HENT: Atraumatic, bilateral external ears normal, nose normal. Eyes: PERRLA, EOMI, conjunctiva normal, no discharge. Neck: Normal range of motion, supple, no stridor. Cardiovascular: Tachycardic. 2+ radial pulses Lungs & Thorax: No respiratory distress, symmetrical expansion. Coarse breath sounds bilaterally Abdomen: Soft, no tenderness. Obese Skin: Warm, dry. Extremities: No tenderness, no cyanosis, ROM intact, 2+ lower extremity edema. Neurologic: Alert and oriented X 3, normal motor function, normal sensory function, no focal deficits noted. Non ataxic gait. Cranial nerves II through XII are intact. GCS 15. Psychologic: Affect normal, judgment normal, mood normal. Current Patient Data: Labs: Laboratory Tests Test 06/10/21 14:40 06/10/21 15:05 Urine Collection Type Unknown Urine Color Yellow Urine Clarity Clear Urine pH 6.5 (<5.0-8.0) Urine Specific [place] 1.010 (1.000-1.030) Urine Protein >=300 mg/dL (NEG-TRACE) Urine Glucose (UA) Negative mg/dL (NEG) Urine Ketones (Stick) Negative mg/dL (NEG) Urine Blood Small (NEG) Urine Nitrite Negative (NEG) Urine Bilirubin Negative (NEG) Urine Urobilinogen Dipstick 1.0 mg/dL (0.2 mg/dL) Urine Leukocyte Esterase Negative (NEG) Urine RBC 0 /HPF (0-2) Urine WBC 0 /HPF (0-4) Urine Bacteria 0 /HPF (0-FEW) Urine Opiates Screen Neg (NEG) Urine Methadone Screen Neg (NEG) Urine Barbiturates Neg (NEG) Urine Phencyclidine Screen Neg (NEG) Urine Amphetamine/Methamphetamine Neg (NEG) Urine Benzodiazepines Screen Neg (NEG) Urine Cocaine Screen Neg (NEG) Urine Cannabinoids Screen Pos (NEG) Urine Ethyl Alcohol Neg (NEG) White Blood Count 11.1 x10^3/uL (4.0-11.0) Red Blood Count 4.90 x10^6/uL (4.30-5.70) Hemoglobin 13.5 g/dL (13.0-17.5) Hematocrit 40.3 % (39.0-53.0) Mean Corpuscular Volume 82 fL (79-100) Mean Corpuscular Hemoglobin 28 pg (25-35) Mean Corpuscular Hemoglobin Concent 34 g/dL (31-37) Red Cell Distribution Width 17.4 % (11.5-14.5) Platelet Count 368 x10^3/uL (140-400) Neutrophils (%) (Auto) 74 % (31-73) Lymphocytes (%) (Auto) 16 % (24-48) Monocytes (%) (Auto) 8 % (0-9) Eosinophils (%) (Auto) 1 % (0-3) Basophils (%) (Auto) 1 % (0-3) Neutrophils # (Auto) 8.2 x10^3/uL (1.8-7.7) Lymphocytes # (Auto) 1.8 x10^3/uL (1.0-4.8) Monocytes # (Auto) 0.9 x10^3/uL (0.0-1.1) Eosinophils # (Auto) 0.1 x10^3/uL (0.0-0.7) Basophils # (Auto) 0.1 x10^3/uL (0.0-0.2) Sodium Level 138 mmol/L (136-145) Potassium Level 3.8 mmol/L (3.5-5.1) Chloride Level 102 mmol/L (98-107) Carbon Dioxide Level 30 mmol/L (21-32) Anion Gap 6 (6-14) Blood Urea Nitrogen 16 mg/dL (8-26) Creatinine 1.1 mg/dL (0.7-1.3) Estimated GFR (Cockcroft-Gault) 73.8 BUN/Creatinine Ratio 15 (6-20) Glucose Level 124 mg/dL (70-99) Calcium Level 8.7 mg/dL (8.5-10.1) Magnesium Level 2.1 mg/dL (1.8-2.4) Total Bilirubin 0.4 mg/dL (0.2-1.0) Aspartate Amino Transf (AST/SGOT) 41 U/L (15-37) Alanine Aminotransferase (ALT/SGPT) 57 U/L (16-63) Alkaline Phosphatase 160 U/L (46-116) Troponin I Quantitative 0.128 ng/mL (0.000-0.055) MY-Hil-I-Type Natriuretic Peptide 7324 pg/mL (0-124) Total Protein 6.2 g/dL (6.4-8.2) Albumin 2.6 g/dL (3.4-5.0) Albumin/Globulin Ratio 0.7 (1.0-1.7) Thyroid Stimulating Hormone (TSH) 2.642 uIU/mL (0.358-3.74) Vital Signs: Vital Signs Date Time Temp Pulse Resp B/P (MAP) Pulse Ox O2 Delivery O2 Flow Rate FiO2 06/10/21 15:36 108 247/143 06/10/21 14:18 98.1 107 20 232/156 (102) 95 Room Air 98.1 EKG: EKG: Sinus tachycardia rate of 102, no ST-T wave changes, no ectopic beats, normal a xis, normal IA, QRS, and QTc intervals. Impression: Normal EKG. interpreted by me, Beti Addison D.O. Radiology/Procedures: Radiology/Procedures: dendum: As noted in the findings section of the report, there is chronic armando earing left maxillary and ethmoid sinus disease. There are also multiple dental caries and periapical lucencies surrounding the roots of the bilateral mandibular and maxillary molars. Correlate with dental exam findings. Electronically signed by: Lacy Rae MD (06/10/2021 4:08 PM) [id number] ORIGINAL REPORT EXAM: Head and neck CT angiogram with intravenous contrast. HISTORY: Suspected stroke. Mental status changes. Falls. TECHNIQUE: Computed tomographic images of the head and neck were obtained following the administration of intravenous contrast. 3-dimensional images were reconstructed. *One or more of the following individualized dose reduction techniques were utilized for this examination: 1. Automated exposure control. 2. Adjustment of the mA and/or kV according to patient size. 3. Use of iterative reconstruction technique. COMPARISON: Noncontrast head CT obtained on the same date. FINDINGS: The visualized aortic arch is normal in caliber. There is a common origin of the right innominate and left common carotid arteries, a normal aortic arch branching variant. There is intimal thickening involving the proximal arch great vessels, without evidence of hemodynamically significant stenosis. The carotid bifurcations are widely patent. The internal carotid arteries are widely patent. The anterior, middle and posterior cerebral arteries are widely patent. There is a patent anterior communicating artery. The posterior communicating arteries are likely hypoplastic or absent. The basilar artery is widely patent. There is suggestion of a small fenestration within the basilar artery, possibly due to volume averaging of adjacent distal vertebral arteries. The vertebral arteries are widely patent. There is no pneumothorax. There is mild central bronchial wall thickening and left suprahilar groundglass opacity. There are a few prominent mediastinal lymph nodes. For reference purposes, there is a right paratracheal lymph node measuring 1.5 cm. There is no neck lymphadenopathy. There is no mass effect or midline shift. There is no hydrocephalus. There is decreased attenuation within the left frontal and temporal lobes. This better characterized on the noncontrast CT obtained on the same date. There is an incidental cavum septum pellucidum. The orbits are unremarkable. There is complete opacification of the left maxillary sinus and majority of the left ethmoid sinus due to chronic sinusitis. There are right maxillary sinus mucous retention cysts. There are periapical lucencies and caries involving multiple mandibular and maxillary molars. There is fluid within the bilateral mastoid air cells. There are degenerative changes involving the cervical spine. There is no severe foraminal or central canal stenosis. IMPRESSION: 1. No evidence of hemodynamically significant stenosis or arterial occlusion. 2. Subtle decreased attenuation within the left frontal and temporal lobes. This is better characterized on the noncontrast head CT obtained on the same date. The possibility of acute or subacute infarction or demyelination is not excluded. This can be better assessed with MRI. 3. Central bronchial wall thickening, a finding which can be seen with bronchitis. There is also nonspecific left suprahilar groundglass opacity due to atelectasis or interstitial infiltrate. This is stable compared to the CT performed 04/16/2021. 4. Prominent mediastinal lymph nodes, also stable compared to the prior CT. Please refer to the prior CT report for characterization of this finding. PQRS Compliance Statement - Stenosis calculations for CT, MR and conventional angiography are based upon measurement of the distal ICA diameter in accordance with the NASCET methodology. Stenosis calculations for carotid ultrasound studies are derived from validated velocity criteria which are known to correlate with the NASCET methodology. Electronically signed by: Lacy Rae MD (06/10/2021 3:52 PM) Course & Med Decision Making: Course & Med Decision Making 1503: Received call from radiologist regarding patient's CT head noncontrast showing possible demyelination versus stroke, recommended CTA and MRI. CT angio was ordered at this time CT angio does not show large vessel occlusion, patient was given labetalol for hypertensive urgency. Due to his CT findings, patient will need a MRI in the hospital. Neurology consult was placed. I also discussed case with cardiology due to his elevated troponin which is likely from his hypertension. He does not have typical symptoms for ACS. He will be admitted to the hospital. I discussed the case with Dr. Correa at 1700 who will admit the patient. Joint decision not to order a Cardene drip due to possible stroke. He does not have any focal neurological deficits at this time, he is not a TPA candidate due to his vague presentation EXAM: Head CT without contrast. HISTORY: Altered mental status. Falls. TECHNIQUE: Computed tomographic images of the head were obtained without contrast. *One or more of the following individualized dose reduction techniques were uti lized for this examination: 1. Automated exposure control. 2. Adjustment of the mA and/or kV according to patient size. 3. Use of iterative reconstruction technique. COMPARISON: 04/16/2021. FINDINGS: There is decreased attenuation within the left frontal lobe. There is also slight asymmetric decreased aeration within the left temporal lobe. The superimposed on several areas of hypodensity which are stable compared to the prior study. There is no mass effect or midline shift. There is no hemorrhage. T here is an incidental cavum septum pellucidum. There is opacification of the visualized left maxillary sinus. There is a small amount of fluid within the mastoid air cells. There is no suspicious calvarial lesion. IMPRESSION: 1. Decreased attenuation within the left frontal and temporal lobes. This can be seen with acute or subacute infarction. Given the age of the patient, the po ssibility of changes due to demyelination is not excluded. This can be better assessed with MRI. 2. Subtle areas of hypodensity within the cerebral white matter, a nonspecific finding which can be seen with chronic small vessel disease and demyelinating di sease. Once again, MRI can better characterize this finding. 3. No hemorrhage. Findings were discussed with Dr. Addison in the ED at 1500 hours on 06/10/2021. PROCEDURE: PORTABLE CHEST 1V XR CHEST 1V CLINICAL INDICATIONS: Shortness of breath. Comparison: March 20, 2021. Findings: Mild bilateral interstitial pulmonary edema seen. Small bilateral pleural effusions are seen. No pneumothorax is evident. Heart size is enlarged but unchanged. The pulmonary vasculature, mediastinum and both will are unremarkable. IMPRESSION: Mild CHF. Electronically signed by: Juan Miguel John MD (06/10/2021 2:52 PM) Departure Departure Impression: Primary Impression: Hypertensive emergency Additional Impression: Brain lesion Disposition: ADMITTED INPATIENT Admitting Physician: JANA Mckee) Condition: STABLE Referrals: NO PCP (PCP) BETI ADDISON DO Jun 10, 2021 14:43
[2021-06-10] MEDS ORDERED: LABETALOL 20 MG/4 ML DISP.SYRIN. IVP ONE (14:45)
[2021-06-10] MEDS ORDERED: FUROSEMIDE 40 MG TABLET. PO ONE (14:45)
--- NOTE | 2021-06-10 14:55 | RAD ---
XR CHEST 1V CLINICAL INDICATIONS: Shortness of breath. Comparison: March 20, 2021. Findings: Mild bilateral interstitial pulmonary edema seen. Small bilateral pleural effusions are see n. No pneumothorax is evident. Heart size is enlarged but unchanged. The pulmonary vasculature, media stinum and both will are unremarkable. IMPRESSION: Mild CHF. Electronically signed by: Juan Miguel John MD (06/10/2021 2:52 PM) [id number]
--- NOTE | 2021-06-10 15:05 | RAD ---
EXAM: Head CT without contrast. HISTORY: Altered mental status. Falls. TECHNIQUE: Computed tomographic images of the head were obtained without contrast. *One or more of the following individualized dose reduction techniques were utilized for this examina tion: 1. Automated exposure control. 2. Adjustment of the mA and/or kV according to patient size. 3. Use of iterative reconstruction technique. COMPARISON: 04/16/2021. FINDINGS: There is decreased attenuation within the left frontal lobe. There is also slight asymmetri c decreased aeration within the left temporal lobe. The superimposed on several areas of hypodensity which are stable compared to the prior study. There is no mass effect or midline shift. There is no h emorrhage. There is an incidental cavum septum pellucidum. There is opacification of the visualized l eft maxillary sinus. There is a small amount of fluid within the mastoid air cells. There is no suspi cious calvarial lesion. IMPRESSION: 1. Decreased attenuation within the left frontal and temporal lobes. This can be seen with acute or s ubacute infarction. Given the age of the patient, the possibility of changes due to demyelination is not excluded. This can be better assessed with MRI. 2. Subtle areas of hypodensity within the cerebral white matter, a nonspecific finding which can be s een with chronic small vessel disease and demyelinating disease. Once again, MRI can better character ize this finding. 3. No hemorrhage. Findings were discussed with Dr. Addison in the ED at 1500 hours on 06/10/2021. FOR INTERNAL CODING PURPOSES RESULT CODE: (C) Electronically signed by: Lacy Rae MD (06/10/2021 3:02 PM) [id number]
[2021-06-10 15:18] LABS: BASO # 0.1 x10^3/uL (0.0-0.2); BASO % 1 % (0-3); EOS # 0.1 x10^3/uL (0.0-0.7); EOS % 1 % (0-3); HEMATOCRIT 40.3 % (39.0-53.0); HEMOGLOBIN 13.5 g/dL (13.0-17.5); LYMPH # 1.8 x10^3/uL (1.0-4.8); LYMPH % 16 % (24-48); MEAN CORPUSCULAR HEMOGLOBIN 28 pg (25-35); MEAN CORPUSCULAR HGB CONC 34 g/dL (31-37); MEAN CORPUSCULAR VOLUME 82 fL (79-100); MONO # 0.9 x10^3/uL (0.0-1.1); MONO % 8 % (0-9); NEUT # 8.2 x10^3/uL (1.8-7.7); NEUT % 74 % (31-73); PLATELET COUNT 368 x10^3/uL (140-400); RED CELL DISTRIBUTION WIDTH 17.4 % (11.5-14.5); WHITE BLOOD COUNT 11.1 x10^3/uL (4.0-11.0)
[2021-06-10 15:20] LABS: BILIRUBIN,URINE NEGATIVE (NEG); CLARITY,URINE CLEAR; COLOR,URINE YELLOW; NITRITE,URINE NEGATIVE (NEG); PH,URINE 6.5 (<5.0-8.0); PROTEIN,URINE >=300 mg/dL (NEG-TRACE)
[2021-06-10 15:27] LABS: BARBITURATES NEG (NEG); BENZODIAZEPINES NEG (NEG); CANNABINOIDS POS (NEG); COCAINE NEG (NEG); METHADONE NEG (NEG); OPIATES NEG (NEG); PHENCYCLIDINE NEG (NEG)
[2021-06-10 15:28] LABS: BACTERIA,URINE 0 /HPF (0-FEW); RBC,URINE 0 /HPF (0-2); WBC,URINE 0 /HPF (0-4)
[2021-06-10 15:30] LABS: AMPHETAMINE/METHAMPHETAMINE NEG (NEG)
[2021-06-10] MEDS ORDERED: IOHEXOL 350 MG/ML 100 ML VIAL. IV ONE (15:30)
[2021-06-10] MEDS ORDERED: CONTRAST GIVEN. MC PRN (15:30)
[2021-06-10] MEDS ORDERED: IV NORMAL SALINE 1000ML BAG 1,000 ML IV ONE (15:30)
[2021-06-10 15:49] LABS: CALCIUM 8.7 mg/dL (8.5-10.1); CREATININE 1.1 mg/dL (0.7-1.3); GFR 73.8; POTASSIUM 3.8 mmol/L (3.5-5.1)
--- NOTE | 2021-06-10 15:54 | RAD ---
EXAM: Head and neck CT angiogram with intravenous contrast. HISTORY: Suspected stroke. Mental status changes. Falls. TECHNIQUE: Computed tomographic images of the head and neck were obtained following the administratio n of intravenous contrast. 3-dimensional images were reconstructed. *One or more of the following individualized dose reduction techniques were utilized for this examina tion: 1. Automated exposure control. 2. Adjustment of the mA and/or kV according to patient size. 3. Use of iterative reconstruction technique. COMPARISON: Noncontrast head CT obtained on the same date. FINDINGS: The visualized aortic arch is normal in caliber. There is a common origin of the right inno minate and left common carotid arteries, a normal aortic arch branching variant. There is intimal thi ckening involving the proximal arch great vessels, without evidence of hemodynamically significant st enosis. The carotid bifurcations are widely patent. The internal carotid arteries are widely patent. The anterior, middle and posterior cerebral arteries are widely patent. There is a patent anterior co mmunicating artery. The posterior communicating arteries are likely hypoplastic or absent. The basila r artery is widely patent. There is suggestion of a small fenestration within the basilar artery, pos sibly due to volume averaging of adjacent distal vertebral arteries. The vertebral arteries are widel y patent. There is no pneumothorax. There is mild central bronchial wall thickening and left suprahilar groundg lass opacity. There are a few prominent mediastinal lymph nodes. For reference purposes, there is a r ight paratracheal lymph node measuring 1.5 cm. There is no neck lymphadenopathy. There is no mass effect or midline shift. There is no hydrocephalus. There is decreased attenuation w ithin the left frontal and temporal lobes. This better characterized on the noncontrast CT obtained o n the same date. There is an incidental cavum septum pellucidum. The orbits are unremarkable. There i s complete opacification of the left maxillary sinus and majority of the left ethmoid sinus due to ch ronic sinusitis. There are right maxillary sinus mucous retention cysts. There are periapical lucenci es and caries involving multiple mandibular and maxillary molars. There is fluid within the bilateral mastoid air cells. There are degenerative changes involving the cervical spine. There is no severe f oraminal or central canal stenosis. IMPRESSION: 1. No evidence of hemodynamically significant stenosis or arterial occlusion. 2. Subtle decreased attenuation within the left frontal and temporal lobes. This is better characteri zed on the noncontrast head CT obtained on the same date. The possibility of acute or subacute infarc tion or demyelination is not excluded. This can be better assessed with MRI. 3. Central bronchial wall thickening, a finding which can be seen with bronchitis. There is also nons pecific left suprahilar groundglass opacity due to atelectasis or interstitial infiltrate. This is st able compared to the CT performed 04/16/2021. 4. Prominent mediastinal lymph nodes, also stable compared to the prior CT. Please refer to the prior CT report for characterization of this finding. PQRS Compliance Statement - Stenosis calculations for CT, MR and conventional angiography are based u kelsey measurement of the distal ICA diameter in accordance with the NASCET methodology. Stenosis calcu lations for carotid ultrasound studies are derived from validated velocity criteria which are known t o correlate with the NASCET methodology. Electronically signed by: Lacy Rae MD (06/10/2021 3:52 PM) [id number]
[2021-06-10 15:55] LABS: ALBUMIN 2.6 g/dL (3.4-5.0); ALBUMIN/GLOBULIN RATIO 0.7 (1.0-1.7); MAGNESIUM 2.1 mg/dL (1.8-2.4); TOTAL BILIRUBIN 0.4 mg/dL (0.2-1.0); TOTAL PROTEIN 6.2 g/dL (6.4-8.2)
[2021-06-10] MEDS ORDERED: ONDANSETRON PF 4 MG/2 ML VIAL. IVP PRN (17:15)
[2021-06-10] MEDS ORDERED: ACETAMINOPHEN 325 MG TABLET. PO PRN (17:15)
[2021-06-10] MEDS ORDERED: FUROSEMIDE 40 MG/4 ML VIAL. IVP ONE (20:30)
--- NOTE | 2021-06-10 20:45 | PDOC1 ---
History and Physical Date of Service: DOS: DATE: 06/10/21 TIME: 20:40 Chief Complaint: Problems: (1) Hypertensive emergency (2) Brain lesion (3) Headache (4) Person under investigation for COVID-19 History of Present Illness: HPI: Patient is a 40-year-old white male presenting today due to several day history of dyspnea on exertion and lower extremity swelling. Patient was seen here in early April for similar presentation was found to be notably hypertensive thus was prescribed antihypertensives although never took him. He initially did okay however over the past week is having worsening problems with his breathing. Appears echo was performed at last presentation with a normal ejection fraction. Was some left ventricular hypertrophy however. On presentation to the emergency room patient blood pressure was gently lowered. Imaging labs were consistent with possible CHF exacerbation. He was denying chest pain when I was evaluating him. Interestingly the patient is reporting new onset visual hallucinations for the past 4 to 5 days. Patient says he cannot remember the episodes but from what his mother describes them to as he will just be staring off in a random corner and talking to things that are not there. Does admit to occasional marijuana use. Denies any new medication, new drug use, recent illnesses, sick contacts, recent travel. Past Medical/Surgical History: PMH/PSH: Hypertension Allergies: Allergies: Coded Allergies: No Known Drug Allergies (Unverified , 12/17/15) Family History: Family History: Hypertension Social History: Social History: Occasional marijuana alcohol user; daily smoker Current Medications: Current Medications Current Medications Furosemide (Lasix) 40 mg 1X ONCE PO Last administered on 06/10/21at 15:35; Start 06/10/21 at 14:45; Stop 06/10/21 at 14:46; Status DC Labetalol HCl (Normodyne Iv Push) 20 mg 1X ONCE IVP Last administered on 06/10/21at 15:36; Start 06/10/21 at 14:45; Stop 06/10/21 at 14:46; Status DC Sodium Chloride 1,000 ml @ 1,000 mls/hr 1X ONCE IV Last administered on 06/10/21at 15:35; Start 06/10/21 at 15:30; Stop 06/10/21 at 16:29; Status DC Iohexol (Omnipaque 350 Mg/ml) 90 ml 1X ONCE IV Last administered on 06/10/21at 15:26; Start 06/10/21 at 15:30; Stop 06/10/21 at 15:31; Status DC Info (CONTRAST GIVEN -- Rx MONITORING) 1 each PRN DAILY PRN MC SEE COMMENTS; Start 06/10/21 at 15:30; Stop 06/12/21 at 15:29 Ondansetron HCl (Zofran) 4 mg PRN Q8HRS PRN IVP NAUSEA/VOMITING; Start 06/10/21 at 17:15; Stop 06/11/21 at 17:14 Acetaminophen (Tylenol) 650 mg PRN Q4HRS PRN PO FEVER > 100.3'F; Start 06/10/21 at 17:15; Stop 06/11/21 at 17:14 Amlodipine Besylate (Norvasc) 5 mg 1X ONCE PO Last administered on 06/10/21at 18:46; Start 06/10/21 at 18:00; Stop 06/10/21 at 18:01; Status DC Furosemide (Lasix) 40 mg 1X ONCE IVP ; Start 06/10/21 at 20:30; Stop 06/10/21 at 20:31; Status DC Enoxaparin Sodium (Lovenox 40mg Syringe) 40 mg Q24H SQ ; Start 06/10/21 at 20:30 Amlodipine Besylate (Norvasc) 10 mg DAILY PO ; Start 06/11/21 at 09:00; Status UNV Atorvastatin Calcium (Lipitor) 20 mg QHS PO ; Start 06/10/21 at 21:00; Status UNV Carvedilol (Coreg) 25 mg BIDWMEALS PO ; Start 06/11/21 at 08:00; Status UNV Active Scripts Active Carvedilol (Carvedilol) 12.5 Mg Tablet 25 Mg PO BIDWMEALS 30 Days Hydralazine Hcl 50 Mg Tablet 50 Mg PO [id number] 30 Days Amlodipine Besylate 10 Mg Tablet 10 Mg PO DAILY 90 Days Atorvastatin Calcium 20 Mg Tablet 20 Mg PO QHS 90 Days ROS: Review of Systems Review of System Negative unless noted in HPI Physical Exam: Vital Signs: Vital Signs Date Time Temp Pulse Resp B/P (MAP) Pulse Ox O2 Delivery O2 Flow Rate FiO2 06/10/21 18:56 96 245/128 (167) 94 Nasal Cannula 06/10/21 18:41 2.0 824/21 14:18 98.1 20 98.1 Physcial Exam: GEN: No apparent distress. Alert and oriented HEENT: Normal cephalic, atraumatic, external auditory canals are patent EYES: Extraocular muscles are intact, pupil are equally round and reactive to light and accommodation MUSCULOSKELETAL: Well developed , well nourished, good range of motion ENDOCRINE: No thyromegaly was palpated LYMPHATICS: No cervical chain or axillary nodes were noted HEMATOPOIETIC: No bruising NECK: Supple, no JVD, no thyromegaly was noted LUNGS: Some decreased air entry in the bibasilar segments HEART: RRR, S1, S2 present. Peripheral pulses intact, no obvious murmurs noted ABDOMEN: Soft, nontender. Positive bowel sounds, no organomegaly, normal bowel sounds EXTREMITIES: Without clubbing, cyanosis, or edema. Pedal pulses intact. NEUROLOGIC: Normal speech and tone. A&O x 3, moves all extremities, no obvious focal deficits PSYCHIATRIC: Normal affect, normal mood. Stable SKIN: No ulcerations or rashes, good skin turgor, no jaundice VASCULAR: Good capillary refill, neurovascular bundle appears to be intact Labs: Labs: Laboratory Tests Test 06/10/21 14:40 06/10/21 15:05 06/10/21 17:34 Urine Collection Type Unknown Urine Color Yellow Urine Clarity Clear Urine pH 6.5 (<5.0-8.0) Urine Specific [place] 1.010 (1.000-1.030) Urine Protein >=300 mg/dL (NEG-TRACE) Urine Glucose (UA) Negative mg/dL (NEG) Urine Ketones (Stick) Negative mg/dL (NEG) Urine Blood Small (NEG) Urine Nitrite Negative (NEG) Urine Bilirubin Negative (NEG) Urine Urobilinogen Dipstick 1.0 mg/dL (0.2 mg/dL) Urine Leukocyte Esterase Negative (NEG) Urine RBC 0 /HPF (0-2) Urine WBC 0 /HPF (0-4) Urine Bacteria 0 /HPF (0-FEW) Urine Opiates Screen Neg (NEG) Urine Methadone Screen Neg (NEG) Urine Barbiturates Neg (NEG) Urine Phencyclidine Screen Neg (NEG) Urine Amphetamine/Methamphetamine Neg (NEG) Urine Benzodiazepines Screen Neg (NEG) Urine Cocaine Screen Neg (NEG) Urine Cannabinoids Screen Pos (NEG) Urine Ethyl Alcohol Neg (NEG) White Blood Count 11.1 x10^3/uL (4.0-11.0) Red Blood Count 4.90 x10^6/uL (4.30-5.70) Hemoglobin 13.5 g/dL (13.0-17.5) Hematocrit 40.3 % (39.0-53.0) Mean Corpuscular Volume 82 fL (79-100) Mean Corpuscular Hemoglobin 28 pg (25-35) Mean Corpuscular Hemoglobin Concent 34 g/dL (31-37) Red Cell Distribution Width 17.4 % (11.5-14.5) Platelet Count 368 x10^3/uL (140-400) Neutrophils (%) (Auto) 74 % (31-73) Lymphocytes (%) (Auto) 16 % (24-48) Monocytes (%) (Auto) 8 % (0-9) Eosinophils (%) (Auto) 1 % (0-3) Basophils (%) (Auto) 1 % (0-3) Neutrophils # (Auto) 8.2 x10^3/uL (1.8-7.7) Lymphocytes # (Auto) 1.8 x10^3/uL (1.0-4.8) Monocytes # (Auto) 0.9 x10^3/uL (0.0-1.1) Eosinophils # (Auto) 0.1 x10^3/uL (0.0-0.7) Basophils # (Auto) 0.1 x10^3/uL (0.0-0.2) Sodium Level 138 mmol/L (136-145) Potassium Level 3.8 mmol/L (3.5-5.1) Chloride Level 102 mmol/L (98-107) Carbon Dioxide Level 30 mmol/L (21-32) Anion Gap 6 (6-14) Blood Urea Nitrogen 16 mg/dL (8-26) Creatinine 1.1 mg/dL (0.7-1.3) Estimated GFR (Cockcroft-Gault) 73.8 BUN/Creatinine Ratio 15 (6-20) Glucose Level 124 mg/dL (70-99) Calcium Level 8.7 mg/dL (8.5-10.1) Magnesium Level 2.1 mg/dL (1.8-2.4) Total Bilirubin 0.4 mg/dL (0.2-1.0) Aspartate Amino Transf (AST/SGOT) 41 U/L (15-37) Alanine Aminotransferase (ALT/SGPT) 57 U/L (16-63) Alkaline Phosphatase 160 U/L (46-116) Troponin I Quantitative 0.128 ng/mL (0.000-0.055) 0.116 ng/mL (0.000-0.055) [id number]-Type Natriuretic Peptide 7324 pg/mL (0-124) Total Protein 6.2 g/dL (6.4-8.2) Albumin 2.6 g/dL (3.4-5.0) Albumin/Globulin Ratio 0.7 (1.0-1.7) Thyroid Stimulating Hormone (TSH) 2.642 uIU/mL (0.358-3.74) Laboratory Tests Test 06/10/21 14:40 06/10/21 15:05 06/10/21 17:34 Urine Collection Type Unknown Urine Color Yellow Urine Clarity Clear Urine pH 6.5 (<5.0-8.0) Urine Specific [place] 1.010 (1.000-1.030) Urine Protein >=300 mg/dL (NEG-TRACE) Urine Glucose (UA) Negative mg/dL (NEG) Urine Ketones (Stick) Negative mg/dL (NEG) Urine Blood Small (NEG) Urine Nitrite Negative (NEG) Urine Bilirubin Negative (NEG) Urine Urobilinogen Dipstick 1.0 mg/dL (0.2 mg/dL) Urine Leukocyte Esterase Negative (NEG) Urine RBC 0 /HPF (0-2) Urine WBC 0 /HPF (0-4) Urine Bacteria 0 /HPF (0-FEW) Urine Opiates Screen Neg (NEG) Urine Methadone Screen Neg (NEG) Urine Barbiturates Neg (NEG) Urine Phencyclidine Screen Neg (NEG) Urine Amphetamine/Methamphetamine Neg (NEG) Urine Benzodiazepines Screen Neg (NEG) Urine Cocaine Screen Neg (NEG) Urine Cannabinoids Screen Pos (NEG) Urine Ethyl Alcohol Neg (NEG) White Blood Count 11.1 x10^3/uL (4.0-11.0) Red Blood Count 4.90 x10^6/uL (4.30-5.70) Hemoglobin 13.5 g/dL (13.0-17.5) Hematocrit 40.3 % (39.0-53.0) Mean Corpuscular Volume 82 fL (79-100) Mean Corpuscular Hemoglobin 28 pg (25-35) Mean Corpuscular Hemoglobin Concent 34 g/dL (31-37) Red Cell Distribution Width 17.4 % (11.5-14.5) Platelet Count 368 x10^3/uL (140-400) Neutrophils (%) (Auto) 74 % (31-73) Lymphocytes (%) (Auto) 16 % (24-48) Monocytes (%) (Auto) 8 % (0-9) Eosinophils (%) (Auto) 1 % (0-3) Basophils (%) (Auto) 1 % (0-3) Neutrophils # (Auto) 8.2 x10^3/uL (1.8-7.7) Lymphocytes # (Auto) 1.8 x10^3/uL (1.0-4.8) Monocytes # (Auto) 0.9 x10^3/uL (0.0-1.1) Eosinophils # (Auto) 0.1 x10^3/uL (0.0-0.7) Basophils # (Auto) 0.1 x10^3/uL (0.0-0.2) Sodium Level 138 mmol/L (136-145) Potassium Level 3.8 mmol/L (3.5-5.1) Chloride Level 102 mmol/L (98-107) Carbon Dioxide Level 30 mmol/L (21-32) Anion Gap 6 (6-14) Blood Urea Nitrogen 16 mg/dL (8-26) Creatinine 1.1 mg/dL (0.7-1.3) Estimated GFR (Cockcroft-Gault) 73.8 BUN/Creatinine Ratio 15 (6-20) Glucose Level 124 mg/dL (70-99) Calcium Level 8.7 mg/dL (8.5-10.1) Magnesium Level 2.1 mg/dL (1.8-2.4) Total Bilirubin 0.4 mg/dL (0.2-1.0) Aspartate Amino Transf (AST/SGOT) 41 U/L (15-37) Alanine Aminotransferase (ALT/SGPT) 57 U/L (16-63) Alkaline Phosphatase 160 U/L (46-116) Troponin I Quantitative 0.128 ng/mL (0.000-0.055) 0.116 ng/mL (0.000-0.055) [id number]-Type Natriuretic Peptide 7324 pg/mL (0-124) Total Protein 6.2 g/dL (6.4-8.2) Albumin 2.6 g/dL (3.4-5.0) Albumin/Globulin Ratio 0.7 (1.0-1.7) Thyroid Stimulating Hormone (TSH) 2.642 uIU/mL (0.358-3.74) Assessment/Plan Assessment/Plan Patient is a 40-year-old presenting for hypertensive emergency Hypertensive emergency, CHF (unspecified type) exacerbation, visual hallucinations, abnormal head imaging, cannabis use -Patient presented with blood pressure in the 220s systolic. Also appeared fluid overloaded given labetalol and Lasix -Blood pressure initially improved but did increase again -Starting Cardene drip -Given an abnormal head imaging, will not lower blood pressure in excessive amount overnight -CT scans showing possibility of demyelinating and/or small vessel disease, recommending MRI for further characterization, neurology consult -We will give a one-time Lasix dose tonight. Cardiology consulted -We will hold off on ordering echo as patient just had one in April -Resume previously prescribed Norvasc, Lipitor, Coreg -Cardiac diet -Monitor fluid intake -DVT prophylaxis Justifications for Admission Other Justification DEE WHITTAKER MD Jun 10, 2021 20:45
[2021-06-10] MEDS: ENOXAPARIN 40 MG/0.4 ML SYRINGE. SQ SCH (21:09)
[2021-06-11] MEDS: ATORVASTATIN CALCIUM 20 MG TABLET PO SCH ×2 (00:35→22:25)
[2021-06-11] MEDS ORDERED: CARVEDILOL 12.5 MG TABLET. PO SCH (08:00)
[2021-06-11] MEDS: CARVEDILOL 12.5 MG TABLET. PO SCH ×2 (08:14→22:27)
--- NOTE | 2021-06-11 08:47 | PDOC2 ---
NEUROLOGY CONSULT Date of Service DOS: DATE: 06/11/21 TIME: 08:39 Reason for Consult Reason for Consult: Altered mental status Referring Physician Referring Physician: Dr. Correa Source Source: Chart review, Patient History of Present Illness History of Present Illness The patient is a 40-year-old right-handed male who came to the emergency department yesterday with dyspnea on exertion, lower extremity swelling, he has known heart failure, uncontrolled hypertension with noncompliance, and sleep apnea. For the past week he has had spells where he zones out and stares, talking to imaginary objects He does not remember these. He has never had any convulsive activity. He has had no major head injury. There is no known history of stroke but CT scan show abnormalities as reviewed below. He has never been evaluated for sleep apnea. Initial blood pressure in the emergency department was 224/142, this has been treated. Past Medical History Cardiovascular: CHF, HTN Pulmonary: Asthma Past Surgical History Past Surgical History: Other (Tympanostomy tubes, adenoidectomy) Family History Family History: Hypertension Social History Social History Single, lawn worker, half a pack of cigarettes per day, 3 marijuana joints a day, no alcohol Current Medications Current Medications Current Medications Furosemide (Lasix) 40 mg 1X ONCE PO Last administered on 06/10/21at 15:35; Start 06/10/21 at 14:45; Stop 06/10/21 at 14:46; Status DC Labetalol HCl (Normodyne Iv Push) 20 mg 1X ONCE IVP Last administered on 06/10/21at 15:36; Start 06/10/21 at 14:45; Stop 06/10/21 at 14:46; Status DC Sodium Chloride 1,000 ml @ 1,000 mls/hr 1X ONCE IV Last administered on 06/10/21at 15:35; Start 06/10/21 at 15:30; Stop 06/10/21 at 16:29; Status DC Iohexol (Omnipaque 350 Mg/ml) 90 ml 1X ONCE IV Last administered on 06/10/21at 15:26; Start 06/10/21 at 15:30; Stop 06/10/21 at 15:31; Status DC Info (CONTRAST GIVEN -- Rx MONITORING) 1 each PRN DAILY PRN MC SEE COMMENTS; Start 06/10/21 at 15:30; Stop 06/12/21 at 15:29 Ondansetron HCl (Zofran) 4 mg PRN Q8HRS PRN IVP NAUSEA/VOMITING; Start 06/10/21 at 17:15; Stop 06/11/21 at 17:14 Acetaminophen (Tylenol) 650 mg PRN Q4HRS PRN PO FEVER > 100.3'F; Start 06/10/21 at 17:15; Stop 06/11/21 at 17:14 Amlodipine Besylate (Norvasc) 5 mg 1X ONCE PO Last administered on 06/10/21at 18:46; Start 06/10/21 at 18:00; Stop 06/10/21 at 18:01; Status DC Furosemide (Lasix) 40 mg 1X ONCE IVP Last administered on 06/10/21at 21:09; Start 06/10/21 at 20:30; Stop 06/10/21 at 20:31; Status DC Enoxaparin Sodium (Lovenox 40mg Syringe) 40 mg Q24H SQ Last administered on 06/10/21at 21:09; Start 06/10/21 at 20:30 Amlodipine Besylate (Norvasc) 10 mg DAILY PO ; Start 06/11/21 at 09:00 Atorvastatin Calcium (Lipitor) 20 mg QHS PO Last administered on 06/11/21at 00:35; Start 06/10/21 at 21:00 Carvedilol (Coreg) 25 mg BIDWMEALS PO ; Start 06/11/21 at 08:00; Stop 06/10/21 at 20:41; Status DC Carvedilol (Coreg) 12.5 mg BIDWMEALS PO Last administered on 06/11/21at 08:14; Start 06/11/21 at 08:00 Nicardipine HCl 50 mg/Sodium Chloride 250 ml @ 25 mls/hr CONT PRN IV SEE I/O RECORD Last administered on 06/11/21at 04:54; Start 06/10/21 at 20:45 Active Scripts Active Carvedilol (Carvedilol) 12.5 Mg Tablet 25 Mg PO BIDWMEALS 30 Days Hydralazine Hcl 50 Mg Tablet 50 Mg PO [id number] 30 Days Amlodipine Besylate 10 Mg Tablet 10 Mg PO DAILY 90 Days Atorvastatin Calcium 20 Mg Tablet 20 Mg PO QHS 90 Days Allergies Allergies: Coded Allergies: No Known Drug Allergies (Unverified , 12/17/15) ROS Review of System Negative for fever, chills, weight loss, shortness of breath, chest pain, indigestion, hematochezia, melena, and dysuria. Full 14-point review of systems is negative. Physical Exam Physical Examination General: Well-developed, well-nourished white male in no acute distress. As I walked into the room he is snoring and I observe apnea HEENT: Normocephalic andatraumatic. Tympanic membranes clear.Temporal arteriespulsatile and nontender.Fundoscopic exam unremarkable Neck: Supple without bruit, no meningismus Musculoskeletal: Stability:see neurologic. Gait exam:see neurologic. Tone:see neurologic.Strength:see neurologic. Neurological: Mental Status:Alerts easily, intact, orientation, memory, attention span/concentration, language, fund of knowledge normal. Cranial Nerves:Pupils equal and reactive to light, extraocular movements areintact, visual wiggins are full to confrontation. Facial sensation is normal. There is no facial asymmetry. Vestibulo-ocular reflex is intact. Palate elevates and tongue protrudes in midline. All other cranial related problems are negative except as mentioned before.Reflexes:2+ and symmetric with flexor plantar responses. Motor:5/5 strength with normal tone and bulk. Coordination:Finger-nose finger and [id number] testing are normal. Rapid alternating movements and fine finger movements are intact. Gait:Normal, including tandem. Sensory:Normal pinprick, vibration, light touch, proprioception. Vitals VITALS Vital Signs Date Time Temp Pulse Resp B/P (MAP) Pulse Ox O2 Delivery O2 Flow Rate FiO2 06/11/21 08:28 98 169/77 (107) 96 Nasal Cannula 3.0 06/11/21 00:36 98.1 98.1 06/10/21 14:18 20 Labs Labs Laboratory Tests Test 06/10/21 14:40 06/10/21 15:05 06/10/21 17:34 06/10/21 20:38 Urine Collection Type Unknown Urine Color Yellow Urine Clarity Clear Urine pH 6.5 (<5.0-8.0) Urine Specific [place] 1.010 (1.000-1.030) Urine Protein >=300 mg/dL (NEG-TRACE) Urine Glucose (UA) Negative mg/dL (NEG) Urine Ketones (Stick) Negative mg/dL (NEG) Urine Blood Small (NEG) Urine Nitrite Negative (NEG) Urine Bilirubin Negative (NEG) Urine Urobilinogen Dipstick 1.0 mg/dL (0.2 mg/dL) Urine Leukocyte Esterase Negative (NEG) Urine RBC 0 /HPF (0-2) Urine WBC 0 /HPF (0-4) Urine Bacteria 0 /HPF (0-FEW) Urine Opiates Screen Neg (NEG) Urine Methadone Screen Neg (NEG) Urine Barbiturates Neg (NEG) Urine Phencyclidine Screen Neg (NEG) Urine Amphetamine/Methamphetamine Neg (NEG) Urine Benzodiazepines Screen Neg (NEG) Urine Cocaine Screen Neg (NEG) Urine Cannabinoids Screen Pos (NEG) Urine Ethyl Alcohol Neg (NEG) White Blood Count 11.1 x10^3/uL (4.0-11.0) Red Blood Count 4.90 x10^6/uL (4.30-5.70) Hemoglobin 13.5 g/dL (13.0-17.5) Hematocrit 40.3 % (39.0-53.0) Mean Corpuscular Volume 82 fL (79-100) Mean Corpuscular Hemoglobin 28 pg (25-35) Mean Corpuscular Hemoglobin Concent 34 g/dL (31-37) Red Cell Distribution Width 17.4 % (11.5-14.5) Platelet Count 368 x10^3/uL (140-400) Neutrophils (%) (Auto) 74 % (31-73) Lymphocytes (%) (Auto) 16 % (24-48) Monocytes (%) (Auto) 8 % (0-9) Eosinophils (%) (Auto) 1 % (0-3) Basophils (%) (Auto) 1 % (0-3) Neutrophils # (Auto) 8.2 x10^3/uL (1.8-7.7) Lymphocytes # (Auto) 1.8 x10^3/uL (1.0-4.8) Monocytes # (Auto) 0.9 x10^3/uL (0.0-1.1) Eosinophils # (Auto) 0.1 x10^3/uL (0.0-0.7) Basophils # (Auto) 0.1 x10^3/uL (0.0-0.2) Sodium Level 138 mmol/L (136-145) Potassium Level 3.8 mmol/L (3.5-5.1) Chloride Level 102 mmol/L (98-107) Carbon Dioxide Level 30 mmol/L (21-32) Anion Gap 6 (6-14) Blood Urea Nitrogen 16 mg/dL (8-26) Creatinine 1.1 mg/dL (0.7-1.3) Estimated GFR (Cockcroft-Gault) 73.8 BUN/Creatinine Ratio 15 (6-20) Glucose Level 124 mg/dL (70-99) Calcium Level 8.7 mg/dL (8.5-10.1) Magnesium Level 2.1 mg/dL (1.8-2.4) Total Bilirubin 0.4 mg/dL (0.2-1.0) Aspartate Amino Transf (AST/SGOT) 41 U/L (15-37) Alanine Aminotransferase (ALT/SGPT) 57 U/L (16-63) Alkaline Phosphatase 160 U/L (46-116) Troponin I Quantitative 0.128 ng/mL (0.000-0.055) 0.116 ng/mL (0.000-0.055) 0.107 ng/mL (0.000-0.055) XR-Afy-V-Type Natriuretic Peptide 7324 pg/mL (0-124) Total Protein 6.2 g/dL (6.4-8.2) Albumin 2.6 g/dL (3.4-5.0) Albumin/Globulin Ratio 0.7 (1.0-1.7) Thyroid Stimulating Hormone (TSH) 2.642 uIU/mL (0.358-3.74) Laboratory Tests Test 06/10/21 14:40 06/10/21 15:05 06/10/21 17:34 06/10/21 20:38 Urine Collection Type Unknown Urine Color Yellow Urine Clarity Clear Urine pH 6.5 (<5.0-8.0) Urine Specific [place] 1.010 (1.000-1.030) Urine Protein >=300 mg/dL (NEG-TRACE) Urine Glucose (UA) Negative mg/dL (NEG) Urine Ketones (Stick) Negative mg/dL (NEG) Urine Blood Small (NEG) Urine Nitrite Negative (NEG) Urine Bilirubin Negative (NEG) Urine Urobilinogen Dipstick 1.0 mg/dL (0.2 mg/dL) Urine Leukocyte Esterase Negative (NEG) Urine RBC 0 /HPF (0-2) Urine WBC 0 /HPF (0-4) Urine Bacteria 0 /HPF (0-FEW) Urine Opiates Screen Neg (NEG) Urine Methadone Screen Neg (NEG) Urine Barbiturates Neg (NEG) Urine Phencyclidine Screen Neg (NEG) Urine Amphetamine/Methamphetamine Neg (NEG) Urine Benzodiazepines Screen Neg (NEG) Urine Cocaine Screen Neg (NEG) Urine Cannabinoids Screen Pos (NEG) Urine Ethyl Alcohol Neg (NEG) White Blood Count 11.1 x10^3/uL (4.0-11.0) Red Blood Count 4.90 x10^6/uL (4.30-5.70) Hemoglobin 13.5 g/dL (13.0-17.5) Hematocrit 40.3 % (39.0-53.0) Mean Corpuscular Volume 82 fL (79-100) Mean Corpuscular Hemoglobin 28 pg (25-35) Mean Corpuscular Hemoglobin Concent 34 g/dL (31-37) Red Cell Distribution Width 17.4 % (11.5-14.5) Platelet Count 368 x10^3/uL (140-400) Neutrophils (%) (Auto) 74 % (31-73) Lymphocytes (%) (Auto) 16 % (24-48) Monocytes (%) (Auto) 8 % (0-9) Eosinophils (%) (Auto) 1 % (0-3) Basophils (%) (Auto) 1 % (0-3) Neutrophils # (Auto) 8.2 x10^3/uL (1.8-7.7) Lymphocytes # (Auto) 1.8 x10^3/uL (1.0-4.8) Monocytes # (Auto) 0.9 x10^3/uL (0.0-1.1) Eosinophils # (Auto) 0.1 x10^3/uL (0.0-0.7) Basophils # (Auto) 0.1 x10^3/uL (0.0-0.2) Sodium Level 138 mmol/L (136-145) Potassium Level 3.8 mmol/L (3.5-5.1) Chloride Level 102 mmol/L (98-107) Carbon Dioxide Level 30 mmol/L (21-32) Anion Gap 6 (6-14) Blood Urea Nitrogen 16 mg/dL (8-26) Creatinine 1.1 mg/dL (0.7-1.3) Estimated GFR (Cockcroft-Gault) 73.8 BUN/Creatinine Ratio 15 (6-20) Glucose Level 124 mg/dL (70-99) Calcium Level 8.7 mg/dL (8.5-10.1) Magnesium Level 2.1 mg/dL (1.8-2.4) Total Bilirubin 0.4 mg/dL (0.2-1.0) Aspartate Amino Transf (AST/SGOT) 41 U/L (15-37) Alanine Aminotransferase (ALT/SGPT) 57 U/L (16-63) Alkaline Phosphatase 160 U/L (46-116) Troponin I Quantitative 0.128 ng/mL (0.000-0.055) 0.116 ng/mL (0.000-0.055) 0.107 ng/mL (0.000-0.055) PP-Xsg-W-Type Natriuretic Peptide 7324 pg/mL (0-124) Total Protein 6.2 g/dL (6.4-8.2) Albumin 2.6 g/dL (3.4-5.0) Albumin/Globulin Ratio 0.7 (1.0-1.7) Thyroid Stimulating Hormone (TSH) 2.642 uIU/mL (0.358-3.74) Images Images Head CT without contrast. HISTORY: Altered mental status. Falls. TECHNIQUE: Computed tomographic images of the head were obtained without contrast. *One or more of the following individualized dose reduction techniques were utilized for this examination: 1. Automated exposure control. 2. Adjustment of the mA and/or kV according to patient size. 3. Use of iterative reconstruction technique. COMPARISON: 04/16/2021. FINDINGS: There is decreased attenuation within the left frontal lobe. There is also slight asymmetric decreased aeration within the left temporal lobe. The superimposed on several areas of hypodensity which are stable compared to the prior study. There is no mass effect or midline shift. There is no hemorrhage. There is an incidental cavum septum pellucidum. There is opacification of the visualized left maxillary sinus. There is a small amount of fluid within the mastoid air cells. There is no suspicious calvarial lesion. IMPRESSION: 1. Decreased attenuation within the left frontal and temporal lobes. This can be seen with acute or subacute infarction. Given the age of the patient, the possibility of changes due to demyelination is not excluded. This can be better assessed with MRI. 2. Subtle areas of hypodensity within the cerebral white matter, a nonspecific finding which can be seen with chronic small vessel disease and demyelinating disease. Once again, MRI can better characterize this finding. 3. No hemorrhage. ADDENDUM #1 Addendum: As noted in the findings section of the report, there is chronic appearing left maxillary and ethmoid sinus disease. There are also multiple dental caries and periapical lucencies surrounding the roots of the bilateral mandibular and maxillary molars. Correlate with dental exam findings. Electronically signed by: Lacy Rae MD (06/10/2021 4:08 PM) [id number] ORIGINAL REPORT EXAM: Head and neck CT angiogram with intravenous contrast. HISTORY: Suspected stroke. Mental status changes. Falls. TECHNIQUE: Computed tomographic images of the head and neck were obtained following the administration of intravenous contrast. 3-dimensional images were reconstructed. *One or more of the following individualized dose reduction techniques were utilized for this examination: 1. Automated exposure control. 2. Adjustment of the mA and/or kV according to patient size. 3. Use of iterative reconstruction technique. COMPARISON: Noncontrast head CT obtained on the same date. FINDINGS: The visualized aortic arch is normal in caliber. There is a common origin of the right innominate and left common carotid arteries, a normal aortic arch branching variant. There is intimal thickening involving the proximal arch great vessels, without evidence of hemodynamically significant stenosis. The carotid bifurcations are widely patent. The internal carotid arteries are widely patent. The anterior, middle and posterior cerebral arteries are widely patent. There is a patent anterior communicating artery. The posterior communicating arteries are likely hypoplastic or absent. The basilar artery is widely patent. There is suggestion of a small fenestration within the basilar artery, possibly due to volume averaging of adjacent distal vertebral arteries. The vertebral arteries are widely patent. There is no pneumothorax. There is mild central bronchial wall thickening and left suprahilar groundglass opacity. There are a few prominent mediastinal lymph nodes. For reference purposes, there is a right paratracheal lymph node measuring 1.5 cm. There is no neck lymphadenopathy. There is no mass effect or midline shift. There is no hydrocephalus. There is decreased attenuation within the left frontal and temporal lobes. This better characterized on the noncontrast CT obtained on the same date. There is an incidental cavum septum pellucidum. The orbits are unremarkable. There is complete opacification of the left maxillary sinus and majority of the left ethmoid sinus due to chronic sinusitis. There are right maxillary sinus mucous retention cysts. There are periapical lucencies and caries involving multiple mandibular and maxillary molars. There is fluid within the bilateral mastoid air cells. There are degenerative changes involving the cervical spine. There is no severe foraminal or central canal stenosis. IMPRESSION: 1. No evidence of hemodynamically significant stenosis or arterial occlusion. 2. Subtle decreased attenuation within the left frontal and temporal lobes. This is better characterized on the noncontrast head CT obtained on the same date. The possibility of acute or subacute infarction or demyelination is not excluded. This can be better assessed with MRI. 3. Central bronchial wall thickening, a finding which can be seen with bronchitis. There is also nonspecific left suprahilar groundglass opacity due to atelectasis or interstitial infiltrate. This is stable compared to the CT performed 04/16/2021. 4. Prominent mediastinal lymph nodes, also stable compared to the prior CT. Please refer to the prior CT report for characterization of this finding. Assessment/Plan Assessment/Plan Impression: Spells of unresponsiveness, well-explained by the hypertension, sleep apnea, and marijuana use, I doubt that he is having new onset of partial-complex seizures. It would be unusual to be able to speak during these episodes if they were seizures. Hypertensive urgency Observed sleep apnea Decreased attenuation within the left frontal and temporal lobes on head CT related to hypertension-related cerebrovascular disease. No evidence of an acute stroke or central nervous system neoplasm Recommendations: Treatment of hypertension I told the patient needs to abstain from tobacco and marijuana I will see if we can do a sleep study Hold on electroencephalogram and other seizure-related studies. Thank you for letting me help with the patient's care. REINA DUDLEY MD Jun 11, 2021 08:47
[2021-06-11] MEDS ORDERED: hydrALAZINE 20 MG/ML VIAL. IVP PRN (10:45)
--- NOTE | 2021-06-11 10:53 | PDOC2 ---
RAFFI GRAY FITTER'S ASSISTANT 06/11/21 1053: CARDIAC CONSULT DATE OF CONSULT Date of Consult DATE: 06/11/21 TIME: 10:32 REASON FOR CONSULT Reason for Consult: Hypertensive urgency REFERRING PHYSICIAN Referring Physician: Dr. Addison SOURCE Source: Chart review, Patient HISTORY OF PRESENT ILLNESS HISTORY OF PRESENT ILLNESS This is a 40 yo male who presented with worsening shortness of breath and LE edema over the past several weeks. Mom reports he was hallucinating at home. Patient reports fatigue, just generally not feeling well. Blood pressure significantly elevated upon arrival, which prompted this consult. Was seen by our service a little over a month ago for same. Was started on antiHTN therapy and BP normalized. Unfortunately, patient left AMA and did not get medications filled. PAST MEDICAL HISTORY Cardiovascular: CHF, HTN, Hyperlipidemia Pulmonary: Asthma Renal/: Other (Acute renal failure, Other (Left TOÑITO)) PAST SURGICAL HISTORY Past Surgical History Tympanostomy tubes, adenoidectomy FAMILY HISTORY Family History: Family History Unknown SOCIAL HISTORY Smoke: <1 pack per day ALCOHOL: none Drugs: Marijuana Lives: with Family CURRENT MEDICATIONS CURRENT MEDICATIONS Current Medications Medications (Trade) Dose Ordered Sig/Terrell Route PRN Reason Start Time Stop Time Status Last Admin Dose Admin Furosemide (Lasix) 40 mg 1X ONCE PO 06/10/21 14:45 06/10/21 14:46 DC 06/10/21 15:35 Labetalol HCl (Normodyne Iv Push) 20 mg 1X ONCE IVP 06/10/21 14:45 06/10/21 14:46 DC 06/10/21 15:36 Sodium Chloride 1,000 ml @ 1,000 mls/hr 1X ONCE IV 06/10/21 15:30 06/10/21 16:29 DC 06/10/21 15:35 Iohexol (Omnipaque 350 Mg/ml) 90 ml 1X ONCE IV 06/10/21 15:30 06/10/21 15:31 DC 06/10/21 15:26 Amlodipine Besylate (Norvasc) 5 mg 1X ONCE PO 06/10/21 18:00 06/10/21 18:01 DC 06/10/21 18:46 Furosemide (Lasix) 40 mg 1X ONCE IVP 06/10/21 20:30 06/10/21 20:31 DC 06/10/21 21:09 Enoxaparin Sodium (Lovenox 40mg Syringe) 40 mg Q24H SQ 06/10/21 20:30 06/10/21 21:09 Atorvastatin Calcium (Lipitor) 20 mg QHS PO 06/10/21 21:00 06/11/21 00:35 Carvedilol (Coreg) 12.5 mg BIDWMEALS PO 06/11/21 08:00 06/11/21 08:14 Nicardipine HCl 50 mg/Sodium Chloride 250 ml @ 25 mls/hr CONT PRN IV SEE I/O RECORD 06/10/21 20:45 06/11/21 04:54 ALLERGIES ALLERGIES: Coded Allergies: No Known Drug Allergies (Unverified , 12/17/15) ROS Review of System 14 point ROS conducted with pertinent positives noted above in HPI PHYSICAL EXAM General: Alert, Oriented X3, Cooperative, No acute distress HEENT: Atraumatic Lungs: Other (diminished bases) Heart: Regular rate Abdomen: Soft, No tenderness Extremities: Normal pulses, Other (1+ bilateral LE edema ) Skin: No significant lesion Neuro: Sensation intact Psych/Mental Status: Mood NL MUSCULOSKELETAL: No deformity VITALS/I&O VITALS/I&O: Vital Signs Date Time Temp Pulse Resp B/P (MAP) Pulse Ox O2 Delivery O2 Flow Rate FiO2 06/11/21 08:28 98 169/77 (107) 96 Nasal Cannula 3.0 06/11/21 00:36 98.1 98.1 06/10/21 14:18 20 I & O 06/10/21 06/10/21 06/11/21 15:00 23:00 07:00 Intake Total 1000 ml 30 ml Output Total 1600 ml 2050 ml Balance -600 ml -2020 ml LABS Lab: Laboratory Tests Test 06/10/21 14:40 06/10/21 15:05 06/10/21 17:34 06/10/21 20:38 Urine Collection Type Unknown Urine Color Yellow Urine Clarity Clear Urine pH 6.5 (<5.0-8.0) Urine Specific [place] 1.010 (1.000-1.030) Urine Protein >=300 mg/dL (NEG-TRACE) Urine Glucose (UA) Negative mg/dL (NEG) Urine Ketones (Stick) Negative mg/dL (NEG) Urine Blood Small (NEG) Urine Nitrite Negative (NEG) Urine Bilirubin Negative (NEG) Urine Urobilinogen Dipstick 1.0 mg/dL (0.2 mg/dL) Urine Leukocyte Esterase Negative (NEG) Urine RBC 0 /HPF (0-2) Urine WBC 0 /HPF (0-4) Urine Bacteria 0 /HPF (0-FEW) Urine Opiates Screen Neg (NEG) Urine Methadone Screen Neg (NEG) Urine Barbiturates Neg (NEG) Urine Phencyclidine Screen Neg (NEG) Urine Amphetamine/Methamphetamine Neg (NEG) Urine Benzodiazepines Screen Neg (NEG) Urine Cocaine Screen Neg (NEG) Urine Cannabinoids Screen Pos (NEG) Urine Ethyl Alcohol Neg (NEG) White Blood Count 11.1 x10^3/uL (4.0-11.0) H Red Blood Count 4.90 x10^6/uL (4.30-5.70) Hemoglobin 13.5 g/dL (13.0-17.5) Hematocrit 40.3 % (39.0-53.0) Mean Corpuscular Volume 82 fL (79-100) Mean Corpuscular Hemoglobin 28 pg (25-35) Mean Corpuscular Hemoglobin Concent 34 g/dL (31-37) Red Cell Distribution Width 17.4 % (11.5-14.5) H Platelet Count 368 x10^3/uL (140-400) Neutrophils (%) (Auto) 74 % (31-73) H Lymphocytes (%) (Auto) 16 % (24-48) L Monocytes (%) (Auto) 8 % (0-9) Eosinophils (%) (Auto) 1 % (0-3) Basophils (%) (Auto) 1 % (0-3) Neutrophils # (Auto) 8.2 x10^3/uL (1.8-7.7) H Lymphocytes # (Auto) 1.8 x10^3/uL (1.0-4.8) Monocytes # (Auto) 0.9 x10^3/uL (0.0-1.1) Eosinophils # (Auto) 0.1 x10^3/uL (0.0-0.7) Basophils # (Auto) 0.1 x10^3/uL (0.0-0.2) Sodium Level 138 mmol/L (136-145) Potassium Level 3.8 mmol/L (3.5-5.1) Chloride Level 102 mmol/L (98-107) Carbon Dioxide Level 30 mmol/L (21-32) Anion Gap 6 (6-14) Blood Urea Nitrogen 16 mg/dL (8-26) Creatinine 1.1 mg/dL (0.7-1.3) Estimated GFR (Cockcroft-Gault) 73.8 BUN/Creatinine Ratio 15 (6-20) Glucose Level 124 mg/dL (70-99) H Calcium Level 8.7 mg/dL (8.5-10.1) Magnesium Level 2.1 mg/dL (1.8-2.4) Total Bilirubin 0.4 mg/dL (0.2-1.0) Aspartate Amino Transferase (AST) 41 U/L (15-37) H Alanine Aminotransferase (ALT) 57 U/L (16-63) Alkaline Phosphatase 160 U/L (46-116) H Troponin I Quantitative 0.128 ng/mL (0.000-0.055) 0.116 ng/mL (0.000-0.055) 0.107 ng/mL (0.000-0.055) [place]-Hhh-Q-Type Natriuretic Peptide 7324 pg/mL (0-124) H Total Protein 6.2 g/dL (6.4-8.2) L Albumin 2.6 g/dL (3.4-5.0) L Albumin/Globulin Ratio 0.7 (1.0-1.7) L Thyroid Stimulating Hormone (TSH) 2.642 uIU/mL (0.358-3.74) Laboratory Tests 06/10/21 15:05 Laboratory Tests 06/10/21 15:05 ECHOCARDIOGRAM ECHOCARDIOGRAM <Conclusion> The left ventricular systolic function is normal. The Ejection Fraction is 50-55%. There is normal LV segmental wall motion. There is moderate concentric left ventricular hypertrophy. Transmitral Doppler flow pattern is Grade II-pseudonormal filling dynamics. Trace mitral regurgitation. Trace tricuspid regurgitation with an estimated PAP of 39 mmHg. There is no evidence of significant pericardial effusion. DATE: 04/17/21 [id number] ASSESSMENT/PLAN ASSESSMENT/PLAN 1. Acute respiratory failure with CHF 2. Acute on chronic diastolic CHF; Recent echo with preserved LV systolic function. S/p IV diuresis. Most probably secondary to #3. 3. Hypertensive urgency; on Cardene gtt. 4. Mild troponin elevation; peak 0.12. Most probably type II, demand ischemia in setting of above. 5. Encephalopathy; CT head with decreased attenuation within the left frontal and temporal lobes 6. Hyperlipidemia; statin 7. Probable KENNETH 8. Tobaccoism, marijuana use; discussed/encouraged cessation 9. Noncompliance Recommendations Diuresis Blood pressure control; add lisinopril in addition to Coreg and amlodipine Titrate off Cardene Hydralazine IV PRN ASA therapy Outpatient ischemic evaluation Discussed/encouraged importance of compliance Supportive care NILES DOSS MD 06/11/21 1709: CARDIAC CONSULT ASSESSMENT/PLAN ASSESSMENT/PLAN Patient seen and examined. Agree with ELECTION WATCHER's assessment and plan. Accelerated hypertension secondary to noncompliance Agree with adding lisinopril to Coreg/amlodipine and wean Cardene off as tolerated Acute on chronic diastolic heart failure precipitated by uncontrolled hypertension, better compensated with diuresis Recent 2D echo showed normal LV systolic function Slight troponin elevation probably demand ischemia Plan ischemic evaluation as an outpatient Thank you for your consult RAFFI GRAY APRN Jun 11, 2021 10:53 NILES DOSS MD Jun 11, 2021 17:09
[2021-06-11] MEDS: LISINOPRIL 20 MG TABLET PO SCH (11:30)
[2021-06-11] MEDS: ASPIRIN ENTERIC COATED 81 MG TABLET.DR. PO SCH (11:59)
--- NOTE | 2021-06-11 14:16 | PDOC ---
[employer] PROGRESS NOTE Date of Service DOS: DATE: 06/11/21 TIME: 14:13 Chief Complaint Chief Complaint SOB, HTN History of Present Illness History of Present Illness Patient is a 40-year-old white male presenting today due to several day history of dyspnea on exertion and lower extremity swelling. Patient was seen here in early April for similar presentation was found to be notably hypertensive thus was prescribed antihypertensives although never took him. He initially did okay however over the past week is having worsening problems with his breathing. Appears echo was performed at last presentation with a normal ejection fraction. Was some left ventricular hypertrophy however. On presentation to the emergency room patient blood pressure was gently lowered. Imaging labs were consistent with possible CHF exacerbation. He was denying chest pain when I was evaluating him. Interestingly the patient is reporting new onset visual hallucinations for the past 4 to 5 days. Patient says he cannot remember the episodes but from what his mother describes them to as he will just be staring off in a random corner and talking to things that are not there. Does admit to occasional marijuana use. Denies any new medication, new drug use, recent illnesses, sick contacts, recent travel. 06/11 Vitals/I&O Vitals/I&O: Vital Signs Date Time Temp Pulse Resp B/P (MAP) Pulse Ox O2 Delivery O2 Flow Rate FiO2 06/11/21 12:28 86 152/87 (108) 97 Nasal Cannula 3.0 06/11/21 00:36 98.1 98.1 06/10/21 14:18 20 I & O 06/10/21 06/10/21 06/11/21 15:00 23:00 07:00 Intake Total 1000 ml 30 ml Output Total 1600 ml 2050 ml Balance -600 ml -2020 ml Physical Exam General: Alert, Oriented X3, Cooperative Heart: Regular rate, Normal S1, Normal S2 Lungs: Clear Abdomen: Normal bowel sounds, Soft, No tenderness Extremities: Normal pulses, Other (Bilateral edema) Labs Labs: Laboratory Tests Test 06/10/21 14:40 06/10/21 15:05 06/10/21 15:50 06/10/21 17:34 Urine Collection Type Unknown Urine Color Yellow Urine Clarity Clear Urine pH 6.5 (<5.0-8.0) Urine Specific [place] 1.010 (1.000-1.030) Urine Protein >=300 mg/dL (NEG-TRACE) Urine Glucose (UA) Negative mg/dL (NEG) Urine Ketones (Stick) Negative mg/dL (NEG) Urine Blood Small (NEG) Urine Nitrite Negative (NEG) Urine Bilirubin Negative (NEG) Urine Urobilinogen Dipstick 1.0 mg/dL (0.2 mg/dL) Urine Leukocyte Esterase Negative (NEG) Urine RBC 0 /HPF (0-2) Urine WBC 0 /HPF (0-4) Urine Bacteria 0 /HPF (0-FEW) Urine Opiates Screen Neg (NEG) Urine Methadone Screen Neg (NEG) Urine Barbiturates Neg (NEG) Urine Phencyclidine Screen Neg (NEG) Urine Amphetamine/Methamphetamine Neg (NEG) Urine Benzodiazepines Screen Neg (NEG) Urine Cocaine Screen Neg (NEG) Urine Cannabinoids Screen Pos (NEG) Urine Ethyl Alcohol Neg (NEG) White Blood Count 11.1 x10^3/uL (4.0-11.0) Red Blood Count 4.90 x10^6/uL (4.30-5.70) Hemoglobin 13.5 g/dL (13.0-17.5) Hematocrit 40.3 % (39.0-53.0) Mean Corpuscular Volume 82 fL (79-100) Mean Corpuscular Hemoglobin 28 pg (25-35) Mean Corpuscular Hemoglobin Concent 34 g/dL (31-37) Red Cell Distribution Width 17.4 % (11.5-14.5) Platelet Count 368 x10^3/uL (140-400) Neutrophils (%) (Auto) 74 % (31-73) Lymphocytes (%) (Auto) 16 % (24-48) Monocytes (%) (Auto) 8 % (0-9) Eosinophils (%) (Auto) 1 % (0-3) Basophils (%) (Auto) 1 % (0-3) Neutrophils # (Auto) 8.2 x10^3/uL (1.8-7.7) Lymphocytes # (Auto) 1.8 x10^3/uL (1.0-4.8) Monocytes # (Auto) 0.9 x10^3/uL (0.0-1.1) Eosinophils # (Auto) 0.1 x10^3/uL (0.0-0.7) Basophils # (Auto) 0.1 x10^3/uL (0.0-0.2) Sodium Level 138 mmol/L (136-145) Potassium Level 3.8 mmol/L (3.5-5.1) Chloride Level 102 mmol/L (98-107) Carbon Dioxide Level 30 mmol/L (21-32) Anion Gap 6 (6-14) Blood Urea Nitrogen 16 mg/dL (8-26) Creatinine 1.1 mg/dL (0.7-1.3) Estimated GFR (Cockcroft-Gault) 73.8 BUN/Creatinine Ratio 15 (6-20) Glucose Level 124 mg/dL (70-99) Calcium Level 8.7 mg/dL (8.5-10.1) Magnesium Level 2.1 mg/dL (1.8-2.4) Total Bilirubin 0.4 mg/dL (0.2-1.0) Aspartate Amino Transf (AST/SGOT) 41 U/L (15-37) Alanine Aminotransferase (ALT/SGPT) 57 U/L (16-63) Alkaline Phosphatase 160 U/L (46-116) Troponin I Quantitative 0.128 ng/mL (0.000-0.055) 0.116 ng/mL (0.000-0.055) IN-Yml-M-Type Natriuretic Peptide 7324 pg/mL (0-124) Total Protein 6.2 g/dL (6.4-8.2) Albumin 2.6 g/dL (3.4-5.0) Albumin/Globulin Ratio 0.7 (1.0-1.7) Thyroid Stimulating Hormone (TSH) 2.642 uIU/mL (0.358-3.74) SARS-CoV-2 RNA (SHAHID) Negative (Negative) Test 06/10/21 20:38 Troponin I Quantitative 0.107 ng/mL (0.000-0.055) Assessment and Plan Assessmemt and Plan Problems Medical Problems: (1) Brain lesion Status: Acute (2) Hypertensive emergency Status: Acute Patient is a 40-year-old presenting for hypertensive emergency Hypertensive emergency, CHF (unspecified type) exacerbation, visual hallucinations, abnormal head imaging, cannabis use -Patient presented with blood pressure in the 220s systolic. Also appeared fluid overloaded given labetalol and Lasix -Neuro consult for abnormal head imaging, -CT scans showing possibility of demyelinating and/or small vessel disease, neurology consulted -Cardiology consulted -We will hold off on ordering echo as patient just had one in April -Resume previously prescribed Norvasc, Lipitor, Coreg -Cardiac diet -Monitor fluid intake -DVT prophylaxis Comment Review of Relevant I have reviewed the following items keily (where applicable) has been applied. Medications: Current Medications Medications (Trade) Dose Ordered Sig/Terrell Route PRN Reason Start Time Stop Time Status Last Admin Dose Admin Furosemide (Lasix) 40 mg 1X ONCE PO 06/10/21 14:45 06/10/21 14:46 DC 06/10/21 15:35 Labetalol HCl (Normodyne Iv Push) 20 mg 1X ONCE IVP 06/10/21 14:45 06/10/21 14:46 DC 06/10/21 15:36 Sodium Chloride 1,000 ml @ 1,000 mls/hr 1X ONCE IV 06/10/21 15:30 06/10/21 16:29 DC 06/10/21 15:35 Iohexol (Omnipaque 350 Mg/ml) 90 ml 1X ONCE IV 06/10/21 15:30 06/10/21 15:31 DC 06/10/21 15:26 Amlodipine Besylate (Norvasc) 5 mg 1X ONCE PO 06/10/21 18:00 06/10/21 18:01 DC 06/10/21 18:46 Furosemide (Lasix) 40 mg 1X ONCE IVP 06/10/21 20:30 06/10/21 20:31 DC 06/10/21 21:09 Enoxaparin Sodium (Lovenox 40mg Syringe) 40 mg Q24H SQ 06/10/21 20:30 06/10/21 21:09 Atorvastatin Calcium (Lipitor) 20 mg QHS PO 06/10/21 21:00 06/11/21 00:35 Carvedilol (Coreg) 12.5 mg BIDWMEALS PO 06/11/21 08:00 06/11/21 08:14 Nicardipine HCl 50 mg/Sodium Chloride 250 ml @ 25 mls/hr CONT PRN IV SEE I/O RECORD 06/10/21 20:45 06/11/21 04:54 Aspirin (Ecotrin) 81 mg DAILYWBKFT PO 06/11/21 11:30 06/11/21 11:59 Justifications for Admission Other Justification DEE WHITTAKER MD Jun 11, 2021 14:16
[2021-06-11] MEDS ORDERED: LISINOPRIL 20 MG TABLET PO ONE (15:15)
[2021-06-11] MEDS ORDERED: FUROSEMIDE 20 MG/2 ML VIAL. IVP ONE (15:30)
[2021-06-11] MEDS ORDERED: POTASSIUM CHLORIDE 20 MEQ TABLET.ER. PO ONE (15:30)
[2021-06-11 15:45] LABS: CALCIUM 8.6 mg/dL (8.5-10.1); CREATININE 1.3 mg/dL (0.7-1.3); GFR 60.8; POTASSIUM 3.5 mmol/L (3.5-5.1)
[2021-06-11 22:00] VITALS: BP 159/84
[2021-06-11] MEDS: ENOXAPARIN 40 MG/0.4 ML SYRINGE. SQ SCH (22:24)
[2021-06-11 23:06] VITALS: BP 157/84
[2021-06-12] VITALS (10 sets, daily range): BP systolic 135–160; BP diastolic 65–100
[2021-06-12] MEDS: CARVEDILOL 12.5 MG TABLET. PO SCH (09:11)
[2021-06-12] MEDS: ASPIRIN ENTERIC COATED 81 MG TABLET.DR. PO SCH (09:11)
[2021-06-12] MEDS: LISINOPRIL 20 MG TABLET PO SCH (09:13)
--- NOTE | 2021-06-12 10:29 | NUR ---
SS following for discharge planning. SS reviewed pt chart and discussed with pt RN. Pt is from home and is currently requiring oxygen at three liters nasal canula. COVID19 negative. Self pay. Pt positive for Marijuana and reporting hallucinations. [facility] team referral made for assessment and recommendations. Cardiology and Neurology following. Six minute walk ordered. Pt has no home oxygen. SS will continue to follow for discharge planning. Addendum: 06/12/21 at 1251 by LATA GU SS Anand from [facility] team met with pt. Pt provided with resources for I, [employer], and [employer]. Physician notified.
--- NOTE | 2021-06-12 11:03 | PDOC ---
PROGRESS NOTES Date of Service DATE: 06/12/21 TIME: 11:00 Assessment Problems Medical Problems: (1) Brain lesion Status: Acute (2) Hypertensive emergency Status: Acute Spells of unresponsiveness, well-explained by the hypertension, sleep apnea, and marijuana use (positive urine drug screen), I doubt that he is having new onset of partial-complex seizures. It would be unusual to be able to speak during these episodes if they were seizures. Hypertensive urgency Observed sleep apnea Decreased attenuation within the left frontal and temporal lobes on head CT related to hypertension-related cerebrovascular disease. No evidence of an acute stroke or central nervous system neoplasm. He does not have a "brain lesion." Plan Treatment of hypertension Abstain from tobacco and marijuana Outpatient sleep study, financial barriers Hold on electroencephalogram and other seizure-related studies. Aspirin and statin Okay for discharge Follow-up with me as needed, I will communicate with him if he does the sleep study Subjective Feels much better, says he is now highly motivated to comply with medication Objective Vital Signs Date Time Temp Pulse Resp B/P (MAP) Pulse Ox O2 Delivery O2 Flow Rate FiO2 06/12/21 10:52 97.3 90 19 142/84 (103) 100 Nasal Cannula 4.0 97.3 Intake and Output 06/12/21 07:00 Intake Total 600 ml Output Total 1800 ml Balance -1200 ml Intake Oral 600 ml Output Urine Total 1800 ml PHYSICAL EXAM Alert. Oriented to time, place and person. PERRL. EOMI. CN: no focal findings. Muscle tone: normal. Muscle strength: 5/5 DTR: 2+ Plantar reflex: flexor Gait: not examined in bed. Sensory exam: no abnormal findings. No cerebellar signs elicited. Review of Relevant I have reviewed the following items keily (where applicable) has been applied. Labs Laboratory Tests Test 06/10/21 14:40 06/10/21 15:05 06/10/21 15:50 06/10/21 17:34 Urine Collection Type Unknown Urine Color Yellow Urine Clarity Clear Urine pH 6.5 (<5.0-8.0) Urine Specific [place] 1.010 (1.000-1.030) Urine Protein >=300 mg/dL (NEG-TRACE) Urine Glucose (UA) Negative mg/dL (NEG) Urine Ketones (Stick) Negative mg/dL (NEG) Urine Blood Small (NEG) Urine Nitrite Negative (NEG) Urine Bilirubin Negative (NEG) Urine Urobilinogen Dipstick 1.0 mg/dL (0.2 mg/dL) Urine Leukocyte Esterase Negative (NEG) Urine RBC 0 /HPF (0-2) Urine WBC 0 /HPF (0-4) Urine Bacteria 0 /HPF (0-FEW) Urine Opiates Screen Neg (NEG) Urine Methadone Screen Neg (NEG) Urine Barbiturates Neg (NEG) Urine Phencyclidine Screen Neg (NEG) Urine Amphetamine/Methamphetamine Neg (NEG) Urine Benzodiazepines Screen Neg (NEG) Urine Cocaine Screen Neg (NEG) Urine Cannabinoids Screen Pos (NEG) Urine Ethyl Alcohol Neg (NEG) White Blood Count 11.1 x10^3/uL (4.0-11.0) Red Blood Count 4.90 x10^6/uL (4.30-5.70) Hemoglobin 13.5 g/dL (13.0-17.5) Hematocrit 40.3 % (39.0-53.0) Mean Corpuscular Volume 82 fL (79-100) Mean Corpuscular Hemoglobin 28 pg (25-35) Mean Corpuscular Hemoglobin Concent 34 g/dL (31-37) Red Cell Distribution Width 17.4 % (11.5-14.5) Platelet Count 368 x10^3/uL (140-400) Neutrophils (%) (Auto) 74 % (31-73) Lymphocytes (%) (Auto) 16 % (24-48) Monocytes (%) (Auto) 8 % (0-9) Eosinophils (%) (Auto) 1 % (0-3) Basophils (%) (Auto) 1 % (0-3) Neutrophils # (Auto) 8.2 x10^3/uL (1.8-7.7) Lymphocytes # (Auto) 1.8 x10^3/uL (1.0-4.8) Monocytes # (Auto) 0.9 x10^3/uL (0.0-1.1) Eosinophils # (Auto) 0.1 x10^3/uL (0.0-0.7) Basophils # (Auto) 0.1 x10^3/uL (0.0-0.2) Sodium Level 138 mmol/L (136-145) Potassium Level 3.8 mmol/L (3.5-5.1) Chloride Level 102 mmol/L (98-107) Carbon Dioxide Level 30 mmol/L (21-32) Anion Gap 6 (6-14) Blood Urea Nitrogen 16 mg/dL (8-26) Creatinine 1.1 mg/dL (0.7-1.3) Estimated GFR (Cockcroft-Gault) 73.8 BUN/Creatinine Ratio 15 (6-20) Glucose Level 124 mg/dL (70-99) Hemoglobin A1c 6.0 % (4.8-5.6) Calcium Level 8.7 mg/dL (8.5-10.1) Magnesium Level 2.1 mg/dL (1.8-2.4) Total Bilirubin 0.4 mg/dL (0.2-1.0) Aspartate Amino Transf (AST/SGOT) 41 U/L (15-37) Alanine Aminotransferase (ALT/SGPT) 57 U/L (16-63) Alkaline Phosphatase 160 U/L (46-116) Troponin I Quantitative 0.128 ng/mL (0.000-0.055) 0.116 ng/mL (0.000-0.055) OF-Gar-V-Type Natriuretic Peptide 7324 pg/mL (0-124) Total Protein 6.2 g/dL (6.4-8.2) Albumin 2.6 g/dL (3.4-5.0) Albumin/Globulin Ratio 0.7 (1.0-1.7) Thyroid Stimulating Hormone (TSH) 2.642 uIU/mL (0.358-3.74) SARS-CoV-2 RNA (SHAHID) Negative (Negative) Test 06/10/21 20:38 06/11/21 15:20 Troponin I Quantitative 0.107 ng/mL (0.000-0.055) Sodium Level 140 mmol/L (136-145) Potassium Level 3.5 mmol/L (3.5-5.1) Chloride Level 102 mmol/L (98-107) Carbon Dioxide Level 33 mmol/L (21-32) Anion Gap 5 (6-14) Blood Urea Nitrogen 22 mg/dL (8-26) Creatinine 1.3 mg/dL (0.7-1.3) Estimated GFR (Cockcroft-Gault) 60.8 Glucose Level 106 mg/dL (70-99) Calcium Level 8.6 mg/dL (8.5-10.1) Laboratory Tests Test 06/11/21 15:20 Sodium Level 140 mmol/L (136-145) Potassium Level 3.5 mmol/L (3.5-5.1) Chloride Level 102 mmol/L (98-107) Carbon Dioxide Level 33 mmol/L (21-32) Anion Gap 5 (6-14) Blood Urea Nitrogen 22 mg/dL (8-26) Creatinine 1.3 mg/dL (0.7-1.3) Estimated GFR (Cockcroft-Gault) 60.8 Glucose Level 106 mg/dL (70-99) Calcium Level 8.6 mg/dL (8.5-10.1) Medications Current Medications Furosemide (Lasix) 40 mg 1X ONCE PO Last administered on 06/10/21at 15:35; Start 06/10/21 at 14:45; Stop 06/10/21 at 14:46; Status DC Labetalol HCl (Normodyne Iv Push) 20 mg 1X ONCE IVP Last administered on 06/10/21at 15:36; Start 06/10/21 at 14:45; Stop 06/10/21 at 14:46; Status DC Sodium Chloride 1,000 ml @ 1,000 mls/hr 1X ONCE IV Last administered on 06/10/21at 15:35; Start 06/10/21 at 15:30; Stop 06/10/21 at 16:29; Status DC Iohexol (Omnipaque 350 Mg/ml) 90 ml 1X ONCE IV Last administered on 06/10/21at 15:26; Start 06/10/21 at 15:30; Stop 06/10/21 at 15:31; Status DC Info (CONTRAST GIVEN -- Rx MONITORING) 1 each PRN DAILY PRN MC SEE COMMENTS; Start 06/10/21 at 15:30; Stop 06/12/21 at 15:29 Ondansetron HCl (Zofran) 4 mg PRN Q8HRS PRN IVP NAUSEA/VOMITING; Start 06/10/21 at 17:15; Stop 06/11/21 at 17:14; Status DC Acetaminophen (Tylenol) 650 mg PRN Q4HRS PRN PO FEVER > 100.3'F; Start 06/10/21 at 17:15; Stop 06/11/21 at 17:14; Status DC Amlodipine Besylate (Norvasc) 5 mg 1X ONCE PO Last administered on 06/10/21at 18:46; Start 06/10/21 at 18:00; Stop 06/10/21 at 18:01; Status DC Furosemide (Lasix) 40 mg 1X ONCE IVP Last administered on 06/10/21at 21:09; Start 06/10/21 at 20:30; Stop 06/10/21 at 20:31; Status DC Enoxaparin Sodium (Lovenox 40mg Syringe) 40 mg Q24H SQ Last administered on 06/11/21at 22:24; Start 06/10/21 at 20:30 Amlodipine Besylate (Norvasc) 10 mg DAILY PO Last administered on 06/12/21at 09:12; Start 06/11/21 at 09:00 Atorvastatin Calcium (Lipitor) 20 mg QHS PO Last administered on 06/11/21at 22:25; Start 06/10/21 at 21:00 Carvedilol (Coreg) 25 mg BIDWMEALS PO ; Start 06/11/21 at 08:00; Stop 06/10/21 at 20:41; Status DC Carvedilol (Coreg) 12.5 mg BIDWMEALS PO Last administered on 06/12/21at 09:11; Start 06/11/21 at 08:00 Nicardipine HCl 50 mg/Sodium Chloride 250 ml @ 25 mls/hr CONT PRN IV SEE I/O RECORD Last administered on 06/11/21at 15:22; Start 06/10/21 at 20:45 Aspirin (Ecotrin) 81 mg DAILYWBKFT PO Last administered on 06/12/21at 09:11; Start 06/11/21 at 11:30 Hydralazine HCl (Apresoline Inj) 10 mg PRN Q4HRS PRN IVP ELEVATED BP, SEE COMMENTS; Start 06/11/21 at 10:45 Lisinopril (Prinivil) 40 mg DAILY PO Last administered on 06/12/21at 09:13; Start 06/11/21 at 11:30 Furosemide (Lasix) 20 mg 1X ONCE IVP Last administered on 06/11/21at 15:13; Start 06/11/21 at 15:30; Stop 06/11/21 at 15:31; Status DC Potassium Chloride (Klor-Con) 20 meq 1X ONCE PO Last administered on 06/11/21at 15:11; Start 06/11/21 at 15:30; Stop 06/11/21 at 15:31; Status DC Lisinopril (Prinivil) 40 mg 1X ONCE PO Last administered on 06/11/21at 15:12; Start 06/11/21 at 15:15; Stop 06/11/21 at 15:16; Status DC Amlodipine Besylate (Norvasc) 10 mg 1X ONCE PO Last administered on 06/11/21at 15:12; Start 06/11/21 at 15:15; Stop 06/11/21 at 15:16; Status DC Active Scripts Active Carvedilol (Carvedilol) 12.5 Mg Tablet 25 Mg PO BIDWMEALS 30 Days Hydralazine Hcl 50 Mg Tablet 50 Mg PO [id number] 30 Days Amlodipine Besylate 10 Mg Tablet 10 Mg PO DAILY 90 Days Atorvastatin Calcium 20 Mg Tablet 20 Mg PO QHS 90 Days Vitals/I & O Vital Sign - Last 24 Hours 06/11/21 06/11/21 06/11/21 06/11/21 11:28 11:30 12:28 13:28 Pulse 71 84 86 86 B/P (MAP) 143/67 (92) 143/67 152/87 (108) 160/90 (113) Pulse Ox 95 97 91 O2 Delivery Nasal Cannula Nasal Cannula Nasal Cannula O2 Flow Rate 3.0 3.0 3.0 06/11/21 06/11/21 06/11/21 06/11/21 14:28 15:08 15:12 15:12 Pulse 88 96 80 89 B/P (MAP) 166/92 (116) 174/96 (122) 174/96 174/96 Pulse Ox 95 O2 Delivery Nasal Cannula Nasal Cannula O2 Flow Rate 3.0 3.0 06/11/21 06/11/21 06/11/21 06/11/21 15:23 15:28 16:28 17:50 Pulse 90 88 92 82 Resp 19 20 15 24 B/P (MAP) 175/80 (111) 195/85 (121) 169/70 (103) 172/88 (116) Pulse Ox 94 O2 Delivery Nasal Cannula Nasal Cannula Nasal Cannula Nasal Cannula O2 Flow Rate 3.0 3.0 3.0 8/25/21 06/11/21 06/11/21 06/11/21 19:05 19:13 21:14 22:00 Temp 98.0 98.0 Pulse 90 90 91 Resp 22 18 18 B/P (MAP) 160/80 (106) 160/80 (106) 146/87 (106) 159/84 (109) Pulse Ox 98 98 94 O2 Delivery Room Air Nasal Cannula Nasal Cannula O2 Flow Rate 3.0 3.0 3.0 06/11/21 06/11/21 06/11/21 06/12/21 22:27 23:02 23:06 00:00 Temp 98.0 98.0 Pulse 94 93 Resp 19 B/P (MAP) 159/84 157/84 (108) 160/72 (101) Pulse Ox 96 O2 Delivery Nasal Cannula Room Air O2 Flow Rate 3.0 06/12/21 06/12/21 06/12/21 06/12/21 01:00 02:00 02:39 03:00 Temp 98.0 98.0 Pulse 93 Resp 19 B/P (MAP) 159/81 (107) 140/89 (106) 148/79 (102) 135/65 (88) Pulse Ox 96 O2 Delivery Room Air 06/12/21 06/12/21 06/12/21 06/12/21 04:00 05:00 07:41 08:00 Temp 97.8 97.8 Pulse 73 Resp 19 B/P (MAP) 136/76 (96) 160/100 (120) 147/76 (99) Pulse Ox 95 O2 Delivery Room Air Nasal Cannula O2 Flow Rate 3.0 06/12/21 06/12/21 06/12/21 06/12/21 09:11 09:12 09:13 10:52 Temp 97.3 97.3 Pulse 73 73 73 90 Resp 19 B/P (MAP) 147/76 147/76 147/76 142/84 (103) Pulse Ox 100 O2 Delivery Nasal Cannula O2 Flow Rate 4.0 Intake and Output 06/11/21 06/11/21 06/12/21 15:00 23:00 07:00 Intake Total 300 ml 300 ml Output Total 1800 ml Balance -1500 ml 300 ml Justicifation of Admission Dx: Justifications for Admission: Justification of Admission Dx: Yes SD: Acute NSTEMI REINA DUDLEY MD Jun 12, 2021 11:03
[2021-06-12 12:02] LABS: BASO # 0.1 x10^3/uL (0.0-0.2); BASO % 1 % (0-3); EOS # 0.1 x10^3/uL (0.0-0.7); EOS % 1 % (0-3); HEMOGLOBIN 12.7 g/dL (13.0-17.5); LYMPH # 1.9 x10^3/uL (1.0-4.8); LYMPH % 17 % (24-48); MEAN CORPUSCULAR HEMOGLOBIN 27 pg (25-35); MEAN CORPUSCULAR HGB CONC 33 g/dL (31-37); MEAN CORPUSCULAR VOLUME 83 fL (79-100); MONO % 9 % (0-9); NEUT # 8.1 x10^3/uL (1.8-7.7); NEUT % 73 % (31-73); PLATELET COUNT 380 x10^3/uL (140-400); RED BLOOD COUNT 4.71 x10^6/uL (4.30-5.70); RED CELL DISTRIBUTION WIDTH 17.1 % (11.5-14.5); WHITE BLOOD COUNT 11.2 x10^3/uL (4.0-11.0)
[2021-06-12 12:20] LABS: CALCIUM 8.2 mg/dL (8.5-10.1); CREATININE 1.1 mg/dL (0.7-1.3); GFR 73.8; POTASSIUM 3.6 mmol/L (3.5-5.1)
--- NOTE | 2021-06-12 12:28 | PDOC ---
RAFFI GRAY TOWER LOADER OPERATOR 06/12/21 1228: CARDIO Progress Notes Date and Time Date of Service 06/12/21 Time of Evaluation 1150 Subjective Subjective: No Chest Pain, No shortness of breath, No Palpitations Vitals Vitals Vital Signs Date Time Temp Pulse Resp B/P (MAP) Pulse Ox O2 Delivery O2 Flow Rate FiO2 06/12/21 10:52 97.3 90 19 142/84 (103) 100 Nasal Cannula 4.0 97.3 Weight Weight [ ] Input and Output Intake and Output Intake and Output 06/12/21 07:00 Intake Total 600 ml Output Total 1800 ml Balance -1200 ml Intake Oral 600 ml Output Urine Total 1800 ml Laboratory Labs Laboratory Tests Test 06/11/21 15:20 06/12/21 11:19 Sodium Level 140 mmol/L (136-145) 138 mmol/L (136-145) Potassium Level 3.5 mmol/L (3.5-5.1) 3.6 mmol/L (3.5-5.1) Chloride Level 102 mmol/L (98-107) 101 mmol/L (98-107) Carbon Dioxide Level 33 mmol/L (21-32) 33 mmol/L (21-32) Anion Gap 5 (6-14) 4 (6-14) Blood Urea Nitrogen 22 mg/dL (8-26) 20 mg/dL (8-26) Creatinine 1.3 mg/dL (0.7-1.3) 1.1 mg/dL (0.7-1.3) Estimated GFR (Cockcroft-Gault) 60.8 73.8 Glucose Level 106 mg/dL (70-99) 124 mg/dL (70-99) Calcium Level 8.6 mg/dL (8.5-10.1) 8.2 mg/dL (8.5-10.1) White Blood Count 11.2 x10^3/uL (4.0-11.0) Red Blood Count 4.71 x10^6/uL (4.30-5.70) Hemoglobin 12.7 g/dL (13.0-17.5) Hematocrit 39.0 % (39.0-53.0) Mean Corpuscular Volume 83 fL (79-100) Mean Corpuscular Hemoglobin 27 pg (25-35) Mean Corpuscular Hemoglobin Concent 33 g/dL (31-37) Red Cell Distribution Width 17.1 % (11.5-14.5) Platelet Count 380 x10^3/uL (140-400) Neutrophils (%) (Auto) 73 % (31-73) Lymphocytes (%) (Auto) 17 % (24-48) Monocytes (%) (Auto) 9 % (0-9) Eosinophils (%) (Auto) 1 % (0-3) Basophils (%) (Auto) 1 % (0-3) Neutrophils # (Auto) 8.1 x10^3/uL (1.8-7.7) Lymphocytes # (Auto) 1.9 x10^3/uL (1.0-4.8) Monocytes # (Auto) 1.0 x10^3/uL (0.0-1.1) Eosinophils # (Auto) 0.1 x10^3/uL (0.0-0.7) Basophils # (Auto) 0.1 x10^3/uL (0.0-0.2) Physical Exam HEENT: Neck Supple W Full Motion Chest: Symmetric LUNGS: Clear to Auscultation Heart: RRR Abdomen: Soft N/T Extremities: No Edema Neurology: alert, oriented, follow commands Assessment Assessment 1. Acute respiratory failure with CHF 2. Acute on chronic diastolic CHF; Recent echo with preserved LV systolic function. S/p IV diuresis. Most probably secondary to #3. 3. Hypertensive urgency; off Cardene. better controlled 4. Mild troponin elevation; peak 0.12. Most probably type II, demand ischemia in setting of above. CP free 5. Encephalopathy; CT head with decreased attenuation within the left frontal and temporal lobes 6. Hyperlipidemia; statin 7. Probable KENNETH 8. Tobaccoism, marijuana use; discussed/encouraged cessation 9. Noncompliance Recommendations Blood pressure control; increase Coreg Home monitoring 2Gma Na diet ASA therapy Discussed/encouraged importance of compliance Consider outpatient ischemic evaluation Supportive care Justicifation of Admission Dx: Justifications for Admission: Justification of Admission Dx: Yes MO: Acute NSTEMI NILES DOSS MD 06/13/21 0540: CARDIO Progress Notes Assessment Assessment Patient seen and examined. Agree with ONLINE COMMUNICATIONS MANAGER's assessment and plan. Accelerated hypertension secondary to noncompliance Agree with increasing coreg dose for better BP control. Continue other meds Acute on chronic diastolic heart failure precipitated by uncontrolled hypertension, better compensated with diuresis Recent 2D echo showed normal LV systolic function Slight troponin elevation probably demand ischemia Plan ischemic evaluation as an outpatient RAFFI GRAY APRN Jun 12, 2021 12:28 NILES DOSS MD Jun 13, 2021 05:40
[2021-06-12] MEDS ORDERED: CARVEDILOL 12.5 MG TABLET. PO ONE (12:30)
[2021-06-12] MEDS ORDERED: ASPI-886 PO (12:40)
[2021-06-12] MEDS ORDERED: CARV12.511 PO (12:40)
[2021-06-12] MEDS ORDERED: LISI-130 PO (12:40)
--- NOTE | 2021-06-12 15:58 | PDOC3 ---
Discharge Summary Visit Information Date of Admission: Jun 10, 2021 Date of Discharge: Jun 12, 2021 Admitting Diagnosis: HTN emergency Final Diagnosis Problems Medical Problems: (1) Brain lesion Status: Acute (2) Hypertensive emergency Status: Acute Brief Hospital Course Allergies Allergies Coded Allergies Type Severity Reaction Last Updated Verified No Known Drug Allergies 12/17/15 No Vital Signs Vital Signs Date Time Temp Pulse Resp B/P (MAP) Pulse Ox O2 Delivery O2 Flow Rate FiO2 06/12/21 12:43 90 142/84 06/12/21 10:52 97.3 19 100 Nasal Cannula 4.0 97.3 Lab Results Laboratory Tests Test 06/10/21 17:34 06/10/21 20:38 06/11/21 15:20 06/12/21 11:19 Troponin I Quantitative 0.116 ng/mL (0.000-0.055) 0.107 ng/mL (0.000-0.055) Sodium Level 140 mmol/L (136-145) 138 mmol/L (136-145) Potassium Level 3.5 mmol/L (3.5-5.1) 3.6 mmol/L (3.5-5.1) Chloride Level 102 mmol/L (98-107) 101 mmol/L (98-107) Carbon Dioxide Level 33 mmol/L (21-32) 33 mmol/L (21-32) Anion Gap 5 (6-14) 4 (6-14) Blood Urea Nitrogen 22 mg/dL (8-26) 20 mg/dL (8-26) Creatinine 1.3 mg/dL (0.7-1.3) 1.1 mg/dL (0.7-1.3) Estimated GFR (Cockcroft-Gault) 60.8 73.8 Glucose Level 106 mg/dL (70-99) 124 mg/dL (70-99) Calcium Level 8.6 mg/dL (8.5-10.1) 8.2 mg/dL (8.5-10.1) White Blood Count 11.2 x10^3/uL (4.0-11.0) Red Blood Count 4.71 x10^6/uL (4.30-5.70) Hemoglobin 12.7 g/dL (13.0-17.5) Hematocrit 39.0 % (39.0-53.0) Mean Corpuscular Volume 83 fL (79-100) Mean Corpuscular Hemoglobin 27 pg (25-35) Mean Corpuscular Hemoglobin Concent 33 g/dL (31-37) Red Cell Distribution Width 17.1 % (11.5-14.5) Platelet Count 380 x10^3/uL (140-400) Neutrophils (%) (Auto) 73 % (31-73) Lymphocytes (%) (Auto) 17 % (24-48) Monocytes (%) (Auto) 9 % (0-9) Eosinophils (%) (Auto) 1 % (0-3) Basophils (%) (Auto) 1 % (0-3) Neutrophils # (Auto) 8.1 x10^3/uL (1.8-7.7) Lymphocytes # (Auto) 1.9 x10^3/uL (1.0-4.8) Monocytes # (Auto) 1.0 x10^3/uL (0.0-1.1) Eosinophils # (Auto) 0.1 x10^3/uL (0.0-0.7) Basophils # (Auto) 0.1 x10^3/uL (0.0-0.2) Laboratory Tests Test 06/12/21 11:19 White Blood Count 11.2 x10^3/uL (4.0-11.0) Red Blood Count 4.71 x10^6/uL (4.30-5.70) Hemoglobin 12.7 g/dL (13.0-17.5) Hematocrit 39.0 % (39.0-53.0) Mean Corpuscular Volume 83 fL (79-100) Mean Corpuscular Hemoglobin 27 pg (25-35) Mean Corpuscular Hemoglobin Concent 33 g/dL (31-37) Red Cell Distribution Width 17.1 % (11.5-14.5) Platelet Count 380 x10^3/uL (140-400) Neutrophils (%) (Auto) 73 % (31-73) Lymphocytes (%) (Auto) 17 % (24-48) Monocytes (%) (Auto) 9 % (0-9) Eosinophils (%) (Auto) 1 % (0-3) Basophils (%) (Auto) 1 % (0-3) Neutrophils # (Auto) 8.1 x10^3/uL (1.8-7.7) Lymphocytes # (Auto) 1.9 x10^3/uL (1.0-4.8) Monocytes # (Auto) 1.0 x10^3/uL (0.0-1.1) Eosinophils # (Auto) 0.1 x10^3/uL (0.0-0.7) Basophils # (Auto) 0.1 x10^3/uL (0.0-0.2) Sodium Level 138 mmol/L (136-145) Potassium Level 3.6 mmol/L (3.5-5.1) Chloride Level 101 mmol/L (98-107) Carbon Dioxide Level 33 mmol/L (21-32) Anion Gap 4 (6-14) Blood Urea Nitrogen 20 mg/dL (8-26) Creatinine 1.1 mg/dL (0.7-1.3) Estimated GFR (Cockcroft-Gault) 73.8 Glucose Level 124 mg/dL (70-99) Calcium Level 8.2 mg/dL (8.5-10.1) Brief Hospital Course Patient is a 40-year-old white male presenting today due to several day history of dyspnea on exertion and lower extremity swelling. Patient was seen here in early April for similar presentation was found to be notably hypertensive thus was prescribed antihypertensives although never took him. He initially did okay however over the past week is having worsening problems with his breathing. Appears echo was performed at last presentation with a normal ejection fraction. Was some left ventricular hypertrophy however. On presentation to the emergency room patient blood pressure was gently lowered. Imaging labs were consistent with possible CHF exacerbation. He was denying chest pain when I was evaluating him. Interestingly the patient is reporting new onset visual hallucinations for the past 4 to 5 days. Patient says he cannot remember the episodes but from what his mother describes them to as he will just be staring off in a random corner and talking to things that are not there. Does admit to occasional marijuana use. Denies any new medication, new drug use, recent illnesses, sick contacts, recent travel. 06/11 BP improving 06/12 Patient seen and examined at bedside. Blood pressure improved, patient asymptomatic. Passed 6-minute walk test. Hypertensive regimen as below. Discharge home today. Discharge Information Condition at Discharge: Improved Disposition/Orders: D/C to Home Scheduled Amlodipine Besylate (Amlodipine Besylate) 10 Mg Tablet, 10 MG PO DAILY for HTN for 90 Days, #90 Ref 3 Prescribed by: DEE WHITLOCK MD on 12/09/19 1053 Last Action: Continued on 06/10/212037 by DEE WHITTAKER MD Aspirin (Aspirin Ec) 81 Mg Tablet.dr, 81 MG PO [id number] for cad for 90 Days, #90 Prescribed by: DEE WHITTAKER MD on 06/12/21 1240 Atorvastatin Calcium (Atorvastatin Calcium) 20 Mg Tablet, 20 MG PO QHS for HLD for 90 Days, #90 Ref 3 Prescribed by: DEE WHITLOCK MD on 12/09/19 1053 Last Action: Continued on 06/10/212037 by DEE WHITTAKER MD Carvedilol (Carvedilol ) 12.5 Mg Tablet, 25 MG PO [id number] for BLOOD PRESSURE for 30 Days, #120 Prescribed by: DEE WHITTAKER MD on 06/12/21 1240 Lisinopril (Lisinopril) 40 Mg Tablet, 40 MG PO DAILY for htn for 90 Days, #90 Prescribed by: DEE WHITTAKER MD on 06/12/21 1240 Discontinued Medications Hydralazine Hcl (Hydralazine Hcl) 50 Mg Tablet, 50 MG PO [id number] for BLOOD PRESSURE for 30 Days, #100 Prescribed by: COURTNEY KAT MD on 12/12/19 1654 Last Action: HELD on 06/10/212037 by DEE WHITTAKER MD Justicifation of Admission Dx: Justifications for Admission: Justification of Admission Dx: Yes NC: Acute NSTEMI DEE WHITTAKER MD Jun 12, 2021 15:58
[2021-06-12] MEDS ORDERED: CARVEDILOL 12.5 MG TABLET. PO SCH (17:00)
--- NOTE | 2021-06-14 13:57 | EKG ---
[facility] [address] [place] [address] Test Date: 2021-06-10 Test Time: 14:59:47 Pat Name: WILLIS CORTEZ Department: Room: Gender: M [employer]: : 1980 Requested By: BETI BROUSSARD Order Number: [id number] Reading MD: Measurements Intervals [place] Rate: 102 P: 51 MO: 148 QRS: 70 QRSD: 96 T: 41 QT: 370 QTc: 487 Interpretive Statements SINUS TACHYCARDIA LEFT ATRIAL ABNORMALITY QRS(T) CONTOUR ABNORMALITY CONSIDER ANTEROSEPTAL MYOCARDIAL DAMAGE ABNORMAL ECG RI6.01 Compared to ECG 04/16/2021 13:09:34 Sinus rhythm no longer present Prolonged QT interval no longer present
== END 2021-06-12 13:35 | disposition home or self-care (01) | DRG 291 ==
LOC: ER 13:51 → ED HOLD 18:26 → 6 SOUTH 06-11 18:27
PROVIDERS: ADMIT Student in an Organized Health Care Education/Training Program; ATTEND Student in an Organized Health Care Education/Training Program
DX: I11.0 Hypertensive heart disease with heart failure (principal); J96.00 Acute respiratory failure, unspecified whether with hypoxia or hypercapnia; I16.1 Hypertensive emergency; G93.40 Encephalopathy, unspecified; J98.11 Atelectasis; I50.43 Acute on chronic combined systolic (congestive) and diastolic (congestive) heart failure; E78.5 Hyperlipidemia, unspecified; F12.90 Cannabis use, unspecified, uncomplicated; F17.210 Nicotine dependence, cigarettes, uncomplicated; G47.33 Obstructive sleep apnea (adult) (pediatric); I15.8 Other secondary hypertension; I25.10 Atherosclerotic heart disease of native coronary artery without angina pectoris; I67.9 Cerebrovascular disease, unspecified; J45.909 Unspecified asthma, uncomplicated; Z20.822 Contact with and (suspected) exposure to COVID-19; Z79.899 Other long term (current) drug therapy; Z82.49 Family history of ischemic heart disease and other diseases of the circulatory system; Z91.19 Patient's noncompliance with other medical treatment and regimen; Z71.6 Tobacco abuse counseling
CPT/HCPCS: 36415; 70450; 70496; 70498; 71045; 80048; 80053; 80307; 81001; 83036; 83735; 83880; 84443; 84484; 85025; 93005; 94618; 96361; 96374; J1650; J1940; J3490; J7030; J7050; Q9967; U0003; U0005; 99285-25; G0378